=== PATIENT | female | born 1980 | race Caucasian/White ===

== ENCOUNTER 2018-09-29 04:52 | Emergency (ER) | payer OTHER ==
[2018-09-29] MEDS ORDERED: ONDANSETRON 4 MG/2 ML VIAL IVP STA ×2 (05:11→08:53)
[2018-09-29] MEDS ORDERED: SODIUM CHLORIDE 0.9% 1,000 ML IV ONE ×3 (05:11→08:23)
--- NOTE | 2018-09-29 05:28 | ED ---
Nausea/Vomiting/Diarrhea HPI - General Chief complaint: Nausea/Vomiting/Diarrhea Stated complaint: Vomiting Time Seen by Provider: 09/29/18 05:05 Source: patient, family Mode of arrival: ambulatory Limitations: no limitations - History of Present Illness Initial comments: This patient is a 38-year-old woman who presents to be evaluated for nausea and vomiting. She states that the symptoms have been going on little over 24 hours now. She has had greater than 20 episodes of vomiting. She does have some associated diffuse, crampy, abdominal pain. The patient states that her children had had similar symptoms A few days prior to her developing symptoms. Patient denies any change in bowel movements. No urinary symptoms. With the last episode of vomiting she states there may have been a trace of blood and that prompted her to be seen here. MD complaint: nausea, vomiting Onset/Timin -: hour(s) Description of Vomiting: food contents, watery Associated Abdominal Pain: Yes Location: diffuse Severity: mild Quality: cramping Consistency: constant Improves with: none Worsens with: none Context: sick contacts Associated Symptoms: denies other symptoms - Related Data Previous Rx's Medication Instructions Recorded Ondansetron Odt [Zofran ODT] 4 mg PO Q8HR PRN #10 tab 09/29/18 Allergies Allergy/AdvReac Type Severity Reaction Status Date / Time No Known Allergies Allergy Verified 09/29/18 05:00 Review of Systems ROS Statement: Those systems with pertinent positive or pertinent negative responses have been documented in the HPI. ROS Other: All systems not noted in ROS Statement are negative. Constitutional: Denies: fever, chills Respiratory: Denies: cough, dyspnea Cardiovascular: Denies: chest pain, palpitations Gastrointestinal: Reports: as per HPI, abdominal pain, nausea, vomiting, hematemesis. Denies: diarrhea, constipation, melena, hematochezia Genitourinary: Denies: dysuria, hematuria Musculoskeletal: Denies: back pain Skin: Denies: rash Neurological: Denies: headache, weakness, numbness Past Medical History Past Medical History: No Reported History Additional Past Medical History / Comment(s): sciatica, anemia History of Any Multi-Drug Resistant Organisms: None Reported Past Surgical History: No Surgical Hx Reported Past Psychological History: No Psychological Hx Reported Smoking Status: Current every day smoker Past Alcohol Use History: Occasional Past Drug Use History: None Reported General Exam Limitations: no limitations General appearance: alert, in no apparent distress Head exam: Present: atraumatic, normocephalic Eye exam: Present: normal appearance. Absent: scleral icterus, conjunctival injection ENT exam: Present: mucous membranes dry Respiratory exam: Present: normal lung sounds bilaterally. Absent: respiratory distress, wheezes, rales, rhonchi, stridor Cardiovascular Exam: Present: regular rate, normal rhythm, normal heart sounds. Absent: systolic murmur, diastolic murmur, rubs, gallop GI/Abdominal exam: Present: soft. Absent: distended, tenderness, guarding, rebound, rigid, organomegaly, mass Extremities exam: Present: normal inspection, normal capillary refill. Absent: pedal edema, calf tenderness Back exam: Present: normal inspection. Absent: CVA tenderness (R), CVA tenderness (L) Neurological exam: Present: alert Skin exam: Present: warm, dry, intact, normal color. Absent: rash Course Vital Signs 09/29/18 09/29/18 04:55 06:20 Temperature 98 F Pulse Rate 124 H 101 H Respiratory 20 18 Rate Blood Pressure 150/123 142/92 O2 Sat by Pulse 99 100 Oximetry Medical Decision Making - Lab Data Result diagrams: 09/29/18 05:15 09/29/18 05:15 Lab Results 09/29/18 09/29/18 09/29/18 Range/Units 05:15 05:15 06:20 WBC 17.8 H (3.8-10.6) k/uL RBC 4.20 (3.80-5.40) m/uL Hgb 16.4 H (11.4-16.0) gm/dL Hct 49.0 H (34.0-46.0) % MCV 116.7 H (80.0-100.0) fL MCH 39.1 H (25.0-35.0) pg MCHC 33.5 (31.0-37.0) g/dL RDW 13.2 (11.5-15.5) % Plt Count 218 (150-450) k/uL Neutrophils % (Manual) 96 % Lymphocytes % (Manual) 4 % Neutrophils # (Manual) 17.09 H (1.3-7.7) k/uL Lymphocytes # (Manual) 0.71 L (1.0-4.8) k/uL Nucleated RBCs 0 (0-0) /100 WBC Manual Slide Review Performed Macrocytosis Marked Sodium 136 L (137-145) mmol/L Potassium 4.1 (3.5-5.1) mmol/L Chloride 98 (98-107) mmol/L Carbon Dioxide 7 L* (22-30) mmol/L Anion Gap 31 mmol/L BUN 9 (7-17) mg/dL Creatinine 0.95 (0.52-1.04) mg/dL Est GFR (CKD-EPI)AfAm 89 (>60 ml/min/1.73 sqM) Est GFR (CKD-EPI)NonAf 77 (>60 ml/min/1.73 sqM) Glucose 154 H (74-99) mg/dL Calcium 9.7 (8.4-10.2) mg/dL Total Bilirubin 1.8 H (0.2-1.3) mg/dL AST 56 H (14-36) U/L ALT 77 H (9-52) U/L Alkaline Phosphatase 190 H (38-126) U/L Total Protein 9.4 H (6.3-8.2) g/dL Albumin 5.6 H (3.5-5.0) g/dL Amylase 77 (30-110) U/L Lipase 103 (23-300) U/L Urine Color Urine Appearance (Clear) Urine pH (5.0-8.0) Ur Specific [place] (1.001-1.035) Urine Protein (Negative) Urine Glucose (UA) (Negative) Urine Ketones (Negative) Urine Blood (Negative) Urine Nitrite (Negative) Urine Bilirubin (Negative) Urine Urobilinogen (<2.0) mg/dL Ur Leukocyte Esterase (Negative) Urine RBC (0-5) /hpf Urine WBC (0-5) /hpf Ur Squamous Epith Cells (0-4) /hpf Hyaline Casts (0-2) /lpf Urine Mucus (None) /hpf Urine HCG, Qual Not Detected (Not Detectd) 09/29/18 Range/Units 06:20 WBC (3.8-10.6) k/uL RBC (3.80-5.40) m/uL Hgb (11.4-16.0) gm/dL Hct (34.0-46.0) % MCV (80.0-100.0) fL MCH (25.0-35.0) pg MCHC (31.0-37.0) g/dL RDW (11.5-15.5) % Plt Count (150-450) k/uL Neutrophils % (Manual) % Lymphocytes % (Manual) % Neutrophils # (Manual) (1.3-7.7) k/uL Lymphocytes # (Manual) (1.0-4.8) k/uL Nucleated RBCs (0-0) /100 WBC Manual Slide Review Macrocytosis Sodium (137-145) mmol/L Potassium (3.5-5.1) mmol/L Chloride (98-107) mmol/L Carbon Dioxide (22-30) mmol/L Anion Gap mmol/L BUN (7-17) mg/dL Creatinine (0.52-1.04) mg/dL Est GFR (CKD-EPI)AfAm (>60 ml/min/1.73 sqM) Est GFR (CKD-EPI)NonAf (>60 ml/min/1.73 sqM) Glucose (74-99) mg/dL Calcium (8.4-10.2) mg/dL Total Bilirubin (0.2-1.3) mg/dL AST (14-36) U/L ALT (9-52) U/L Alkaline Phosphatase (38-126) U/L Total Protein (6.3-8.2) g/dL Albumin (3.5-5.0) g/dL Amylase (30-110) U/L Lipase (23-300) U/L Urine Color Yellow Urine Appearance Clear (Clear) Urine pH 6.0 (5.0-8.0) Ur Specific [place] 1.017 (1.001-1.035) Urine Protein 3+ H (Negative) Urine Glucose (UA) Negative (Negative) Urine Ketones 4+ H (Negative) Urine Blood Moderate H (Negative) Urine Nitrite Negative (Negative) Urine Bilirubin 2+ H (Negative) Urine Urobilinogen 8.0 (<2.0) mg/dL Ur Leukocyte Esterase Negative (Negative) Urine RBC 3 (0-5) /hpf Urine WBC 2 (0-5) /hpf Ur Squamous Epith Cells 4 (0-4) /hpf Hyaline Casts 39 H (0-2) /lpf Urine Mucus Rare H (None) /hpf Urine HCG, Qual (Not Detectd) - EKG Data -: EKG Interpreted by Me EKG shows normal: sinus rhythm, axis (Normal), intervals (Normal), QRS complexes (Normal), ST-T waves (Normal) Rate: tachycardia (Rate 102 BPM) Disposition Clinical Impression: Vomiting, Abdominal pain Disposition: HOME SELF-CARE Condition: Good Instructions: Abdominal Pain (ED), Acute Nausea and Vomiting (ED) Prescriptions: Ondansetron Odt [Zofran ODT] 4 mg PO Q8HR PRN #10 tab PRN Reason: Nausea Is patient prescribed a controlled substance at d/c from ED?: No Referrals: None,Stated [Primary Care Provider] - 1-2 days
[2018-09-29 05:38] LABS: HGB 16.4 gm/dL (11.4-16.0); MCH 39.1 pg (25.0-35.0); MCHC 33.5 g/dL (31.0-37.0); MCV 116.7 fL (80.0-100.0); Macrocytosis Marked; Mean Platelet Volume 8.1; Platelet Count 218 k/uL (150-450); RDW 13.2 % (11.5-15.5); WBC 17.8 k/uL (3.8-10.6)
[2018-09-29 05:44] LABS: Albumin 5.6 g/dL (3.5-5.0); Calcium 9.7 mg/dL (8.4-10.2); Potassium 4.1 mmol/L (3.5-5.1); Total Bilirubin 1.8 mg/dL (0.2-1.3); Total Protein 9.4 g/dL (6.3-8.2)
[2018-09-29 06:05] LABS: Lymphocytes # (M) 0.71 k/uL (1.0-4.8); Neutrophils # (M) 17.09 k/uL (1.3-7.7); Neutrophils % (M) 96 %; Nucleated Red Blood Cells 0 /100 WBC (0-0); Total Cells Counted 100
[2018-09-29] MEDS ORDERED: MORPHINE SULFATE 4 MG/ML SYRINGE IV STA (06:23)
[2018-09-29 06:42] LABS: Appearance,Urine Clear (Clear); Bilirubin,Urine 2+ (Negative); Blood,Urine Moderate (Negative); Color,Urine Yellow; Glucose,Urine (UA) Negative (Negative); Hyaline Casts,Urine 39 /lpf (0-2); Ketones,Urine 4+ (Negative); Leukocyte Esterase,Urine Negative (Negative); Mucus,Urine Rare /hpf; Nitrite,Urine Negative (Negative); Protein,Urine 3+ (Negative); RBC,Urine 3 /hpf (0-5); Specific Gravity,Urine 1.017 (1.001-1.035); Squamous Epithelial Cell,Urine 4 /hpf (0-4); WBC,Urine 2 /hpf (0-5)
--- NOTE | 2018-09-29 06:50 | CT ---
EXAM: CT Abdomen and Pelvis Without Intravenous Contrast CLINICAL HISTORY: ITS.REASON CT Reason: Pain TECHNIQUE: Axial computed tomography images of the abdomen and pelvis without intravenous contrast. CTDI is 7.8 mGy and DLP is 427 mGy-cm. This CT exam was performed using one or more of the following dose reduction techniques: automated exposure control, adjustment of the mA and/or kV according to patient size, and/or use of iterative reconstruction technique. Coronal and sagittal reformatted images were created and reviewed. COMPARISON: No relevant prior studies available. FINDINGS: Lung bases: Unremarkable. No mass. No consolidation. Mediastinum: Small hiatal hernia. ABDOMEN: Liver: Fatty liver. Gallbladder and bile ducts: Unremarkable. No calcified stones. No ductal dilation. Pancreas: Unremarkable. No ductal dilation. Spleen: Unremarkable. No splenomegaly. Adrenals: Unremarkable. No mass. Kidneys and ureters: Punctate left intrarenal calculus. No obstructing stones. No hydronephrosis. Stomach and bowel: Unremarkable. No obstruction. No mucosal thickening. PELVIS: Appendix: No findings to suggest acute appendicitis. Bladder: Unremarkable. No stones. Reproductive: Unremarkable as visualized. ABDOMEN and PELVIS: Intraperitoneal space: Unremarkable. No free air. No significant fluid collection. Bones/joints: Degenerative changes of the spine with a levoconvex scoliosis. No acute fracture. No dislocation. Soft tissues: Unremarkable. Vasculature: Unremarkable. No abdominal aortic aneurysm. Lymph nodes: Unremarkable. No enlarged lymph nodes. IMPRESSION: Fatty liver. Small hiatal hernia. Punctate left intrarenal calculus
[2018-09-29 09:53] LABS: ALT 58 U/L (9-52); AST 39 U/L (14-36); Albumin 3.9 g/dL (3.5-5.0); Alkaline Phosphatase 125 U/L (38-126); Anion Gap 18 mmol/L; Blood Urea Nitrogen 7 mg/dL (7-17); Calcium 7.3 mg/dL (8.4-10.2); Carbon Dioxide 10 mmol/L (22-30); Chloride 110 mmol/L (98-107); Glucose 93 mg/dL (74-99); Sodium 138 mmol/L (137-145); Total Bilirubin 1.1 mg/dL (0.2-1.3); Total Protein 6.6 g/dL (6.3-8.2)
[2018-09-29 10:08] VITALS: BP 133/82; PULSE 101; RESP 18; TEMP 98.6
== END 2018-09-29 10:08 | disposition home or self-care (01) ==
LOC: EC 04:52
DX: R11.2 Nausea with vomiting, unspecified (principal); R10.84 Generalized abdominal pain; F17.200 Nicotine dependence, unspecified, uncomplicated
CPT/HCPCS: 36415; 93005; 80053; 82150; 83690; 85025; 81001; 81025; 74176; 99284; 96374; 96375; 96376; 96361 ×4; J2270; J2405

== ENCOUNTER → 2019-02-17 | Outpatient (CLI) | payer OTHER ==
--- NOTE | 2019-02-17 13:57 | CT ---
EXAMINATION TYPE: CT abdomen pelvis w con DATE OF EXAM: 02/17/2019 HISTORY: Pelvic pain, hematuria CT DLP: 613mGycm Automated Exposure Control for Dose Reduction was Utilized. CONTRAST: CT scan of the abdomen and pelvis is performed with IV Contrast, patient injected with 100 mL of Isov ue 300. COMPARISON: 09/29/2018. FINDINGS: LUNG BASES: No significant abnormality is appreciated. LIVER/GB: Moderate degree hepatic steatosis is seen, limiting evaluation for hepatic masses. No radio paque calculi are seen within the gallbladder. PANCREAS: No significant abnormality is seen. SPLEEN: Benign splenic granuloma is noted. ADRENALS: No significant abnormality is seen. KIDNEYS: Left and scarring is seen of the left upper pole. Otherwise the kidneys enhance and excrete symmetrically. No hydronephrosis. BOWEL: There is very subtle pericolonic fat stranding surrounding the hepatic flexure. Multifocal sub mucosal fat deposition is seen within the colon that can be seen in chronic colitis. No dilated large or small bowel. UTERUS/ADNEXA: Follicular and/or cystic changes are seen of the bilateral ovaries. Probable nabothian cyst is seen within the cervix. LYMPH NODES: No greater than 1cm abdominal or pelvic lymph nodes are appreciated. OSSEOUS STRUCTURES: Minimal degenerative changes of the spine. IMPRESSION: 1. Findings suggesting mild acute uncomplicated hepatic flexure colitis. Submucosal deficits of fat w ithin the colon multifocally can also be seen in chronic colitis. 2. Moderate degree hepatic steatosis. 3. No suspicious renal lesion in this patient with hematuria. Urinary bladder does not contain contra st and is suboptimally evaluated on CT although no gross evidence of wall thickening is seen. 4. Follicular and/or cystic changes are seen of the ovaries in this patient with pelvic pain. Pelvic ultrasound could assess for hemorrhagic follicles or potential endometriomas.
== END | disposition home or self-care (01) ==
LOC: RADCTMAIN 09:12
PROVIDERS: ATTEND Family Medicine
DX: K76.0 Fatty (change of) liver, not elsewhere classified (principal); K63.89 Other specified diseases of intestine
CPT/HCPCS: 74177; Q9967

== ENCOUNTER → 2019-02-23 | Outpatient (CLI) | payer OTHER ==
--- NOTE | 2019-02-24 04:01 | NM ---
EXAMINATION TYPE: NM hepatobiliary w EF DATE OF EXAM: 02/23/2019 COMPARISON: NONE HISTORY: 39-year-old female with epigastric and abdominal pain, nausea and vomiting, decrease in appe tite, elevated LFTs. TECHNIQUE: After the intravenous administration of 4.22 mCi Tc 99m Mebrofenin hepatobiliary scintigra phy is performed. Immediate images post injection. FINDINGS: There is satisfactory initial accumulation of tracer by the liver. The gallbladder is visualized wit hin 12 minutes. The small bowel activity is noted within 30 minutes. At one hour 8 ounces of oral e nsure plus is given to mimic CCK and gallbladder ejection fraction is calculated at 81 %, slightly el evated (normal 35-80%). IMPRESSION: 1. No scintigraphic evidence for acute/chronic cholecystitis or biliary dyskinesia. 2. Slightly elevated gallbladder ejection fraction. This may be seen in the setting of gallbladder hy perkinesis.
== END | disposition home or self-care (01) ==
LOC: RADNMMAIN 15:11
PROVIDERS: ATTEND Family Medicine
DX: R94.8 Abnormal results of function studies of other organs and systems (principal); R10.84 Generalized abdominal pain; K76.0 Fatty (change of) liver, not elsewhere classified
CPT/HCPCS: 78226; A9537

== ENCOUNTER 2019-03-03 12:55 | Day surgery (SDC) | payer OTHER ==
[2019-02-26 13:36] VITALS: BMI 29.0
[~2019-03-03 12:55] MED LIST: LACTATED RINGERS 1,000 ML IV SCH; LIDOCAINE 1% 20 ML VIAL (10MG/ML) FOR IV START INTRADERMA PRN
[2019-03-03 13:15] VITALS: RESP 16; TEMP 97.5
[2019-03-03] MEDS ORDERED: fentaNYL (PF) 50 MCG/ML 2 ML AMP ONE (13:27)
[2019-03-03] MEDS ORDERED: MIDAZOLAM 2 MG/2 ML VIAL ONE (13:27)
[2019-03-03] MEDS ORDERED: PROPOFOL 10 MG/ML 20 ML VIAL IV ONE (13:27)
[2019-03-03] MEDS ORDERED: ONDANSETRON 4 MG/2 ML VIAL IVP ONE (13:30)
[2019-03-03 14:10] VITALS: BP 119/88; PULSE 85
--- NOTE | 2019-03-03 14:24 | P.PCN ---
Date of Procedure: 03/03/19 Procedure(s) Performed: Procedure: Colonoscopy and biopsy. Preoperative diagnosis: Change in bowel habits and suspected colitis. Postoperative diagnosis: 1. Normal colon and terminal ileum. 2. Biopsies obtained from the terminal ileum and right colon. Preparation: HalfLytely prep. Sedation: Was provided by anesthesia. Brief clinical history: The patient is a 39-year-old female who is scheduled for this evaluation because of change in bowel habits and suspected colitis on CT performed earlier this month. Procedure: With the patient on her left lateral decubitus position and after informed consent and adequate sedation, the perianal area was inspected and it did not show any fissures or fistulas. There were no masses felt on digital rectal examination. The Olympus CFH 190L video colonoscope was then inserted in the rectum in the usual fashion and advanced to the cecum. I intubated the il eocecal valve and examined the terminal ileum. Terminal ileum and colon appeared healthy with no evidence of edema, erythema, friability, ulceration, exudation or spontaneous bleeding. No polyps or tumors were seen. No obvious diverticular disease or other pathology. I obtained biopsies from the terminal ileum and right colon then the endoscope was withdrawn. The patient tolerated the procedure well. Plan: The patient was reassured. She will follow-up with you as planned. Further plans based on her course and biopsy results.
== END 2019-03-03 14:33 | disposition home or self-care (01) ==
LOC: ORWHC2ENDO 12:55
DX: R19.4 Change in bowel habit (principal); F17.200 Nicotine dependence, unspecified, uncomplicated; Z79.1 Long term (current) use of non-steroidal anti-inflammatories (NSAID)
CPT/HCPCS: 81025; 88305; 45380; J2250; J2405; J3010; J2704

== ENCOUNTER → 2019-03-04 | Outpatient (CLI) | payer OTHER ==
--- NOTE | 2019-03-05 09:04 | US ---
EXAMINATION TYPE: US transvaginal DATE OF EXAM: 03/04/2019 COMPARISON: NONE CLINICAL HISTORY: R10.2 Pelvic and perineal pain. Pelvic pain x few months, pt unsure of LMP TECHNIQUE: Transvaginal (TV). Transvaginal sonographic images of the pelvis were acquired. EXAM MEASUREMENTS: Uterus: 8.2 x 3.5 x 4.1 cm Endometrial Stripe: 1.0 cm Right Ovary: 3.2 x 2.6 x 1.4 cm Left Ovary: 2.7 x 2.6 x 2.4 cm 1. Uterus: Anteverted 2. Endometrium: Heterogeneous with cystic areas within. There appears to be a possible vascular stal k leading to this hypoechoic area and pelvis possible. 3. Right Ovary: wnl 4. Left Ovary: Cyst= 2.3 x 1.4 x 2.0 cm. This appears simple and is likely physiologic in this preme nopausal female. 5. Bilateral Adnexa: wnl 6. Posterior cul-de-sac: wnl IMPRESSION: Possible endometrial polyp as there is endometrial heterogeneity in the questionable vasc ular stalk leading to this possible polyp on image 22/33. Sonohysterogram could be performed for furt her evaluation or direct visualization.
== END | disposition home or self-care (01) ==
LOC: RADUSWWP 16:16
PROVIDERS: ATTEND Obstetrics & Gynecology
DX: R10.2 Pelvic and perineal pain (principal)
CPT/HCPCS: 76830

== ENCOUNTER → 2019-07-18 | Outpatient (CLI) | payer OTHER ==
--- NOTE | 2019-07-20 04:16 | CT ---
EXAMINATION TYPE: CT abdomen pelvis w con DATE OF EXAM: 07/18/2019 COMPARISON: 02/17/2019 and 09/29/2018 HISTORY: 39-year-old female Enlarged liver, abdominal pain TECHNIQUE: Contiguous axial scanning of the abdomen and pelvis following administration of 100 ml Iso sada 300 IV contrast. Delayed images through the kidneys and coronal/sagittal reconstructions perform ed. CT DLP: 1192 mGycm Automated exposure control for dose reduction was used. FINDINGS: Heart normal size without pericardial effusion. Lung bases clear without pleural effusion. Liver enlarged measuring 22.9 cm craniocaudal. Calcified granuloma anterior mid liver. Low attenuatio n of the hepatic parenchyma in comparison to the spleen on venous phase. No biliary ductal dilatation. Portal venous system is patent. Gallbladder, adrenal glands, kidneys, and pancreas appear within normal limits. Calcified granuloma anterior spleen. No dilated small bowel, free fluid, or free air. No mesenteric or retroperitoneal lymphadenopathy. Normal appendix. Prominent liquid stool seen throughout gas seen colon. Redundant sigmoid colon. No p ericolonic inflammatory change. Bladder is nondistended. Uterus is anteverted. Both ovaries are visualized. 1.5 cm dominant follicle or functional cyst in the left ovary. Pelvic phleboliths. No abnormal fluid collection in the pelvis or pelvic lymphadenopathy seen. Bones: No osseous destructive process. IMPRESSION: 1. HEPATOMEGALY (22.9 CM) WITH AT LEAST MODERATE HEPATIC STEATOSIS. CORRELATE WITH LFT's, LIPID PROFI LE, AND PATIENT RISK FACTORS. 2. PROMINENT LIQUID STOOL THROUGHOUT GASSY COLON. FINDINGS SUGGEST DIARRHEAL STATE. CLINICALLY CORREL ATE. 3. PRIOR GRANULOMATOUS DISEASE.
== END | disposition home or self-care (01) ==
LOC: RADCTMAIN 10:11
PROVIDERS: ATTEND Family Medicine
DX: D71 Functional disorders of polymorphonuclear neutrophils (principal); K76.0 Fatty (change of) liver, not elsewhere classified; R16.0 Hepatomegaly, not elsewhere classified
CPT/HCPCS: 74177; Q9967

== ENCOUNTER 2020-01-13 13:33 | Inpatient (IN) | payer BC, OTHER ==
[2020-01-13] MEDS ORDERED: MORPHINE SULFATE 4 MG/ML SYRINGE IV STA (13:41)
[2020-01-13] MEDS ORDERED: SODIUM CHLORIDE 0.9% 1,000 ML IV STA (13:41)
[2020-01-13] MEDS ORDERED: THIAMINE 100 MG/ML 2 ML VIAL IM STA (13:42)
[2020-01-13] MEDS ORDERED: LORazepam 2 MG/ML INJ IV STA (13:42)
--- NOTE | 2020-01-13 14:19 | ED ---
General Adult HPI - General Chief complaint: Nausea/Vomiting/Diarrhea Stated complaint: Cough, Vomiting Time Seen by Provider: 01/13/20 13:37 Source: patient, family, EMS, RN notes reviewed, old records reviewed Mode of arrival: EMS Limitations: physical limitation - History of Present Illness Initial comments: 39-year-old female presented for evaluation of generalized weakness, fatigue, nausea vomiting and abdominal pain. Symptoms have been present for approximately one week. Patient admits to heavy daily alcohol consumption up until one week ago where she began feeling ill. She states she has not had a drink in the last 6 or 7 days. She is reporting diffuse abdominal pain. She also complains of cough and congestion. She's had several episodes of vomiting daily for the past one week and has been unable to keep anything down. She also reports some diarrhea. - Related Data Home Medications Medication Instructions Recorded Confirmed Melatonin Unknown Dose 1 tab PO HS PRN 01/13/20 01/13/20 Allergies Allergy/AdvReac Type Severity Reaction Status Date / Time No Known Allergies Allergy Verified 01/13/20 14:14 Review of Systems ROS Statement: Those systems with pertinent positive or pertinent negative responses have been documented in the HPI. ROS Other: All systems not noted in ROS Statement are negative. Past Medical History Past Medical History: No Reported History Additional Past Medical History / Comment(s): freq nausea,elevated enzymes,bleeding with urination,sciatica, anemia,heart murmur as a child History of Any Multi-Drug Resistant Organisms: None Reported Past Surgical History: No Surgical Hx Reported Additional Past Anesthesia/Blood Transfusion Reaction / Comment(s): never has had general anesthesia,has had epidural in past with labor. Past Psychological History: No Psychological Hx Reported Smoking Status: Current every day smoker Past Alcohol Use History: Abuse, Daily Past Drug Use History: None Reported - Past Family History Mother Additional Family Medical History / Comment(s): MTHR bleeding disorder Sister(s) Additional Family Medical History / Comment(s): "sticky platelet disorder." General Exam Limitations: physical limitation General appearance: alert, in no apparent distress Head exam: Present: atraumatic, normocephalic Eye exam: Present: normal appearance, PERRL ENT exam: Present: mucous membranes dry Neck exam: Absent: normal inspection, tenderness Respiratory exam: Present: normal lung sounds bilaterally. Absent: respiratory distress, wheezes Cardiovascular Exam: Present: normal rhythm, tachycardia GI/Abdominal exam: Present: soft, tenderness (Minimal diffuse tenderness). Ab sent: distended, guarding, rebound Extremities exam: Present: normal inspection, normal capillary refill. Absent: pedal edema, calf tenderness Neurological exam: Present: alert, oriented X3, CN II-XII intact. Absent: motor sensory deficit Psychiatric exam: Present: depressed, flat affect Skin exam: Present: warm, dry, intact. Absent: cyanosis, diaphoretic Course Vital Signs 01/13/20 01/13/20 13:34 13:43 Temperature 98 F Pulse Rate 116 H 114 H Respiratory 16 18 Rate Blood Pressure 114/87 104/75 O2 Sat by Pulse 100 96 Oximetry EKG Findings - EKG Comments: EKG Findings:: EKG: Sinus tachycardia prolonged QT, rate of 103 KS interval 144, QRS duration 90, QTC prolonged at 542. Medical Decision Making - Medical Decision Making 39-year-old female with generalized weakness, vomiting. Patient's. Skin cach ectic, dehydrated on exam. She admits to heavy alcohol consumption of she states she quit drinking about one week ago. Workup in the emergency department reveals chest x-ray which is negative for acute cardiopulmonary disease. She has hyponatremia with a sodium of 127. Potassium 3.2 magnesium 1.5. These are replaced. She will be admitted for symptomatic control. She will be closely monitored on a monitored bed as she has QT prolongation which is likely secondary to try and abnormalities. Case is discussed with Dr. Marley who will admit. - Lab Data Result diagrams: 01/13/20 13:45 01/13/20 13:45 Lab Results 01/13/20 01/13/20 01/13/20 Range/Units 13:45 13:45 13:45 WBC 10.1 (3.8-10.6) k/uL RBC 3.06 L (3.80-5.40) m/uL Hgb 11.7 (11.4-16.0) gm/dL Hct 34.3 (34.0-46.0) % MCV 112.2 H (80.0-100.0) fL MCH 38.3 H (25.0-35.0) pg MCHC 34.1 (31.0-37.0) g/dL RDW 13.9 (11.5-15.5) % Plt Count 125 L (150-450) k/uL Neutrophils % 85 % Lymphocytes % 6 % Monocytes % 6 % Eosinophils % 1 % Basophils % 0 % Neutrophils # 8.6 H (1.3-7.7) k/uL Lymphocytes # 0.6 L (1.0-4.8) k/uL Monocytes # 0.7 (0-1.0) k/uL Eosinophils # 0.1 (0-0.7) k/uL Basophils # 0.0 (0-0.2) k/uL Manual Slide Review Performed Poikilocytosis (manual Present Anisocytosis (manual) Present Macrocytosis Marked A PT 9.7 (9.0-12.0) sec INR 0.9 (<1.2) APTT 22.4 (22.0-30.0) sec Sodium 127 L (137-145) mmol/L Potassium 3.2 L (3.5-5.1) mmol/L Chloride 88 L (98-107) mmol/L Carbon Dioxide 21 L (22-30) mmol/L Anion Gap 18 mmol/L BUN 19 H (7-17) mg/dL Creatinine 0.32 L (0.52-1.04) mg/dL Est GFR (CKD-EPI)AfAm >90 (>60 ml/min/1.73 sqM) Est GFR (CKD-EPI)NonAf >90 (>60 ml/min/1.73 sqM) Glucose 100 H (74-99) mg/dL Plasma Lactic Acid Luis Enrique (0.7-2.0) mmol/L Calcium 9.0 (8.4-10.2) mg/dL Magnesium 1.5 L (1.6-2.3) mg/dL Total Bilirubin 1.3 (0.2-1.3) mg/dL AST 42 H (14-36) U/L ALT 15 (4-34) U/L Alkaline Phosphatase 140 H (38-126) U/L Troponin I (0.000-0.034) ng/mL Total Protein 6.8 (6.3-8.2) g/dL Albumin 3.9 (3.5-5.0) g/dL 01/13/20 01/13/20 Range/Units 13:45 13:45 WBC (3.8-10.6) k/uL RBC (3.80-5.40) m/uL Hgb (11.4-16.0) gm/dL Hct (34.0-46.0) % MCV (80.0-100.0) fL MCH (25.0-35.0) pg MCHC (31.0-37.0) g/dL RDW (11.5-15.5) % Plt Count (150-450) k/uL Neutrophils % % Lymphocytes % % Monocytes % % Eosinophils % % Basophils % % Neutrophils # (1.3-7.7) k/uL Lymphocytes # (1.0-4.8) k/uL Monocytes # (0-1.0) k/uL Eosinophils # (0-0.7) k/uL Basophils # (0-0.2) k/uL Manual Slide Review Poikilocytosis (manual Anisocytosis (manual) Macrocytosis PT (9.0-12.0) sec INR (<1.2) APTT (22.0-30.0) sec Sodium (137-145) mmol/L Potassium (3.5-5.1) mmol/L Chloride (98-107) mmol/L Carbon Dioxide (22-30) mmol/L Anion Gap mmol/L BUN (7-17) mg/dL Creatinine (0.52-1.04) mg/dL Est GFR (CKD-EPI)AfAm (>60 ml/min/1.73 sqM) Est GFR (CKD-EPI)NonAf (>60 ml/min/1.73 sqM) Glucose (74-99) mg/dL Plasma Lactic Acid Luis Enrique 1.2 (0.7-2.0) mmol/L Calcium (8.4-10.2) mg/dL Magnesium (1.6-2.3) mg/dL Total Bilirubin (0.2-1.3) mg/dL AST (14-36) U/L ALT (4-34) U/L Alkaline Phosphatase (38-126) U/L Troponin I <0.012 (0.000-0.034) ng/mL Total Protein (6.3-8.2) g/dL Albumin (3.5-5.0) g/dL Critical Care Time Critical Care Time: Yes Total Critical Care Time: 35 Disposition Clinical Impression: Dehydration, Hypokalemia, Hypomagnesemia, Hyponatremia Disposition: ADMITTED IP TO THIS HOSP Condition: Stable Is patient prescribed a controlled substance at d/c from ED?: No Referrals: None,Stated [Primary Care Provider] - 1-2 days Decision to Admit Reason: Admit from EC Decision Date: 01/13/20 Decision Time: 15:57
[2020-01-13 14:22] LABS: ALT 15 U/L (4-34); AST 42 U/L (14-36); African American GFR (CKD) >90 (>60 ml/min/1.73 sqM); Albumin 3.9 g/dL (3.5-5.0); Alkaline Phosphatase 140 U/L (38-126); Anion Gap 18 mmol/L; Blood Urea Nitrogen 19 mg/dL (7-17); Carbon Dioxide 21 mmol/L (22-30); Chloride 88 mmol/L (98-107); Glucose 100 mg/dL (74-99); Magnesium 1.5 mg/dL (1.6-2.3); Non-African American GFR(CKD) >90 (>60 ml/min/1.73 sqM); Sodium 127 mmol/L (137-145); Total Bilirubin 1.3 mg/dL (0.2-1.3); Total Protein 6.8 g/dL (6.3-8.2)
[2020-01-13 14:28] LABS: Potassium 3.2 mmol/L (3.5-5.1)
[2020-01-13 14:36] LABS: Basophils % (A) 0 %; Eosinophils # (A) 0.1 k/uL (0-0.7); Eosinophils % (A) 1 %; HCT 34.3 % (34.0-46.0); HGB 11.7 gm/dL (11.4-16.0); Lymphocytes # (A) 0.6 k/uL (1.0-4.8); Lymphocytes % (A) 6 %; MCH 38.3 pg (25.0-35.0); MCHC 34.1 g/dL (31.0-37.0); MCV 112.2 fL (80.0-100.0); Macrocytosis Marked; Mean Platelet Volume 11.4; Monocytes # (A) 0.7 k/uL (0-1.0); Monocytes % (A) 6 %; Neutrophils # (A) 8.6 k/uL (1.3-7.7); Neutrophils % (A) 85 %; Platelet Count 125 k/uL (150-450); RBC 3.06 m/uL (3.80-5.40); RDW 13.9 % (11.5-15.5); WBC 10.1 k/uL (3.8-10.6)
[2020-01-13 14:45] LABS: INR 0.9 (<1.2); Partial Thromboplastin Time 22.4 sec (22.0-30.0); Prothrombin Time 9.7 sec (9.0-12.0)
--- NOTE | 2020-01-13 15:08 | XR ---
EXAMINATION TYPE: XR chest 2V DATE OF EXAM: 01/13/2020 COMPARISON: NONE TECHNIQUE: PA and lateral views submitted. HISTORY: Shortness of breath FINDINGS: The lungs are clear and there is no pneumothorax, pleural effusion, or focal pneumonia. Heart size normal. No overt failure. Biapical pleural thickening. IMPRESSION: 1. No acute process.
[2020-01-13 15:19] LABS: Anisocytosis (M) Present; Poikilocytosis (M) Present
[2020-01-13] MEDS ORDERED: LORazepam 2 MG/ML INJ IV PRN ×3 (15:45)
[2020-01-13] MEDS ORDERED: NALOXONE 0.4 MG/ML 1 ML VIAL IV PRN (15:54)
[2020-01-13] MEDS: SODIUM CHLORIDE 0.9% 1,000 ML IV SCH (16:06)
[2020-01-13] MEDS: MAGNESIUM SULFATE-D5W PMX 1 GM in DEXTROSE/WATER 1 100ML.BAG IVPB SCH ×2 (16:06→18:33)
[2020-01-13] MEDS ORDERED: TEMAZEPAM 15 MG CAP PO PRN (17:00)
[2020-01-13] MEDS ORDERED: ACETAMINOPHEN TAB 500 MG TAB PO PRN (17:00)
[2020-01-13] MEDS ORDERED: Magnesium Replacement Protocol 1 EACH MISC MISCELLANE PRN (17:02)
[2020-01-13] MEDS ORDERED: Potassium Replacement Protocol 1 EACH MISC MISCELLANE PRN (17:02)
--- NOTE | 2020-01-13 18:15 | CT ---
EXAMINATION TYPE: CT brain wo con DATE OF EXAM: 01/13/2020 COMPARISON: Brain MR 02/25/2012 HISTORY: Weakness CT DLP: 1091.4 mGycm. Automated Exposure Control for Dose Reduction was Utilized. TECHNIQUE: CT scan of the head is performed without contrast. FINDINGS: There is no acute intracranial hemorrhage, mass effect, or midline shift identified. The ventricles and sulci are within normal limits in size. The globes are intact and the visualized sin uses are remarkable for inflammatory change in the right maxillary sinus. IMPRESSION: No acute intracranial hemorrhage, mass effect, or midline shift is seen.
--- NOTE | 2020-01-13 18:35 | HP ---
HISTORY AND PHYSICAL DATE OF SERVICE: 01/13/2020 CHIEF COMPLAINTS: Nausea, vomiting, diarrhea and weakness. HISTORY OF PRESENT ILLNESS: This 39-year-old woman with a past medical history of multiple medical problems, including possible peripheral neuropathy, history of weakness, history of significant problems with alcohol, not being followed by a primary physician in the outpatient setting, was apparently living with her family. Apparently between her and her , the patient takes about a pint of alcohol, according to the family. The patient is complaining of increasing weakness and diminished p.o. intake. The patient had difficulty in walking and had multiple falls. The patient was taken to [facility] for further evaluation and treatment. There is no history of any fever, rigor or chills. No history of headache, loss of consciousness, seizures at this time. The patient has not had a drink in the last 6 to 7 days. The patient also is complaining of diffuse abdominal pain as well as some cough and congestion. There is no history of any fever, rigors or chills. PAST MEDICAL HISTORY: History of frequent nausea, elevated liver enzymes, history of nicotine dependence, alcohol abuse. HOME MEDICATIONS: Melatonin. ALLERGIES: NONE. FAMILY HISTORY: History of MTHFR bleeding disorder. SOCIAL HISTORY: History of smoking. History of alcohol, as mentioned earlier. REVIEW OF SYSTEMS: ENT: No diminished hearing. No diminished vision. CARDIOVASCULAR SYSTEM: No angina, palpitations. RESPIRATORY SYSTEM: As mentioned earlier. GI: As mentioned earlier. : No dysuria or retention. NERVOUS SYSTEM: No numbness, weakness. ALLERGY/IMMUNOLOGY: No asthma, hayfever. MUSCULOSKELETAL: As mentioned earlier. HEMATOLOGY/ONCOLOGY: No history of anemia. ENDOCRINE: No history of diabetes, hypothyroidism. CONSTITUTIONAL: As mentioned earlier. DERMATOLOGY: Negative. RHEUMATOLOGY: Negative. PSYCHIATRY: As mentioned earlier. PHYSICAL EXAMINATION: Patient alert and oriented x3. Pulse is 114, blood pressure 104/75, respiration 18, temperature 98 degrees, pulse ox 96% on room air. HEENT: Conjunctivae normal. Oral mucosa dry. NECK: No jugular venous distention. CARDIOVASCULAR SYSTEM: S1, S2 muffled. No S3. No S4. RESPIRATORY SYSTEM: Breath sounds diminished at the bases. A few scattered rhonchi and crackles. ABDOMEN: Soft. Mild diffuse discomfort on palpation. LEGS: Bilateral leg edema. NERVOUS SYSTEM: Higher functions as mentioned earlier. Moves all 4 limbs. Mild diffuse weakness diffusely. Otherwise, sensory impairment in both lower limbs. SKIN: Multiple bruises present and telangiectasia also present. LYMPHATICS: No lymph node palpable in neck, axillae or groin. JOINTS: No active deforming arthropathy. LABS: WBC 10.1, hemoglobin 11.7, MCV 112.2, platelets 125. Sodium 137, potassium 3.2. Creatinine 0.32, magnesium 1.5. ASSESSMENT: 1. Nausea and vomiting with possible acute gastroenteritis and gastritis. 2. Significant peripheral neuropathy with gait dysfunction. 3. History of alcoholism as well as acute delirium tremens. 4. Thrombocytopenia. 5. Increased mean corpuscular volume. 6. Hyponatremia. 7. Hypokalemia. 8. Electrolyte abnormalities. 9. Dehydration. 10.Hypomagnesemia. 11.History of anemia. 12.History of cardiac murmur as a child. 13.History of sciatica. 14.Degenerative joint disease. 15.History of nicotine dependence. RECOMMENDATIONS AND DISCUSSION: In this 39-year-old woman who presented with multiple complex medical issues, we will monitor the patient closely, continue the current medications, continue with symptomatic treatment. I recommend CIWA protocol. Otherwise, continue to monitor. I would also recommend PT/OT evaluation and supplement vitamins. Supplement electrolytes. Repeat electrolyte. Possible ECF rehab at this time. Prognosis is guarded because of multiple complex medical issues. Discussed with the patient. See orders for details. CIWA protocol also will be utilized. I recommend that the patient follow up with a primary physician also. MMBARBIL / IJN: [id number] /
[2020-01-13] MEDS: POTASSIUM CHLORIDE 10 MEQ in WATER FOR INJECTION 1 100ML.BAG IVPB SCH ×4 (18:54→22:20)
[2020-01-13] MEDS: HEPARIN SODIUM,PORCINE 5,000 UNIT/ML 1 ML VIAL SQ SCH (20:07)
[2020-01-13] MEDS: THIAMINE 100 MG TAB PO SCH (20:07)
[2020-01-14 00:32] LABS: Amorphous Sediment,Urine Rare /hpf; Appearance,Urine Cloudy (Clear); Bilirubin,Urine Negative (Negative); Blood,Urine Negative (Negative); Color,Urine Yellow; Glucose,Urine (UA) Negative (Negative); Hyaline Casts,Urine 1 /lpf (0-2); Ketones,Urine 2+ (Negative); Leukocyte Esterase,Urine Large (Negative); Mucus,Urine Rare /hpf; Nitrite,Urine Negative (Negative); PH, Urine 6.5 (5.0-8.0); Protein,Urine Trace (Negative); RBC,Urine 1 /hpf (0-5); Specific Gravity,Urine 1.011 (1.001-1.035); Squamous Epithelial Cell,Urine <1 /hpf (0-4); Urobilinogen,Urine <2.0 mg/dL (<2.0); WBC,Urine 10 /hpf (0-5)
[2020-01-14] MEDS: SODIUM CHLORIDE 0.9% 1,000 ML IV SCH ×3 (00:38→19:52)
[2020-01-14] MEDS: POTASSIUM CHLORIDE ER 20 MEQ TAB.ER PO SCH ×4 (00:38→05:53)
[2020-01-14] MEDS ORDERED: ONDANSETRON 4 MG in SODIUM CHLORIDE 0.9% 50 ML IVPB PRN (00:50)
[2020-01-14] MEDS: ONDANSETRON 4 MG/2 ML VIAL IVP PRN ×3 (01:03→22:37)
[2020-01-14 02:50] LABS: Basophils % (A) 0 %; Eosinophils # (A) 0.2 k/uL (0-0.7); Eosinophils % (A) 2 %; HCT 27.3 % (34.0-46.0); Lymphocytes # (A) 0.6 k/uL (1.0-4.8); Lymphocytes % (A) 7 %; MCV 111.2 fL (80.0-100.0); Macrocytosis Marked; Mean Platelet Volume 9.6; Monocytes # (A) 0.3 k/uL (0-1.0); Monocytes % (A) 4 %; Neutrophils # (A) 7.1 k/uL (1.3-7.7); Neutrophils % (A) 86 %; Platelet Count 101 k/uL (150-450); RBC 2.46 m/uL (3.80-5.40); RDW 13.9 % (11.5-15.5); WBC 8.3 k/uL (3.8-10.6)
[2020-01-14] MEDS: HYDROcodone/APAP 5-325MG 1 EACH TAB PO PRN ×3 (02:52→19:51)
[2020-01-14 03:04] LABS: HGB 9.6 gm/dL (11.4-16.0)
[2020-01-14 03:17] LABS: ALT 11 U/L (4-34); AST 43 U/L (14-36); African American GFR (CKD) >90 (>60 ml/min/1.73 sqM); Albumin 2.8 g/dL (3.5-5.0); Alkaline Phosphatase 127 U/L (38-126); Anion Gap 9 mmol/L; Blood Urea Nitrogen 11 mg/dL (7-17); Calcium 7.8 mg/dL (8.4-10.2); Carbon Dioxide 23 mmol/L (22-30); Chloride 95 mmol/L (98-107); Glucose 90 mg/dL (74-99); Magnesium 2.1 mg/dL (1.6-2.3); Non-African American GFR(CKD) >90 (>60 ml/min/1.73 sqM); Sodium 127 mmol/L (137-145); Total Bilirubin 0.5 mg/dL (0.2-1.3); Total Protein 5.3 g/dL (6.3-8.2)
[2020-01-14] MEDS: HEPARIN SODIUM,PORCINE 5,000 UNIT/ML 1 ML VIAL SQ SCH ×2 (08:29→19:51)
[2020-01-14] MEDS: THIAMINE 100 MG TAB PO SCH ×2 (08:30→17:20)
[2020-01-14] MEDS: MULTIVITAMINS, THERA 1 EACH TAB PO SCH (08:30)
[2020-01-14] MEDS: NICOTINE 14MG/24HR PATCH TRANSDERM SCH (08:30)
[2020-01-14] MEDS: PANTOPRAZOLE 40 MG TABLET PO SCH (08:30)
[2020-01-14] MEDS ORDERED: POTASSIUM CHLORIDE ER 20 MEQ TAB.ER PO SCH (10:00)
[2020-01-14] MEDS ORDERED: POTASSIUM CHLORIDE ER 20 MEQ TAB.ER PO STA (11:02)
[2020-01-14 15:08] VITALS: BMI 23.5
--- NOTE | 2020-01-14 23:02 | PN ---
PROGRESS NOTE DATE OF SERVICE: 01/14/2020 This 39-year-old woman who was admitted with nausea, vomiting, diarrhea, weakness is being closely monitored. The patient has significant issues with ETOH, also. The patient has possible peripheral neuropathy. CT of the brain was done which showed no acute abnormality. The peripheral neuropathy could be related to alcohol. The patient is also complaining of generalized weakness. The patient was confused yesterday, is slightly more coherent today. Past medical history reviewed. REVIEW OF SYSTEMS: CARDIOVASCULAR SYSTEM: No angina, palpitations. RESPIRATORY SYSTEM: As mentioned earlier. GI SYSTEM: No nausea, vomiting. : No dysuria, retention. NERVOUS SYSTEM: Numbness and weakness, as mentioned. CURRENT MEDICATIONS: Tylenol p.r.n., [place] 5 mg, Rocephin 1 gm daily, heparin, CIWA protocol with Ativan, multivitamins, Narcan, Zofran, Restoril, vitamin B1. Doses and route of administration are reviewed. PHYSICAL EXAMINATION: Patient is alert and oriented x2. Pulse 90, blood pressure 97/64, respiration 15, temperature was 98 degrees, pulse ox 99% on room air. HEENT: Conjunctivae normal. NECK: No jugular venous distention. CARDIOVASCULAR SYSTEM: S1, S2 muffled. RESPIRATORY SYSTEM: Breath sounds diminished at the bases. A few scattered rhonchi. ABDOMEN: Soft, non-tender. LEGS: No edema. No swelling. NERVOUS SYSTEM: Diffusely weak and tremulous. EXAMINATION OF THE SKIN: Multiple telangiectasia present. LABS: WBC 8.3, hemoglobin 9.6. Sodium 127, potassium 3 and 3.7. Magnesium was 2.1. Cortisol level was 29, random cortisol. ASSESSMENT: 1. Nausea and vomiting; possible acute gastritis and gastroenteritis. 2. 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 3. Acute urinary tract infection, present on admission. 4. History of alcoholism and withdrawal symptoms as well as acute delirium tremens. 5. Thrombocytopenia. 6. Severe gait dysfunction secondary to above. 7. Increased mean corpuscular volume. 8. Hyponatremia. 9. Hyperkalemia. 10.Electrolyte abnormalities. 11.Dehydration, present on admission. 12.Hypomagnesemia. 13.History of anemia. 14.History of cardiac murmur as a child. 15.History of sciatica. 16.History of degenerative joint disease. 17.History of nicotine dependence. 18.FULL CODE. RECOMMENDATIONS AND DISCUSSION: In this 39-year-old woman who presented with multiple complex medical issues, we will monitor the patient closely, continue the current medications, continue symptomatic treatment. I started her on CIWA protocol, Ativan p.r.n. Will also recommend ceftriaxone. Otherwise, continue the rest of the symptomatic treatment with IV fluids and multivitamin supplements. Guarded prognosis because of multiple complex medical issues. Further recommendations to follow. MMODL / IJN: [id number] /
[2020-01-15] MEDS: HYDROcodone/APAP 5-325MG 1 EACH TAB PO PRN ×3 (05:54→19:12)
[2020-01-15] MEDS: SODIUM CHLORIDE 0.9% 1,000 ML IV SCH (05:55)
[2020-01-15] MEDS: NICOTINE 14MG/24HR PATCH TRANSDERM SCH (08:15)
[2020-01-15] MEDS: PANTOPRAZOLE 40 MG TABLET PO SCH (08:15)
[2020-01-15] MEDS: HEPARIN SODIUM,PORCINE 5,000 UNIT/ML 1 ML VIAL SQ SCH ×2 (08:15→19:22)
[2020-01-15] MEDS: MULTIVITAMINS, THERA 1 EACH TAB PO SCH (08:15)
[2020-01-15] MEDS: THIAMINE 100 MG TAB PO SCH ×2 (08:15→17:15)
[2020-01-15] MEDS: ONDANSETRON 4 MG/2 ML VIAL IVP PRN ×2 (10:43→19:39)
[2020-01-15 11:36] LABS: ALT 14 U/L (4-34); AST 58 U/L (14-36); African American GFR (CKD) >90 (>60 ml/min/1.73 sqM); Albumin 2.5 g/dL (3.5-5.0); Alkaline Phosphatase 136 U/L (38-126); Anion Gap 8 mmol/L; Blood Urea Nitrogen 5 mg/dL (7-17); Calcium 8.3 mg/dL (8.4-10.2); Carbon Dioxide 19 mmol/L (22-30); Chloride 105 mmol/L (98-107); Glucose 109 mg/dL (74-99); Non-African American GFR(CKD) >90 (>60 ml/min/1.73 sqM); Potassium 3.7 mmol/L (3.5-5.1); Sodium 132 mmol/L (137-145); Total Bilirubin 0.3 mg/dL (0.2-1.3); Total Protein 4.9 g/dL (6.3-8.2)
[2020-01-15 13:34] LABS: Basophils % (A) 0 %; Eosinophils # (A) 0.1 k/uL (0-0.7); Eosinophils % (A) 2 %; HCT 26.3 % (34.0-46.0); HGB 9.1 gm/dL (11.4-16.0); Lymphocytes # (A) 1.1 k/uL (1.0-4.8); Lymphocytes % (A) 19 %; MCH 39.1 pg (25.0-35.0); MCHC 34.8 g/dL (31.0-37.0); MCV 112.4 fL (80.0-100.0); Macrocytosis Marked; Mean Platelet Volume 10.6; Monocytes # (A) 0.4 k/uL (0-1.0); Monocytes % (A) 7 %; Neutrophils % (A) 70 %; Platelet Count 135 k/uL (150-450); RBC 2.34 m/uL (3.80-5.40); RDW 13.7 % (11.5-15.5); WBC 5.8 k/uL (3.8-10.6)
--- NOTE | 2020-01-15 21:39 | P.CNNES ---
History of Present Illness Consult date: 01/15/20 Requesting physician: Arlette Marley Reason for Consult: Peripheral neuropathy History of Present Illness: Patient is a 39-year-old female came to the hospital for nausea vomiting, not able to eat, and alcoholism. Neurology consult initiated for lower extremity weakness, pain and numbness. Patient states her symptoms started 10 months ago, one day when she got out of bed, felt her right foot was broken. She continued with pain in the right foot. Slowly, the pain involves the left foot also. The pain slowly worked its way up, and extended all the way to the hips. One time it extended even to the abdominal region. Patient also noticed some numbness and pain in her hands as well. patient feels her legs are heavy, drags her leg. She still has problems with her hands and feet. It is hard to walk. She cannot feel with her hands. Sometimes she feels that her feet could not move with her body. she was planning to see a local neurologist, but she lost insurance, therefore never saw a neurologist. At present her symptoms involved from toes up to the mid thighs and hands up to the wrists. EKG showed sinus tachycardia. Computed tomography scan of the brain showed no acute intracranial hemorrhage, mass effect or midline shift. Chest x-ray showed no acute process. Her blood test shows sodium 132 potassium 3.7, renal functions are normal. AST is mildly elevated 58, ALT 14. Hemoglobin 9.1, platelets 135. INR is normal. Patient has history of smoking half pack per day since age 13. patient also drank very heavily, from 1 pint to half a fifth of Rum, almost on a daily basis for 5 years. Prior to that, she used to drink socially. Patient denies diabetes. Review of Systems numbness tingling, pain in the feet. Leg heaviness. leg weakness, frequent falls. complaints of back pain. denies neck pain. denies problems with vision. She does have dizziness sometimes. Past Medical History Past Medical History: No Reported History Additional Past Medical History / Comment(s): freq nausea, elevated enzymes, bleeding with urination, sciatica, anemia, heart murmur as a child, hard to move arms and legs (1.5 years ago) History of Any Multi-Drug Resistant Organisms: None Reported Past Surgical History: No Surgical Hx Reported Past Anesthesia/Blood Transfusion Reactions: No Reported Reaction Additional Past Anesthesia/Blood Transfusion Reaction / Comment(s): never has had general anesthesia,has had epidural in past with labor. Past Psychological History: No Psychological Hx Reported Smoking Status: Current every day smoker Past Alcohol Use History: Abuse, Daily Additional Past Alcohol Use History / Comment(s): started smoking at age 13,<1ppd Past Drug Use History: None Reported - Past Family History Mother Additional Family Medical History / Comment(s): MTHR bleeding disorder Sister(s) Additional Family Medical History / Comment(s): "sticky platelet disorder." Medications and Allergies Home Medications Medication Instructions Recorded Confirmed Type Melatonin Unknown Dose 1 tab PO HS PRN 01/13/20 01/13/20 History Allergies Allergy/AdvReac Type Severity Reaction Status Date / Time No Known Allergies Allergy Verified 01/13/20 14:14 Physical Examination - Vital Signs Vital Signs: Vital Signs Temp Pulse Resp BP BP Pulse Ox 01/15/20 07:29 98.2 F 96 16 90/60 97 01/15/20 00:40 98.6 F 97 13 89/58 98 01/14/20 19:11 98.2 F 102 H 14 91/59 99 Intake and Output 01/15/20 01/15/20 01/15/20 06:59 14:59 22:59 Intake Total 600 Balance 600 Intake: IV 600 Sodium Chloride 0.9% 1, 600 000 ml @ 75 mls/hr IV . [id number] [facility] Rx#:[id number] Other: Voiding Method Bedpan # Voids 1 # Bowel Movements 2 On examination patient is a young female, in no distress. Patient is alert and awake oriented to time place and person. Speech and language functions are normal. Attention, concentration and fund of knowledge is adequate. On cranial nerve examination, pupils are round and reacting, visual romano are full on confrontation, extraocular muscles intact with no nystagmus. Face is symmetric, tongue protrudes the midline. Palatal elevation and sensation normal. On muscle strength testing, her strength in the upper limbs appears normal. In the lower limbs, hip flexion is 4 bilaterally, knee extension 5, ankle dorsiflexion 4+/3-, inversion 5/2, peronei 4/3. Deep tendon reflexes are 1+ at the biceps, trace at the brachioradialis, 0 at the knees, 0 ankles. No ataxia for [id number] testing. Tone is decreased in the legs. Gait deferred. There is no carotid bruit or murmur, peripheral pulses present. Results - Laboratory Findings CBC and BMP: 01/15/20 13:10 01/15/20 08:53 Abnormal Lab Findings: Abnormal Labs 01/13/20 01/13/20 01/13/20 13:45 13:45 23:37 RBC 3.06 L Hgb Hct MCV 112.2 H MCH 38.3 H Plt Count 125 L Neutrophils # 8.6 H Lymphocytes # 0.6 L Macrocytosis Marked A Sodium 127 L Potassium 3.2 L 3.1 L Chloride 88 L Carbon Dioxide 21 L BUN 19 H Creatinine 0.32 L Glucose 100 H Calcium Magnesium 1.5 L AST 42 H Alkaline Phosphatase 140 H Total Protein Albumin Urine Appearance Urine Protein Urine Ketones Ur Leukocyte Esterase Urine WBC Amorphous Sediment Urine Mucus 01/13/20 01/14/20 01/14/20 23:40 02:30 02:30 RBC 2.46 L Hgb 9.6 L D Hct 27.3 L MCV 111.2 H MCH 39.0 H Plt Count 101 L Neutrophils # Lymphocytes # 0.6 L Macrocytosis Marked A Sodium 127 L Potassium 3.0 L Chloride 95 L Carbon Dioxide BUN Creatinine 0.28 L Glucose Calcium 7.8 L Magnesium AST 43 H Alkaline Phosphatase 127 H Total Protein 5.3 L Albumin 2.8 L Urine Appearance Cloudy H Urine Protein Trace H Urine Ketones 2+ H Ur Leukocyte Esterase Large H Urine WBC 10 H Amorphous Sediment Rare H Urine Mucus Rare H 01/15/20 01/15/20 08:53 13:10 RBC 2.34 L Hgb 9.1 L Hct 26.3 L MCV 112.4 H MCH 39.1 H Plt Count 135 L Neutrophils # Lymphocytes # Macrocytosis Marked A Sodium 132 L Potassium Chloride Carbon Dioxide 19 L BUN 5 L Creatinine 0.25 L Glucose 109 H Calcium 8.3 L Magnesium AST 58 H Alkaline Phosphatase 136 H Total Protein 4.9 L Albumin 2.5 L Urine Appearance Urine Protein Urine Ketones Ur Leukocyte Esterase Urine WBC Amorphous Sediment Urine Mucus Assessment and Plan Assessment: * 39-year-old female with 10 month history of progressive asymmetric distal bilateral lower extremity weakness, left worse than right. Exact cause is uncertain. Rule out alcohol or nutritional related polyneuropathies. Rule out inflammatory polyneuropathy. * Chronic alcoholism. Plan: * We will check detailed blood tests to evaluate for possible metabolic causes of polyneuropathy. * Patient will need EMG and nerve conductions of bilateral lower and bilateral upper extremities to evaluate for the type, extent and severity of polyneuropathy. * Patient may need lumbar puncture to evaluate for proteins, which may suggest inflammatory polyneuropathy. * We will check MRI of the Cervical and lumbar spine, to rule out spinal stenosis. * Patient need to follow up with neurologist locally to follow-up on this test results and for EMG testing. * Strongly recommend abstinence from alcohol, as alkaline itself could be associated with significant toxic neuropathy.
--- NOTE | 2020-01-15 22:21 | PN ---
PROGRESS NOTE DATE OF SERVICE: 01/15/2020 This 39-year-old woman who was admitted with acute nausea, vomiting, possible acute gastritis and gastroenteritis also had significant neuropathy and gait dysfunction. The possibility of alcoholic peripheral neuropathy is being considered. Patient is being closely monitored at this time. The patient has also been cleared by Neurology. Past medical history reviewed. REVIEW OF SYSTEMS: CARDIOVASCULAR SYSTEM: No angina, palpitations. RESPIRATORY SYSTEM: As mentioned earlier. GI: As mentioned earlier. : No dysuria or retention. NERVOUS SYSTEM: As mentioned earlier. MEDICATIONS: Reviewed. They include: 1. Tylenol p.r.n. 2. [place] 5 mg q.6 p.r.n. 3. Rocephin 1 gram daily. 4. Heparin 5000 units subcutaneously b.i.d. 5. Ativan 1 mg daily. 6. Multivitamins. 7. Narcan. 8. Protonix. 9. Restoril. PHYSICAL EXAMINATION: Patient is alert and oriented x3. Pulse 97, blood pressure 99/58, respirations 16, temperature 98.2, pulse ox 97% on room air. HEENT: Conjunctivae normal. NECK: No jugular venous distention. CARDIOVASCULAR SYSTEM: S1, S2 muffled. RESPIRATORY SYSTEM: Breath sounds diminished at the bases. No rhonchi. No crackles. ABDOMEN: Soft, non-tender. LEGS: No edema. No swelling. NERVOUS SYSTEM: Diffuse weakness and numbness and paresthesia in both lower limbs. LABS: WBC 5.8, hemoglobin 9.1. Sodium 132. Albumin is 2.5. UA noted. ASSESSMENT: 1. Nausea, vomiting, possible acute gastritis and gastroenteritis, present on admission. 2. 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 3. Acute urinary tract infection, present on admission. 4. History of alcoholism with withdrawal symptoms as well as acute delirium tremens. 5. Thrombocytopenia. 6. Severe gait dysfunction secondary to above. 7. Increased mean corpuscular volume. 8. Hyponatremia. 9. Hyperkalemia. 10.Electrolyte imbalance. 11.Dehydration, present on admission. 12.Hypomagnesemia. 13.History of anemia. 14.History of cardiac murmur as a child. 15.History of sciatica. 16.History of degenerative joint disease. 17.History of nicotine dependence. 18.FULL CODE. RECOMMENDATIONS AND DISCUSSION: I recommend to continue current medications, continue with the monitoring, symptomatic treatment. Continue with CIWA protocol. Otherwise, continue with the antibiotics. The cultures are negative so far. Await neurology evaluation, PT/OT evaluation and possible ECF rehab. Guarded prognosis. Further recommendations to follow. MMBARBIL / THEODOREN: [id number] /
[2020-01-16] MEDS: HYDROcodone/APAP 5-325MG 1 EACH TAB PO PRN ×4 (00:52→19:04)
[2020-01-16] MEDS: PANTOPRAZOLE 40 MG TABLET PO SCH (07:15)
[2020-01-16] MEDS: THIAMINE 100 MG TAB PO SCH ×2 (07:15→16:47)
[2020-01-16] MEDS: ONDANSETRON 4 MG/2 ML VIAL IVP PRN ×3 (07:16→19:04)
[2020-01-16 07:38] LABS: Basophils % (A) 0 %; Eosinophils # (A) 0.2 k/uL (0-0.7); Eosinophils % (A) 3 %; HCT 25.2 % (34.0-46.0); HGB 8.4 gm/dL (11.4-16.0); Lymphocytes # (A) 1.4 k/uL (1.0-4.8); Lymphocytes % (A) 25 %; MCH 38.6 pg (25.0-35.0); MCHC 33.3 g/dL (31.0-37.0); MCV 115.8 fL (80.0-100.0); Macrocytosis Marked; Mean Platelet Volume 9.9; Monocytes # (A) 0.4 k/uL (0-1.0); Monocytes % (A) 6 %; Neutrophils # (A) 3.7 k/uL (1.3-7.7); Neutrophils % (A) 64 %; Platelet Count 203 k/uL (150-450); RBC 2.18 m/uL (3.80-5.40); RDW 13.9 % (11.5-15.5); WBC 5.7 k/uL (3.8-10.6)
[2020-01-16 08:06] LABS: ALT 16 U/L (4-34); AST 62 U/L (14-36); African American GFR (CKD) >90 (>60 ml/min/1.73 sqM); Albumin 2.4 g/dL (3.5-5.0); Alkaline Phosphatase 149 U/L (38-126); Anion Gap 5 mmol/L; Blood Urea Nitrogen 3 mg/dL (7-17); Calcium 8.1 mg/dL (8.4-10.2); Carbon Dioxide 24 mmol/L (22-30); Chloride 104 mmol/L (98-107); Glucose 80 mg/dL (74-99); Non-African American GFR(CKD) >90 (>60 ml/min/1.73 sqM); Potassium 3.2 mmol/L (3.5-5.1); Sodium 133 mmol/L (137-145); Total Bilirubin 0.3 mg/dL (0.2-1.3); Total Protein 4.7 g/dL (6.3-8.2)
[2020-01-16] MEDS: MULTIVITAMINS, THERA 1 EACH TAB PO SCH (09:07)
[2020-01-16] MEDS: HEPARIN SODIUM,PORCINE 5,000 UNIT/ML 1 ML VIAL SQ SCH ×2 (09:07→20:47)
[2020-01-16] MEDS: NICOTINE 14MG/24HR PATCH TRANSDERM SCH (09:07)
[2020-01-16] MEDS: SODIUM CHLORIDE 0.9% 1,000 ML IV SCH ×2 (09:07→22:17)
[2020-01-16 10:56] LABS: Folate, Serum 2.8 ng/mL
[2020-01-16 10:58] LABS: Protein, Total 4.2 g/dL (6.2-8.2)
[2020-01-16] MEDS ORDERED: Potassium Replacement Protocol 1 EACH MISC MISCELLANE PRN ×2 (12:25→18:05)
[2020-01-16 12:42] LABS: Hepatitis C IgG Antibody Non-Reactive (Non-Reactive)
[2020-01-16] MEDS: POTASSIUM CHLORIDE ER 20 MEQ TAB.ER PO SCH ×4 (12:42→20:47)
[2020-01-16 15:13] LABS: Hemoglobin A1C 4.2 % (4.0-6.0)
--- NOTE | 2020-01-16 15:54 | MR ---
EXAMINATION TYPE: MR cspine/lspine wo con DATE OF EXAM: 01/16/2020 COMPARISON: None HISTORY: low back pain, leg weakness TECHNIQUE: Multiplanar, multisequence imaging of the cervical and lumbar spine is performed without I V contrast. FINDINGS: CERVICAL SPINE: Cervical spine vertebral body heights are maintained. Bone marrow signal is overall within normal mancera its. Multilevel disc desiccation is seen. Straightening of usual cervical lordosis. Cervical spinal c ord signal is unremarkable. C2-C3: There is a left eccentric broad-based disc bulge without spinal canal stenosis or neural joey inal narrowing. C3-C4: There is a small broad-based disc bulge and mild facet arthropathy without spinal canal stenos is or neural foraminal narrowing. C4-C5: There is a broad-based disc bulge minimally narrowing the ventral subarachnoid space without s nic canal stenosis. Facet arthropathy is seen on the left mildly narrowing the left neural foramen. Right neural foramen is patent. C5-C6: There is a small central disc herniation without spinal canal stenosis or neural foraminal coy rowing. C6-C7: There is a broad-based disc bulge mildly narrowing the ventral subarachnoid space. Uncovertebr al hypertrophy is minimal minimally narrowing the bilateral neural foramen. Spinal canal is patent. C7-T1: Disc desiccation without spinal canal stenosis or foraminal narrowing. No focal disc herniatio n. LUMBAR SPINE: The conus medullaris is unremarkable terminating at L1-L2. Bone marrow signal is lower limits of norm al. The lumbar spine vertebral bodies maintain normal vertebral body heights and alignment. L1-L2: Disc desiccation without focal disc herniation. No spinal canal stenosis or neural foraminal n arrowing. L2-L3: Broad-based disc bulge without spinal canal stenosis or neural foraminal narrowing. L3-L4: There is a small left foraminal disc herniation seen on axial T2 nonfat sat image 13 and sagit reg image 4. This minimally narrows the left neural foramen. No right neural foraminal narrowing or s nic canal stenosis. L4-L5: There is a left foraminal disc herniation minimally narrowing the left neural foramen. Minimal facet arthropathy is also seen. No spinal canal stenosis or right neural foraminal narrowing. L5-S1: Mild disc desiccation without spinal canal stenosis or neural foraminal narrowing. No focal di sc herniation. IMPRESSION: 1. Small central disc herniation at C5-C6 without spinal canal stenosis or neural foraminal narrowing . 2. Small left foraminal disc herniations at L3-L4 and L4-L5 minimally narrowing the left neural joey en at these levels. No spinal canal stenosis. 3. Mild multilevel degenerative disc disease of the lumbar and cervical spine detail at each level ab ove. 4. Straightening of usual cervical lordosis that may be on the basis of muscular strain/spasm patient positioning.
[2020-01-16] MEDS ORDERED: SODIUM CHLORIDE 0.9% 500 ML 500 ML IV ONE ×2 (17:03)
[2020-01-16 17:59] LABS: African American GFR (CKD) >90 (>60 ml/min/1.73 sqM); Anion Gap 3 mmol/L; Blood Urea Nitrogen 3 mg/dL (7-17); Calcium 7.9 mg/dL (8.4-10.2); Carbon Dioxide 25 mmol/L (22-30); Chloride 104 mmol/L (98-107); Glucose 94 mg/dL (74-99); Non-African American GFR(CKD) >90 (>60 ml/min/1.73 sqM); Potassium 3.4 mmol/L (3.5-5.1); Sodium 132 mmol/L (137-145)
--- NOTE | 2020-01-16 19:48 | PN ---
PROGRESS NOTE DATE OF SERVICE: 01/16/2020 This 39-year-old woman who was admitted with nausea, vomiting, and acute gastritis and gastroenteritis also had history of significant alcohol also. The patient also had significant weakness. Neurology recommended cervical lumbar spine MRI which showed a small central herniation C5-8 and other foraminal disk herniations and multiple findings were noted. No chest pain. No palpitations. No fever. PHYSICAL EXAMINATION: Alert and oriented x3. The pulse is 92, blood pressure 82/40, respiration 16, temperature 98.8, pulse ox 98% on room air. HEENT: Conjunctivae normal. Oral mucosa moist. NECK: No jugular venous distention. No lymph node enlargement. CARDIOVASCULAR: S1, S2. RESPIRATORY: Diminished breath sounds at the bases. A few scattered rhonchi. ABDOMEN: Soft, nontender. LEGS: No edema, no swelling. NERVOUS SYSTEM: Diffusely weak. LABS: Hemoglobin 8.4, marked macrocytosis, platelets 202. Sodium 133, potassium 3.2, AST 62, total protein is 4.7, albumin is 2.4, and vitamin B12 is negative. Hepatitis C is nonreactive. ASSESSMENT: 1. Nausea, vomiting, possible acute gastritis, gastroenteritis, present on admission. 2. 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 3. Acute urinary tract infection present on admission. 4. History of alcohol withdrawal with symptoms of acute delirium tremens. 5. Change in mental status, metabolic encephalopathy, multifactorial. 6. Thrombocytopenia. 7. Severe gait dysfunction secondary to above. 8. Increased MCV. 9. Hyponatremia. 10.Hypokalemia. 11.Electrolyte imbalance. 12.Dehydration, present on admission. 13.Hypomagnesemia. 14.History of anemia. 15.History of cardiac murmur as a child. 16.History of sciatica. 17.History of degenerative joint disease. 18.History of nicotine dependence. 19.Hyponatremia. 20.Hypokalemia. 21.FULL CODE. RECOMMENDATIONS AND DISCUSSION: In this 39-year-old woman who presented with multiple complex medical issues, we will monitor the patient closely, continue the current management and symptomatic treatment. Otherwise, at this time I recommend supplement potassium, continue to monitor. Otherwise, PT/OT evaluation, possible ECF rehab, continue to follow with Neurology. MRI showed some DJD. We will continue to monitor. Further recommendations to follow. MMODL / IJN: [id number] /
[2020-01-17] MEDS: HYDROcodone/APAP 5-325MG 1 EACH TAB PO PRN ×4 (01:09→20:17)
[2020-01-17] MEDS: ONDANSETRON 4 MG/2 ML VIAL IVP PRN ×5 (01:17→21:53)
[2020-01-17] MEDS ORDERED: SODIUM CHLORIDE 0.9% 500 ML 500 ML IV ONE (01:51)
[2020-01-17] MEDS: SODIUM CHLORIDE 0.9% 1,000 ML IV SCH ×3 (02:00→23:04)
[2020-01-17] MEDS: THIAMINE 100 MG TAB PO SCH ×2 (07:01→17:02)
[2020-01-17] MEDS: PANTOPRAZOLE 40 MG TABLET PO SCH (07:01)
[2020-01-17 07:31] LABS: HCT 22.2 % (34.0-46.0); HGB 7.4 gm/dL (11.4-16.0); MCH 39.1 pg (25.0-35.0); MCHC 33.5 g/dL (31.0-37.0); MCV 116.9 fL (80.0-100.0); Macrocytosis Marked; Mean Platelet Volume 9.3; Platelet Count 307 k/uL (150-450); WBC 6.9 k/uL (3.8-10.6)
[2020-01-17 08:14] LABS: ALT 28 U/L (4-34); AST 121 U/L (14-36); African American GFR (CKD) >90 (>60 ml/min/1.73 sqM); Alkaline Phosphatase 192 U/L (38-126); Anion Gap 3 mmol/L; Blood Urea Nitrogen 4 mg/dL (7-17); Calcium 7.5 mg/dL (8.4-10.2); Carbon Dioxide 24 mmol/L (22-30); Chloride 107 mmol/L (98-107); Glucose 98 mg/dL (74-99); Magnesium 1.2 mg/dL (1.6-2.3); Non-African American GFR(CKD) >90 (>60 ml/min/1.73 sqM); Potassium 3.9 mmol/L (3.5-5.1); Sodium 134 mmol/L (137-145); Total Bilirubin 0.1 mg/dL (0.2-1.3)
[2020-01-17] MEDS: NICOTINE 14MG/24HR PATCH TRANSDERM SCH (08:14)
[2020-01-17] MEDS: MULTIVITAMINS, THERA 1 EACH TAB PO SCH (08:14)
[2020-01-17] MEDS: HEPARIN SODIUM,PORCINE 5,000 UNIT/ML 1 ML VIAL SQ SCH ×2 (08:14→20:18)
[2020-01-17 10:42] LABS: Band Neutrophils % 1 %; Basophils # (M) 0.07 k/uL (0-0.2); Eosinophils # (M) 0.14 k/uL (0-0.7); Lymphocytes # (M) 2.07 k/uL (1.0-4.8); Metamyelocytes # (M) 0.07 k/uL (0); Metamyelocytes % 1 %; Monocytes # (M) 0.35 k/uL (0-1.0); Myelocytes # (M) 0.14 k/uL (0); Myelocytes % 2 %; Neutrophils % (M) 61 %; Nucleated Red Blood Cells 0 /100 WBC (0-0); Total Cells Counted 200
[2020-01-17] MEDS ORDERED: COSYNTROPIN 0.25 MG VIAL IVP ONE (13:00)
[2020-01-17] MEDS ORDERED: Potassium Replacement Protocol 1 EACH MISC MISCELLANE PRN (16:36)
[2020-01-17] MEDS ORDERED: Magnesium Replacement Protocol 1 EACH MISC MISCELLANE PRN (16:36)
[2020-01-17] MEDS ORDERED: POTASSIUM CHLORIDE ER 20 MEQ TAB.ER PO ONE (17:00)
[2020-01-17] MEDS: MAGNESIUM SULFATE-D5W PMX 1 GM in DEXTROSE/WATER 1 100ML.BAG IVPB SCH ×3 (17:03→20:17)
--- NOTE | 2020-01-17 17:48 | PN ---
PROGRESS NOTE DATE OF SERVICE: 01/17/2020 This 39-year-old woman was admitted with nausea, vomiting, possible acute gastritis also had multiple other medical problems including gait dysfunction, peripheral neuropathy, also. The patient had a cervical lumbar spine MRI. Neurology is following the patient closely. PT/OT evaluating the patient closely with possible ECF rehab plans. PAST MEDICAL HISTORY: Past medical history reviewed. PHYSICAL EXAM: Patient is alert, oriented x3. Pulse is at 93, blood pressure 90/57, respiratory rate 14, temperature 99.8, pulse ox 98% on room air. HEENT: Conjunctivae normal. NECK: No JVD. CARDIOVASCULAR: S1, S2 normal. RESPIRATIONS: Breath sounds diminished in the bases, a few scattered rhonchi. No crackles. ABDOMEN: Soft, nontender. LEGS are no edema. No swelling. CENTRAL NERVOUS SYSTEM: Diffusely weak. LABS: WBC 6.9, hemoglobin 7.4, otherwise sodium 137, potassium 3.9 and calcium is 7.5 and magnesium is 1.2. AST is 121, alkaline phosphatase is 192, total protein is 4. Cortisol is 5. ASSESSMENT: 1. Nausea and vomiting, possible acute gastritis and gastroenteritis present on admission. 2. 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 3. Acute urinary tract infection present on admission. 4. Low cortisol level, rule out adrenocortical insufficiency. 5. Hypomagnesemia. 6. History of alcohol withdrawal and acute delirium tremens. 7. Change in mental status, acute metabolic encephalopathy, multifactorial. 8. Thrombocytopenia. 9. Severe gait dysfunction secondary to above. 10.Increased MCV. 11.Hyponatremia. 12.Hypokalemia. 13.Electrolytes imbalance. 14.Dehydration present on admission. 15.History of anemia. 16.History of cardiac murmur as a child, history of sciatica, history of degenerative joint disease, history of nicotine dependence. 17.Hyponatremia. 18.Hypokalemia. 19.FULL CODE. RECOMMENDATIONS AND DISCUSSION: Recommend to continue current medications, monitoring, symptomatic treatment. Supplement magnesium. Otherwise, I would also recommend an ACTH stimulation test to rule out the possibility of adrenocortical insufficiency. PT/OT evaluation. ECF rehab. This patient has multiple complex medical issues which are life-threatening as detailed above. The patient needs more than 2 nights hospital stay for diagnosis and management and evaluation of the multiple complex medical issues as listed above. I would also strongly recommend the patient for rehab because the patient is high risk of falls and multiple other complications as well. Please call with any questions. MMODL / IJN: [id number] /
[2020-01-17 19:04] VITALS: RESP 16
[2020-01-18] MEDS: HYDROcodone/APAP 5-325MG 1 EACH TAB PO PRN ×3 (02:00→13:57)
[2020-01-18] MEDS: ONDANSETRON 4 MG/2 ML VIAL IVP PRN ×3 (02:00→13:57)
[2020-01-18] MEDS: SODIUM CHLORIDE 0.9% 1,000 ML IV SCH ×2 (03:35→11:45)
[2020-01-18] MEDS: HEPARIN SODIUM,PORCINE 5,000 UNIT/ML 1 ML VIAL SQ SCH (07:09)
[2020-01-18] MEDS: PANTOPRAZOLE 40 MG TABLET PO SCH (07:09)
[2020-01-18] MEDS: THIAMINE 100 MG TAB PO SCH (07:09)
[2020-01-18] MEDS: NICOTINE 14MG/24HR PATCH TRANSDERM SCH (07:10)
[2020-01-18 08:18] LABS: HCT 24.4 % (34.0-46.0); HGB 7.9 gm/dL (11.4-16.0); MCH 38.7 pg (25.0-35.0); MCHC 32.6 g/dL (31.0-37.0); MCV 118.8 fL (80.0-100.0); Macrocytosis Marked; Mean Platelet Volume 9.4; Platelet Count 408 k/uL (150-450); RBC 2.05 m/uL (3.80-5.40); RDW 14.7 % (11.5-15.5)
[2020-01-18 10:11] VITALS: BP 101/69; PULSE 92; TEMP 99
[2020-01-18 10:32] LABS: Band Neutrophils % 2 %; Eosinophils # (M) 0.16 k/uL (0-0.7); Lymphocytes # (M) 2.05 k/uL (1.0-4.8); Metamyelocytes # (M) 0.25 k/uL (0); Metamyelocytes % 3 %; Monocytes # (M) 1.31 k/uL (0-1.0); Myelocytes # (M) 0.16 k/uL (0); Myelocytes % 2 %; Neutrophils % (M) 52 %; Nucleated Red Blood Cells 1 /100 WBC (0-0); Total Cells Counted 200; WBC 8.2 k/uL (3.8-10.6)
[2020-01-18 10:35] LABS: Polychromasia Present
[2020-01-18 10:36] LABS: Poikilocytosis (M) Present
[2020-01-18 10:41] LABS: African American GFR (CKD) >90 (>60 ml/min/1.73 sqM); Anion Gap 5 mmol/L; Blood Urea Nitrogen 5 mg/dL (7-17); Calcium 7.6 mg/dL (8.4-10.2); Carbon Dioxide 21 mmol/L (22-30); Chloride 109 mmol/L (98-107); Glucose 104 mg/dL (74-99); Magnesium 1.8 mg/dL (1.6-2.3); Non-African American GFR(CKD) >90 (>60 ml/min/1.73 sqM); Sodium 135 mmol/L (137-145)
[2020-01-18 10:55] LABS: Potassium 3.9 mmol/L (3.5-5.1)
[2020-01-18] MEDS: MULTIVITAMINS, THERA 1 EACH TAB PO SCH (11:44)
[2020-01-18 14:04] LABS: Albumin 2.29 g/dL (3.80-4.90)
--- NOTE | 2020-01-18 23:35 | DS ---
DISCHARGE SUMMARY DATE OF SERVICE: 01/18/2020 FINAL DIAGNOSES: 1. Nausea, vomiting, possible acute gastritis and gastroenteritis, present on admission. 2. 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 3. Acute urinary tract infection present on admission. 4. Low cortisol levels, rule out adrenocortical insufficiency. 5. Hypomagnesemia. 6. History of ETOH withdrawal and acute delirium tremens. 7. Change in mental status acute metabolic encephalopathy, multifactorial. 8. Thrombocytopenia. 9. Severe gait dysfunction secondary to above. 10.Increased MCV. 11.Hyponatremia. 12.Hypokalemia. 13.Elevated imbalance. 14.Dehydration present on admission. 15.History of anemia. 16.History of cardiac murmurs as a child. 17.History of sciatica. 18.History of degenerative joint disease. 19.History of nicotine dependence. 20.Hyponatremia. 21.Hypokalemia. 22.FULL CODE. DISCHARGE DISPOSITION: The patient will be discharged in stable condition with guarded prognosis. Total time taken 35 minutes. 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 Treating initially with neurology. Patient had cervical MRI did not show acute abnormality. Otherwise, patient improved significantly. The Possibility of PT/OT was further suggested but at this time the patient would like to go home because of the insurance reasons. On exam, vitals signs stable. Cardiovascular: S1, S2. Abdomen soft. Nervous system: No focal deficits. Otherwise the cortisol level was stimulated appropriately to ACTH. I would recommend to continue the current medication and follow up in the outpatient setting. On exam vital signs stable. Cardiovascular: S1, S2. Abdomen soft. Central nervous system: No focal deficits. DISCHARGE ADVICE AND MEDICATIONS: 1. Diet is cardiac diet. 2. Followup with Dr. Aldridge. 3. Follow up with Dr. Molina in two weeks. 4. Follow up with Neurology as recommended. MEDICATIONS: 1. Melatonin 1 p.o. q.h.s. 2. Multivitamins 1. 3. Folic acid 1 mg. 4. Thiamine 100 mg p.o. 5. No ETOH. MMODL / IJN: [id number] /
== END 2020-01-18 15:18 | disposition home health service (06) | DRG 391 ==
LOC: EC 13:33 → 4SSUR 15:54
PROVIDERS: ADMIT Hospitalist; ATTEND Hospitalist
DX: K29.00 Acute gastritis without bleeding (principal); G93.41 Metabolic encephalopathy; E87.1 Hypo-osmolality and hyponatremia; N39.0 Urinary tract infection, site not specified; R64 Cachexia; E27.40 Unspecified adrenocortical insufficiency; K52.9 Noninfective gastroenteritis and colitis, unspecified; G62.1 Alcoholic polyneuropathy; D69.6 Thrombocytopenia, unspecified; E83.42 Hypomagnesemia; E86.0 Dehydration; E87.6 Hypokalemia; F10.20 Alcohol dependence, uncomplicated; F17.200 Nicotine dependence, unspecified, uncomplicated; M19.90 Unspecified osteoarthritis, unspecified site; Z83.2 Family history of diseases of the blood and blood-forming organs and certain disorders involving the immune mechanism
CPT/HCPCS: 36415; 70450; 71046; 72141; 72148; 80048; 80053; 81001; 82024; 82533; 82607; 82746; 83036; 83605; 83735; 83921; 84132; 84165; 84207; 84484; 85025; 85610; 85730; 86038; 86334; 86618; 86803; 93005; 96361; 96365; 96366; 96368; 96375; 99291

== ENCOUNTER 2020-02-02 15:26 | Inpatient (IN) | payer BC, OTHER ==
[2020-02-02] MEDS ORDERED: SODIUM CHLORIDE 0.9% 1,000 ML IV STA (15:50)
[2020-02-02] MEDS ORDERED: ACETAMINOPHEN TAB 500 MG TAB PO STA (15:51)
--- NOTE | 2020-02-02 15:58 | ED ---
General Adult HPI - General Chief complaint: Upper Respiratory Infection Stated complaint: SOB, Cough Time Seen by Provider: 02/02/20 15:33 Source: patient Mode of arrival: ambulatory Limitations: no limitations - History of Present Illness Initial comments: Patient is 39-year-old female with history of alcohol abuse presenting to emergency Department with a chief complaint of fever cough or shortness of breath. Patient states symptoms began about one week ago with a fever. States fevers is refractory to Tylenol. States most recent dose of Tylenol was at 0500 today. She reports a productive cough with yellow/green sputum production. Patient does report shortness of breath with occasional wheezing. She also reports an intermittent sore throat especially after coughing fits. Patient also reports nausea with multiple episodes of nonbilious, nonbloody vomiting. She reports nonbloody diarrhea as well. States she has not been able to keep any solids down for the last few days. Although, she is able to tolerate most liquids. She reports generalized weakness and fatigue over the last few days after the onset of nausea vomiting diarrhea. Patient is a lifelong daily smoker. Denies history of asthma or COPD. denies known Covid exposure. Denies recent alcohol intake or tremors. - Related Data Previous Rx's Medication Instructions Recorded Folic Acid 1 mg PO DAILY #30 tablet 01/18/20 Multivitamins, Thera [Multivitamin] 1 tab PO DAILY #30 tablet 01/18/20 Thiamine [Vitamin B-1] 100 mg PO DAILY #30 tablet 01/18/20 Allergies Allergy/AdvReac Type Severity Reaction Status Date / Time No Known Allergies Allergy Verified 02/02/20 16:54 Review of Systems ROS Statement: Those systems with pertinent positive or pertinent negative responses have been documented in the HPI. ROS Other: All systems not noted in ROS Statement are negative. Past Medical History Past Medical History: No Reported History Additional Past Medical History / Comment(s): freq nausea, elevated enzymes, bleeding with urination, sciatica, anemia, heart murmur as a child, hard to move arms and legs (1.5 years ago) History of Any Multi-Drug Resistant Organisms: None Reported Past Surgical History: No Surgical Hx Reported Past Anesthesia/Blood Transfusion Reactions: No Reported Reaction Additional Past Anesthesia/Blood Transfusion Reaction / Comment(s): never has had general anesthesia,has had epidural in past with labor. Past Psychological History: No Psychological Hx Reported Smoking Status: Current every day smoker Past Alcohol Use History: Abuse, Daily Past Drug Use History: None Reported - Past Family History Mother Additional Family Medical History / Comment(s): MTHR bleeding disorder Sister(s) Additional Family Medical History / Comment(s): "sticky platelet disorder." General Exam Limitations: no limitations General appearance: alert, in no apparent distress Head exam: Present: atraumatic, normocephalic, normal inspection Eye exam: Present: normal appearance, PERRL, EOMI Pupils: Present: normal accommodation ENT exam: Present: normal exam, normal oropharynx, mucous membranes moist, TM's normal bilaterally, normal external ear exam Neck exam: Present: normal inspection, full ROM. Absent: lymphadenopathy Respiratory exam: Present: decreased breath sounds. Absent: wheezes, rales, rhonchi, stridor Cardiovascular Exam: Present: normal rhythm, tachycardia, normal heart sounds GI/Abdominal exam: Present: soft. Absent: distended, guarding Extremities exam: Present: normal inspection, full ROM Back exam: Present: normal inspection, full ROM Neurological exam: Present: alert, oriented X3 Psychiatric exam: Present: normal affect, normal mood Skin exam: Present: warm, dry, intact, normal color Course Vital Signs 02/02/20 02/02/20 02/02/20 15:29 16:33 17:00 Temperature 100.9 F H Pulse Rate 128 H 108 H 112 H Respiratory 18 18 18 Rate Blood Pressure 106/76 115/74 O2 Sat by Pulse 97 98 96 Oximetry EKG Findings - EKG Comments: EKG Findings:: . Sinus tachycardia. Ventricular rate 110, NM and 26, QRS 82, QTC 473. Medical Decision Making - Medical Decision Making Patient is a 39-year-old female with history of alcohol abuse presenting to emergency Department with a chief complaint of fever cough and shortness of breath. On physical examination no wheezing rhonchi or stridor noted. Chest x- ray reveals a stable, unchanged right hemidiaphragm. Right infrahilar atelectasis also appreciated. CBC reveals hemoconcentration with leukocytosis. Lactic acid of 2.3. I suspect is secondary to fluid loss from nausea vomiting and diarrhea. CMP reveals hypokalemia, hypomagnesemia and hyponatremia. Patient was admitted in the ED last time with similar electrolyte imbalances secondary to alcohol abuse. EKG shows sinus tachycardia. Patient was given fluids, electrolyte replacement, antipyretics and Protonix. Blood culture pending. UA and hCG pending. Influenza pending. Patient will be admitted for further medical management. case discussed with Dr. Andrew. Admitting physician is . - Lab Data Result diagrams: 02/02/20 16:00 02/02/20 16:00 Lab Results 02/02/20 02/02/20 02/02/20 Range/Units 16:00 16:00 16:00 WBC 13.0 H (3.8-10.6) k/uL RBC 2.96 L (3.80-5.40) m/uL Hgb 10.3 L (11.4-16.0) gm/dL Hct 31.7 L (34.0-46.0) % MCV 106.8 H D (80.0-100.0) fL MCH 34.9 (25.0-35.0) pg MCHC 32.6 (31.0-37.0) g/dL RDW 15.3 (11.5-15.5) % Plt Count 209 (150-450) k/uL Neutrophils % 85 % Lymphocytes % 9 % Monocytes % 4 % Eosinophils % 1 % Basophils % 0 % Neutrophils # 11.0 H (1.3-7.7) k/uL Lymphocytes # 1.1 (1.0-4.8) k/uL Monocytes # 0.5 (0-1.0) k/uL Eosinophils # 0.2 (0-0.7) k/uL Basophils # 0.0 (0-0.2) k/uL Macrocytosis Moderate PT 11.0 (9.0-12.0) sec INR 1.1 (<1.2) APTT 26.4 (22.0-30.0) sec Sodium 133 L (137-145) mmol/L Potassium 2.7 L* (3.5-5.1) mmol/L Chloride 96 L (98-107) mmol/L Carbon Dioxide 31 H (22-30) mmol/L Anion Gap 6 mmol/L BUN 4 L (7-17) mg/dL Creatinine 0.27 L (0.52-1.04) mg/dL Est GFR (CKD-EPI)AfAm >90 (>60 ml/min/1.73 sqM) Est GFR (CKD-EPI)NonAf >90 (>60 ml/min/1.73 sqM) Glucose 107 H (74-99) mg/dL Plasma Lactic Acid Luis Enrique (0.7-2.0) mmol/L Calcium 7.4 L (8.4-10.2) mg/dL Magnesium (1.6-2.3) mg/dL Total Bilirubin 1.9 H (0.2-1.3) mg/dL AST 43 H (14-36) U/L ALT 14 (4-34) U/L Alkaline Phosphatase 216 H (38-126) U/L Troponin I (0.000-0.034) ng/mL Total Protein 5.3 L (6.3-8.2) g/dL Albumin 2.6 L (3.5-5.0) g/dL 02/02/20 02/02/20 02/02/20 Range/Units 16:00 16:00 16:00 WBC (3.8-10.6) k/uL RBC (3.80-5.40) m/uL Hgb (11.4-16.0) gm/dL Hct (34.0-46.0) % MCV (80.0-100.0) fL MCH (25.0-35.0) pg MCHC (31.0-37.0) g/dL RDW (11.5-15.5) % Plt Count (150-450) k/uL Neutrophils % % Lymphocytes % % Monocytes % % Eosinophils % % Basophils % % Neutrophils # (1.3-7.7) k/uL Lymphocytes # (1.0-4.8) k/uL Monocytes # (0-1.0) k/uL Eosinophils # (0-0.7) k/uL Basophils # (0-0.2) k/uL Macrocytosis PT (9.0-12.0) sec INR (<1.2) APTT (22.0-30.0) sec Sodium (137-145) mmol/L Potassium (3.5-5.1) mmol/L Chloride (98-107) mmol/L Carbon Dioxide (22-30) mmol/L Anion Gap mmol/L BUN (7-17) mg/dL Creatinine (0.52-1.04) mg/dL Est GFR (CKD-EPI)AfAm (>60 ml/min/1.73 sqM) Est GFR (CKD-EPI)NonAf (>60 ml/min/1.73 sqM) Glucose (74-99) mg/dL Plasma Lactic Acid Luis Enrique 2.3 H* (0.7-2.0) mmol/L Calcium (8.4-10.2) mg/dL Magnesium 1.2 L (1.6-2.3) mg/dL Total Bilirubin (0.2-1.3) mg/dL AST (14-36) U/L ALT (4-34) U/L Alkaline Phosphatase (38-126) U/L Troponin I <0.012 (0.000-0.034) ng/mL Total Protein (6.3-8.2) g/dL Albumin (3.5-5.0) g/dL Disposition Clinical Impression: Hypokalemia, Hypomagnesemia, Hyponatremia, Dehydration Disposition: ADMITTED IP TO THIS HOSP Condition: Fair Additional Instructions: Patient will be admitted Is patient prescribed a controlled substance at d/c from ED?: No Referrals: None,Stated [Primary Care Provider] - 1-2 days Time of Disposition: 17:47
[2020-02-02 16:20] LABS: Basophils % (A) 0 %; Eosinophils # (A) 0.2 k/uL (0-0.7); Eosinophils % (A) 1 %; HCT 31.7 % (34.0-46.0); HGB 10.3 gm/dL (11.4-16.0); Lymphocytes # (A) 1.1 k/uL (1.0-4.8); Lymphocytes % (A) 9 %; MCH 34.9 pg (25.0-35.0); MCHC 32.6 g/dL (31.0-37.0); Macrocytosis Moderate; Mean Platelet Volume 8.8; Monocytes # (A) 0.5 k/uL (0-1.0); Monocytes % (A) 4 %; Neutrophils % (A) 85 %; Platelet Count 209 k/uL (150-450); RBC 2.96 m/uL (3.80-5.40); RDW 15.3 % (11.5-15.5)
[2020-02-02 16:26] LABS: MCV 106.8 fL (80.0-100.0)
[2020-02-02 16:27] LABS: ALT 14 U/L (4-34); AST 43 U/L (14-36); African American GFR (CKD) >90 (>60 ml/min/1.73 sqM); Albumin 2.6 g/dL (3.5-5.0); Alkaline Phosphatase 216 U/L (38-126); Anion Gap 6 mmol/L; Blood Urea Nitrogen 4 mg/dL (7-17); Calcium 7.4 mg/dL (8.4-10.2); Carbon Dioxide 31 mmol/L (22-30); Chloride 96 mmol/L (98-107); Glucose 107 mg/dL (74-99); Non-African American GFR(CKD) >90 (>60 ml/min/1.73 sqM); Sodium 133 mmol/L (137-145); Total Bilirubin 1.9 mg/dL (0.2-1.3); Total Protein 5.3 g/dL (6.3-8.2)
[2020-02-02] MEDS ORDERED: ONDANSETRON 4 MG/2 ML VIAL IVP STA (16:28)
[2020-02-02 16:32] LABS: INR 1.1 (<1.2); Partial Thromboplastin Time 26.4 sec (22.0-30.0)
--- NOTE | 2020-02-02 16:42 | XR ---
EXAMINATION TYPE: XR chest 1V portable DATE OF EXAM: 02/02/2020 COMPARISON: 01/13/2020 HISTORY: Difficulty breathing TECHNIQUE: Single frontal view of the chest is obtained. FINDINGS: Minimal linear right infrahilar atelectasis is seen. There is no focal air space opacity, pleural effusion, or pneumothorax seen. Similar right hemidiaphragm elevation to the prior of 01/13/20 20 The cardiac silhouette size is within normal limits. The osseous structures are intact. IMPRESSION: Minimal linear right infrahilar atelectasis. Stable right hemidiaphragm elevation.
[2020-02-02 17:00] LABS: Potassium 2.7 mmol/L (3.5-5.1)
[2020-02-02] MEDS ORDERED: POTASSIUM CHLORIDE 20 MEQ in WATER FOR INJECTION 1 100ML.BAG IVPB STA (17:10)
[2020-02-02] MEDS ORDERED: POTASSIUM CHLORIDE ER 20 MEQ TAB.ER PO STA (17:10)
[2020-02-02] MEDS ORDERED: MORPHINE SULFATE 4 MG/ML SYRINGE IV PRN (17:36)
[2020-02-02] MEDS ORDERED: ACETAMINOPHEN TAB 325 MG TAB PO PRN (17:36)
[2020-02-02] MEDS ORDERED: NALOXONE 0.4 MG/ML 1 ML VIAL IV PRN (17:36)
[2020-02-02] MEDS ORDERED: PANTOPRAZOLE 40 MG/10 ML VIAL IVP STA (17:43)
[2020-02-02] MEDS ORDERED: cefTRIAXone IN SWFI 1,000 MG/10 ML SYRINGE IVP STA (17:57)
[2020-02-02] MEDS: MAGNESIUM SULFATE-D5W PMX 1 GM in DEXTROSE/WATER 1 100ML.BAG IVPB SCH ×2 (18:02→20:32)
[2020-02-02 19:06] LABS: Amorphous Sediment,Urine Rare /hpf; Appearance,Urine Cloudy (Clear); Bacteria,Urine Rare /hpf; Bilirubin,Urine Negative (Negative); Blood,Urine Negative (Negative); Color,Urine Yellow; Glucose,Urine (UA) Negative (Negative); Ketones,Urine Negative (Negative); Leukocyte Esterase,Urine Negative (Negative); Mucus,Urine Rare /hpf; Nitrite,Urine Negative (Negative); Protein,Urine Negative (Negative); Specific Gravity,Urine 1.004 (1.001-1.035); Squamous Epithelial Cell,Urine 8 /hpf (0-4); WBC,Urine 1 /hpf (0-5)
[2020-02-02] MEDS ORDERED: Potassium Replacement Protocol 1 EACH MISC MISCELLANE PRN (20:22)
[2020-02-02] MEDS: SODIUM CHLORIDE 0.9% 1,000 ML IV SCH (20:33)
[2020-02-02] MEDS ORDERED: Magnesium Replacement Protocol 1 EACH MISC MISCELLANE PRN (21:36)
[2020-02-02] MEDS: ONDANSETRON 4 MG/2 ML VIAL IVP PRN (23:12)
[2020-02-02] MEDS: HYDROcodone/APAP 5-325MG 1 EACH TAB PO PRN (23:12)
[2020-02-02] MEDS: ALPRAZolam 0.25 MG TAB PO PRN (23:12)
[2020-02-03] MEDS: HYDROcodone/APAP 5-325MG 1 EACH TAB PO PRN ×3 (05:24→16:23)
[2020-02-03] MEDS: ALPRAZolam 0.25 MG TAB PO PRN ×2 (05:29→11:53)
[2020-02-03 06:59] LABS: Basophils % (A) 0 %; Eosinophils # (A) 0.4 k/uL (0-0.7); Eosinophils % (A) 4 %; HCT 27.7 % (34.0-46.0); Hypochromasia Slight; Lymphocytes # (A) 1.3 k/uL (1.0-4.8); Lymphocytes % (A) 14 %; MCH 33.9 pg (25.0-35.0); Macrocytosis Marked; Mean Platelet Volume 9.3; Monocytes # (A) 0.4 k/uL (0-1.0); Monocytes % (A) 4 %; Neutrophils # (A) 7.2 k/uL (1.3-7.7); Neutrophils % (A) 76 %; Platelet Count 178 k/uL (150-450); RBC 2.54 m/uL (3.80-5.40); RDW 15.2 % (11.5-15.5); WBC 9.4 k/uL (3.8-10.6)
[2020-02-03 07:22] LABS: ALT 15 U/L (4-34); AST 70 U/L (14-36); African American GFR (CKD) >90 (>60 ml/min/1.73 sqM); Albumin 1.9 g/dL (3.5-5.0); Alkaline Phosphatase 172 U/L (38-126); Anion Gap 2 mmol/L; Blood Urea Nitrogen <2 mg/dL (7-17); Carbon Dioxide 27 mmol/L (22-30); Chloride 106 mmol/L (98-107); Glucose 83 mg/dL (74-99); Magnesium 1.9 mg/dL (1.6-2.3); Non-African American GFR(CKD) >90 (>60 ml/min/1.73 sqM); Potassium 2.9 mmol/L (3.5-5.1); Sodium 135 mmol/L (137-145); Total Bilirubin 0.8 mg/dL (0.2-1.3); Total Protein 4.2 g/dL (6.3-8.2)
[2020-02-03 07:32] LABS: MCV 109.3 fL (80.0-100.0)
[2020-02-03 07:46] LABS: Calcium 6.4 mg/dL (8.4-10.2)
[2020-02-03] MEDS: POTASSIUM CHLORIDE ER 20 MEQ TAB.ER PO SCH ×3 (08:10→11:53)
[2020-02-03] MEDS: SODIUM CHLORIDE 0.9% 1,000 ML IV SCH (08:10)
[2020-02-03] MEDS: ONDANSETRON 4 MG/2 ML VIAL IVP PRN (08:10)
[2020-02-03 08:59] LABS: Toxic Granulation Present
[2020-02-03] MEDS ORDERED: POTASSIUM CHLORIDE ER 20 MEQ TAB.ER PO STA (11:34)
[2020-02-03] MEDS ORDERED: PANTOPRAZOLE 40 MG/10 ML VIAL IVP SCH (11:45)
[2020-02-03 12:57] LABS: C Reactive Protein 202.1 mg/L (<10.0)
--- NOTE | 2020-02-03 14:25 | P.HPIM ---
History of Present Illness 81-year-old the female came in with complaints of fever chills short of breath patient was also having nausea vomiting epigastric abdominal discomfort and pain. Patient was having some shortness of breath chest x-ray did not show any significant infiltrate or groundglass opacities or any findings of atypical pneumonia patient is being ruled out for a with 19. Patient was having generalized weakness patient has chronic weakness in both legs which was extensively evaluated in the past with an MRIN the neurologist at that time r ecommended B12 and forward supplementation along with follow-up with neurology as an outpatientA she will require an outpatient EMG.set up at home care for her as an outpatient patient had a I department this including hyponatremia hypokalemia and hypomagnesemia these were replaced and the patient is hemodialysis is stable and will be discharged today. Review of Systems REVIEW OF SYSTEMS: CONSTITUTIONAL: as mentioned in HPI HEENT: No recent visual problems or hearing problems. Denied any sore throat. CARDIOVASCULAR: No chest pain, orthopnea, PND, no palpitations, no syncope. PULMONARY: as mentioned in HPI. GASTROINTESTINAL: mentioned in HPI NEUROLOGICAL: No headaches, no weakness, no numbness. HEMATOLOGICAL: Denies any bleeding or petechiae. GENITOURINARY: Denies any burning micturition, frequency, or urgency. MUSCULOSKELETAL/RHEUMATOLOGICAL: Denies any joint pain, swelling, or any muscle pain. ENDOCRINE: Denies any polyuria or polydipsia. The rest of the 14-point review of systems is negative. Past Medical History Past Medical History: No Reported History Additional Past Medical History / Comment(s): freq nausea, elevated enzymes, bleeding with urination, sciatica, anemia, heart murmur as a child, hard to move arms and legs (1.5 years ago) History of Any Multi-Drug Resistant Organisms: None Reported Past Surgical History: No Surgical Hx Reported Past Anesthesia/Blood Transfusion Reactions: No Reported Reaction Additional Past Anesthesia/Blood Transfusion Reaction / Comment(s): never has had general anesthesia,has had epidural in past with labor. Past Psychological History: Anxiety Smoking Status: Current every day smoker Past Alcohol Use History: Abuse, Daily Additional Past Alcohol Use History / Comment(s): started smoking at age 13, smokes a hakf a pack a day; states drinks daily but had reduced since last hospital visit. Past Drug Use History: None Reported - Past Family History Mother Additional Family Medical History / Comment(s): MTHR bleeding disorder, fibromyalgia, athritis Sister(s) Additional Family Medical History / Comment(s): "sticky platelet disorder" Medications and Allergies Home Medications Medication Instructions Recorded Confirmed Type Folic Acid 1 mg PO DAILY #30 tablet 01/18/20 02/02/20 Rx Multivitamins, Thera [Multivitamin 1 tab PO DAILY #30 tablet 01/18/20 02/02/20 Rx (formulary)] Thiamine [Vitamin B-1] 100 mg PO DAILY #30 tablet 01/18/20 02/02/20 Rx HYDROcodone/APAP 5-325MG [[place] 1 each PO Q4HR PRN #18 tab 02/03/20 Rx 5-325] Omeprazole [PriLOSEC] 40 mg PO AC-BRKFST #30 capsule. 02/03/20 Rx Ondansetron Odt [Zofran Odt] 4 mg PO Q8HR PRN #30 tab 02/03/20 Rx Allergies Allergy/AdvReac Type Severity Reaction Status Date / Time No Known Allergies Allergy Verified 02/02/20 16:54 Physical Exam Vitals: Vital Signs Temp Pulse Pulse Resp BP BP Pulse Ox 02/03/20 08:00 16 02/03/20 07:59 98.5 F 102 H 16 111/79 96 02/03/20 03:11 98.7 F 100 14 107/72 95 02/03/20 00:00 97 14 02/02/20 23:27 98.2 F 97 14 102/74 96 02/02/20 19:00 98.9 F 100 14 103/66 96 02/02/20 18:20 99.4 F 101 H 18 116/73 96 02/02/20 17:00 112 H 18 115/74 96 02/02/20 16:33 108 H 18 98 02/02/20 15:29 100.9 F H 128 H 18 106/76 97 Intake and Output 02/02/20 02/03/20 02/03/20 22:59 06:59 14:59 Other: Voiding Method Bedside Commode Bedside Commode Bedpan Bedpan Diaper Diaper # Voids 1 1 # Bowel Movements 1 Weight 65.317 kg PHYSICAL EXAMINATION: GENERAL: The patient is alert and oriented x3, not in any acute distress. Well developed, well nourished. HEENT: Pupils are round and equally reacting to light. EOMI. No scleral icterus. No conjunctival pallor. Normocephalic, atraumatic. No pharyngeal erythema. No thyromegaly. CARDIOVASCULAR: S1 and S2 present. No murmurs, rubs, or gallops. PULMONARY: Chest is clear to auscultation, no wheezing or crackles. ABDOMEN: Soft, nontender, nondistended, normoactive bowel sounds. No palpable organomegaly. MUSCULOSKELETAL: No joint swelling or deformity. EXTREMITIES: No cyanosis, clubbing, or pedal edema. NEUROLOGICAL: Gross neurological examination did not reveal any focal deficits. does have Some Chronic Weakness in Both Legsdoes have muscle atrophy in both legs. SKIN: No rashes. Results CBC & Chem 7: 02/03/20 06:18 02/03/20 06:18 Labs: Abnormal Lab Results - Last 24 Hours (Table) 02/02/20 02/02/20 02/02/20 Range/Units 16:00 16:00 16:00 WBC 13.0 H (3.8-10.6) k/uL RBC 2.96 L (3.80-5.40) m/uL Hgb 10.3 L (11.4-16.0) gm/dL Hct 31.7 L (34.0-46.0) % MCV 106.8 H D (80.0-100.0) fL Neutrophils # 11.0 H (1.3-7.7) k/uL Macrocytosis Sodium 133 L (137-145) mmol/L Potassium 2.7 L* (3.5-5.1) mmol/L Chloride 96 L (98-107) mmol/L Carbon Dioxide 31 H (22-30) mmol/L BUN 4 L (7-17) mg/dL Creatinine 0.27 L (0.52-1.04) mg/dL Glucose 107 H (74-99) mg/dL Plasma Lactic Acid Luis Enrique 2.3 H* (0.7-2.0) mmol/L Calcium 7.4 L (8.4-10.2) mg/dL Magnesium (1.6-2.3) mg/dL Total Bilirubin 1.9 H (0.2-1.3) mg/dL AST 43 H (14-36) U/L Alkaline Phosphatase 216 H (38-126) U/L C-Reactive Protein (<10.0) mg/L Total Protein 5.3 L (6.3-8.2) g/dL Albumin 2.6 L (3.5-5.0) g/dL Urine Appearance (Clear) Ur Squamous Epith Cells (0-4) /hpf Amorphous Sediment (None) /hpf Urine Bacteria (None) /hpf Urine Mucus (None) /hpf 02/02/20 02/02/20 02/03/20 Range/Units 16:00 18:20 06:18 WBC (3.8-10.6) k/uL RBC (3.80-5.40) m/uL Hgb (11.4-16.0) gm/dL Hct (34.0-46.0) % MCV (80.0-100.0) fL Neutrophils # (1.3-7.7) k/uL Macrocytosis Sodium 135 L (137-145) mmol/L Potassium 2.9 L (3.5-5.1) mmol/L Chloride (98-107) mmol/L Carbon Dioxide (22-30) mmol/L BUN <2 L (7-17) mg/dL Creatinine 0.26 L (0.52-1.04) mg/dL Glucose (74-99) mg/dL Plasma Lactic Acid Luis Enrique (0.7-2.0) mmol/L Calcium 6.4 L* (8.4-10.2) mg/dL Magnesium 1.2 L (1.6-2.3) mg/dL Total Bilirubin (0.2-1.3) mg/dL AST 70 H (14-36) U/L Alkaline Phosphatase 172 H (38-126) U/L C-Reactive Protein (<10.0) mg/L Total Protein 4.2 L (6.3-8.2) g/dL Albumin 1.9 L (3.5-5.0) g/dL Urine Appearance Cloudy H (Clear) Ur Squamous Epith Cells 8 H (0-4) /hpf Amorphous Sediment Rare H (None) /hpf Urine Bacteria Rare H (None) /hpf Urine Mucus Rare H (None) /hpf 02/03/20 02/03/20 Range/Units 06:18 06:18 WBC (3.8-10.6) k/uL RBC 2.54 L (3.80-5.40) m/uL Hgb 8.6 L D (11.4-16.0) gm/dL Hct 27.7 L (34.0-46.0) % MCV 109.3 H (80.0-100.0) fL Neutrophils # (1.3-7.7) k/uL Macrocytosis Marked A Sodium (137-145) mmol/L Potassium (3.5-5.1) mmol/L Chloride (98-107) mmol/L Carbon Dioxide (22-30) mmol/L BUN (7-17) mg/dL Creatinine (0.52-1.04) mg/dL Glucose (74-99) mg/dL Plasma Lactic Acid Luis Enrique (0.7-2.0) mmol/L Calcium (8.4-10.2) mg/dL Magnesium (1.6-2.3) mg/dL Total Bilirubin (0.2-1.3) mg/dL AST (14-36) U/L Alkaline Phosphatase (38-126) U/L C-Reactive Protein 202.1 H (<10.0) mg/L Total Protein (6.3-8.2) g/dL Albumin (3.5-5.0) g/dL Urine Appearance (Clear) Ur Squamous Epith Cells (0-4) /hpf Amorphous Sediment (None) /hpf Urine Bacteria (None) /hpf Urine Mucus (None) /hpf Assessment and Plan Plan: -possible gastritis or gastroenteritis: Patient will be discharged on Prilosec -rule ou COVID19 -bilateral lower limb weakness, chronic. Etiology is not clear patient will need EMG as an outpatient patient will be referred to neurologist as an outpatient patient was extensively evaluated in the past and the neurologist at that time recommended outpatient follow-up for an EMG and a folate and B12 supplementation patient is already receiving folate and B12 supplementation -nicotine abuse: Counseling was provided.
--- NOTE | 2020-02-03 14:25 | P.DS ---
Providers Date of admission: 02/02/20 17:27 Attending physician: Arlette Marley Consults: 02/02/20 17:36 Consult Physician Stat Consulting Provider: Gavino Carlin Consult Reason/Comments: Shortness of breath, cough, electrolyte imbalance Do you want consulting provider notified?: Yes Primary care physician: Stated None Hospital Course: refer to my history of present illness for further details Patient Condition at Discharge: Fair Plan - Discharge Summary Discharge Rx Participant: No New Discharge Prescriptions: New HYDROcodone/APAP 5-325MG [[place] 5-325] 1 each PO Q4HR PRN #18 tab PRN Reason: Moderate Pain Omeprazole [PriLOSEC] 40 mg PO AC-BRKFST #30 capsule. Ondansetron Odt [Zofran Odt] 4 mg PO Q8HR PRN #30 tab PRN Reason: Nausea And Vomiting Continue Folic Acid 1 mg PO DAILY #30 tablet Multivitamins, Thera [Multivitamin (formulary)] 1 tab PO DAILY #30 tablet Thiamine [Vitamin B-1] 100 mg PO DAILY #30 tablet Discharge Medication List Folic Acid 1 mg PO DAILY #30 tablet 01/18/20 [Rx] Multivitamins, Thera [Multivitamin (formulary)] 1 tab PO DAILY #30 tablet 01/18/20 [Rx] Thiamine [Vitamin B-1] 100 mg PO DAILY #30 tablet 01/18/20 [Rx] HYDROcodone/APAP 5-325MG [[place] 5-325] 1 each PO Q4HR PRN #18 tab 02/03/20 [Rx] Omeprazole [PriLOSEC] 40 mg PO AC-BRKFST #30 capsule. 02/03/20 [Rx] Ondansetron Odt [Zofran Odt] 4 mg PO Q8HR PRN #30 tab 02/03/20 [Rx] Follow up Appointment(s)/Referral(s): Ishmael Molina MD [REFERRING] - 3 Days (patient needs to call office to establish new patient status) Gama Bass MD [STAFF PHYSICIAN] - 1 Week [facility], [NON-STAFF] - Activity/Diet/Wound Care/Special Instructions: Patient will be admitted Discharge Disposition: HOME WITH HOME HEALTH SERVICES
[2020-02-03 15:02] LABS: HGB 8.6 gm/dL (11.4-16.0)
[2020-02-03 15:57] VITALS: BP 108/74; PULSE 99; RESP 17; TEMP 98.9
--- NOTE | 2020-02-03 16:22 | CDI ---
Documentation Clarification Form Date: 02/03/2020 04:15:58 PM From: Katelyn Ryan RN, CCDS Admit Date: 02/02/2020 05:27:00 PM Patient Name: Alistair Jung Visit Number: [id number] ATTENTION: The Clinical Documentation Specialists (CDI) and [facility] Coding Staff appreciate your assistance in clarifying documentation. Please respond to the clarification below the line at the bottom and electronically sign. The CDI & [facility] Coding staff will review the response and follow-up if needed. Please note: Queries are made part of the Legal Health Record. If you have any questions, please contact the author of this message via ITS. Dr. Amy Villegas Please render your opinion on the clinical significance of the patients low hemoglobin/hematocrit levels. History/Risk Factors: Chronic weakness, hyponatremia, hypokalemia, and hypomagnesemia Clinical indicators: 02/01-02/02 Hgb: 10.3/8.6 02/01-02/02 Hct: 31.7/27.7 Treatment: 02/01 1 L 0.9% NS IVF Bolus followed by 100 cc/hr In order to capture the severity of condition, please clarify if the labs/clinical indicators signify: Acute on chronic blood loss anemia Chronic blood loss anemia Iron deficiency anemia Nutritional anemia Anemia of chronic disease Unable to determine Other, please specify (Last Form Revision: January 2020) Unable to determine MTDD
== END 2020-02-03 16:48 | disposition home or self-care (01) | DRG 641 ==
LOC: EC 15:26 → 4SSUR 17:27
PROVIDERS: ADMIT Hospitalist; ATTEND Hospitalist
DX: E87.6 Hypokalemia (principal); J98.11 Atelectasis; E83.42 Hypomagnesemia; E86.0 Dehydration; E87.1 Hypo-osmolality and hyponatremia; F10.10 Alcohol abuse, uncomplicated; F17.200 Nicotine dependence, unspecified, uncomplicated; F41.9 Anxiety disorder, unspecified; J06.9 Acute upper respiratory infection, unspecified; M54.30 Sciatica, unspecified side; K29.70 Gastritis, unspecified, without bleeding; K52.9 Noninfective gastroenteritis and colitis, unspecified; R53.1 Weakness; Z79.899 Other long term (current) drug therapy; Z83.2 Family history of diseases of the blood and blood-forming organs and certain disorders involving the immune mechanism
CPT/HCPCS: 36415; 71045; 80053; 81001; 81025; 83605; 83615; 83690; 83735; 84145; 84484; 85025; 85610; 85730; 86140; 87502; 93005; 96361; 96365; 96368; 96375; 99285

== ENCOUNTER 2020-02-09 17:33 | Inpatient (IN) | payer BC, OTHER ==
[2020-02-09] MEDS ORDERED: SODIUM CHLORIDE 0.9% 1,000 ML with MVI, ADULT NO.4 WITH VIT K 10 ML, THIAMINE 100 MG, F... IV ONE ×4 (17:49)
[2020-02-09 18:09] LABS: Anisocytosis Slight; Basophils % (A) 0 %; Eosinophils # (A) 0.3 k/uL (0-0.7); Eosinophils % (A) 2 %; HCT 33.2 % (34.0-46.0); HGB 10.7 gm/dL (11.4-16.0); Lymphocytes # (A) 1.1 k/uL (1.0-4.8); Lymphocytes % (A) 10 %; MCH 33.5 pg (25.0-35.0); MCHC 32.3 g/dL (31.0-37.0); Macrocytosis Moderate; Monocytes # (A) 0.6 k/uL (0-1.0); Monocytes % (A) 6 %; Neutrophils # (A) 9.4 k/uL (1.3-7.7); Neutrophils % (A) 81 %; RBC 3.21 m/uL (3.80-5.40); RDW 16.7 % (11.5-15.5); WBC 11.7 k/uL (3.8-10.6)
[2020-02-09 18:12] LABS: MCV 103.6 fL (80.0-100.0); Platelet Count 581 k/uL (150-450)
[2020-02-09] MEDS ORDERED: SODIUM CHLORIDE 0.9% 500 ML 500 ML IV STA (18:14)
--- NOTE | 2020-02-09 18:14 | ED ---
Alcohol HPI - General Chief Complaint: Alcohol Stated Complaint: Poss Stroke Time Seen by Provider: 02/09/20 17:47 Source: patient, family, RN notes reviewed, old records reviewed Mode of arrival: wheelchair Limitations: no limitations - History of Present Illness Initial Comments: This is a 39-year-old female history of alcoholism history of recent admission for hypo-ketonemia and hyponatremia. Was brought in today by her daughter who states that the patient normally drinks a liter and a pint every day but has been drinking as much is a half a gallon of alcohol per day. She states that for last week or so she's been not acting her usual self less responsive is had nausea no vomiting she's been taking increased opioid she's been actually taking a 1 month supply in the past week. Just been demonstrating confusion. No idea and crying a lot. Patient herself is a poor historian also complains of edema to lower extremities. MD Complaint: alcohol withdrawal, alcohol dependence - Related Data Home Medications Medication Instructions Recorded Confirmed HYDROcodone/APAP 5-325MG [[place] 1 each PO Q4H PRN 02/09/20 02/09/20 5-325] Ondansetron Odt [Zofran Odt] 4 mg SL Q8H PRN 02/09/20 02/09/20 Previous Rx's Medication Instructions Recorded Folic Acid 1 mg PO DAILY #30 tablet 01/18/20 Multivitamins, Thera [Multivitamin 1 tab PO DAILY #30 tablet 01/18/20 (formulary)] Thiamine [Vitamin B-1] 100 mg PO DAILY #30 tablet 01/18/20 Omeprazole [PriLOSEC] 40 mg PO AC-BRKFST #30 capsule. 02/03/20 Allergies Allergy/AdvReac Type Severity Reaction Status Date / Time No Known Allergies Allergy Verified 02/09/20 18:15 Review of Systems ROS Statement: Those systems with pertinent positive or pertinent negative responses have been documented in the HPI. ROS Other: All systems not noted in ROS Statement are negative. Past Medical History Past Medical History: No Reported History Additional Past Medical History / Comment(s): freq nausea, elevated enzymes, bleeding with urination, sciatica, anemia, heart murmur as a child, hard to move arms and legs (1.5 years ago) History of Any Multi-Drug Resistant Organisms: None Reported Past Surgical History: No Surgical Hx Reported Past Anesthesia/Blood Transfusion Reactions: No Reported Reaction Additional Past Anesthesia/Blood Transfusion Reaction / Comment(s): never has had general anesthesia,has had epidural in past with labor. Past Psychological History: Anxiety Smoking Status: Current every day smoker Past Alcohol Use History: Abuse, Daily Past Drug Use History: None Reported - Past Family History Mother Additional Family Medical History / Comment(s): MTHR bleeding disorder, fibromyalgia, athritis Sister(s) Additional Family Medical History / Comment(s): "sticky platelet disorder" General Exam - General Exam Comments Initial Comments: This is a well-developed female who is awake alert but slow lethargic. Limitations: no limitations General appearance: alert, lethargic Head exam: Present: atraumatic, normocephalic, normal inspection Eye exam: Present: normal appearance, PERRL, EOMI. Absent: scleral icterus, conjunctival injection, periorbital swelling ENT exam: Present: mucous membranes dry Neck exam: Present: normal inspection. Absent: tenderness, meningismus, lymphadenopathy Respiratory exam: Present: normal lung sounds bilaterally. Absent: respiratory distress, wheezes, rales, rhonchi, stridor Cardiovascular Exam: Present: normal rhythm, tachycardia, normal heart sounds. Absent: systolic murmur, diastolic murmur, rubs, gallop, clicks GI/Abdominal exam: Present: soft, normal bowel sounds, other (Hepatomegaly). Absent: distended, tenderness, guarding, rebound, rigid Extremities exam: Present: full ROM, normal capillary refill, pedal edema. Absent: tenderness, joint swelling, calf tenderness Back exam: Present: normal inspection Neurological exam: Present: alert, oriented X3, CN II-XII intact Psychiatric exam: Present: normal mood, flat affect Skin exam: Present: warm, dry, intact, normal color. Absent: rash Course Vital Signs 02/09/20 02/09/20 02/09/20 17:34 17:51 18:00 Temperature 98.7 F Pulse Rate 131 H 129 H 124 H Respiratory 18 20 Rate Blood Pressure 116/84 134/86 O2 Sat by Pulse 96 Oximetry 02/09/20 18:30 Temperature Pulse Rate 122 H Respiratory 20 Rate Blood Pressure 133/98 O2 Sat by Pulse Oximetry Medical Decision Making - Medical Decision Making I did discuss findings with patient she will be admitted I did discuss case with Freda leone for Dr. Marley. The presentation consistent with alcohol withdrawal hallucinosis. Dehydration, hypomagnesemia - Lab Data Result diagrams: 02/09/20 18:00 02/09/20 18:00 Lab Results 02/09/20 02/09/20 02/09/20 Range/Units 18:00 18:00 18:00 WBC 11.7 H (3.8-10.6) k/uL RBC 3.21 L (3.80-5.40) m/uL Hgb 10.7 L (11.4-16.0) gm/dL Hct 33.2 L (34.0-46.0) % MCV 103.6 H D (80.0-100.0) fL MCH 33.5 (25.0-35.0) pg MCHC 32.3 (31.0-37.0) g/dL RDW 16.7 H (11.5-15.5) % Plt Count 581 H D (150-450) k/uL Neutrophils % 81 % Lymphocytes % 10 % Monocytes % 6 % Eosinophils % 2 % Basophils % 0 % Neutrophils # 9.4 H (1.3-7.7) k/uL Lymphocytes # 1.1 (1.0-4.8) k/uL Monocytes # 0.6 (0-1.0) k/uL Eosinophils # 0.3 (0-0.7) k/uL Basophils # 0.0 (0-0.2) k/uL Anisocytosis Slight Macrocytosis Moderate Sodium 131 L (137-145) mmol/L Potassium 4.3 (3.5-5.1) mmol/L Chloride 94 L (98-107) mmol/L Carbon Dioxide 25 (22-30) mmol/L Anion Gap 12 mmol/L BUN 5 L (7-17) mg/dL Creatinine 0.36 L (0.52-1.04) mg/dL Est GFR (CKD-EPI)AfAm >90 (>60 ml/min/1.73 sqM) Est GFR (CKD-EPI)NonAf >90 (>60 ml/min/1.73 sqM) Glucose 109 H (74-99) mg/dL Calcium 7.9 L (8.4-10.2) mg/dL Magnesium 1.3 L (1.6-2.3) mg/dL Total Bilirubin 1.6 H (0.2-1.3) mg/dL AST 75 H (14-36) U/L ALT 36 H (4-34) U/L Alkaline Phosphatase 387 H (38-126) U/L Ammonia 17 (<30) umol/L Creatine Kinase <20 L (30-135) U/L Total Protein 6.1 L (6.3-8.2) g/dL Albumin 2.8 L (3.5-5.0) g/dL Lipase 48 (23-300) U/L Serum Alcohol <10 mg/dL - EKG Data -: EKG Interpreted by Me EKG shows normal: sinus rhythm EKG Comments: Sinus tachycardia rate 126. Interval 122 QRS duration 66 QT since QTC 344/498 low-voltage QRS no acute ST-T wave changes - Radiology Data Radiology results: report reviewed (I did review the imaging and report no acute findings.), image reviewed Disposition Clinical Impression: Alcohol withdrawal delirium, Alcohol withdrawal syndrome, Hypomagnesemia, Dehydration, Tachycardia, Alcoholic hepatitis Disposition: ADMITTED IP TO THIS HOSP Condition: Fair Referrals: None,Stated [Primary Care Provider] - 1-2 days
[2020-02-09 18:22] LABS: AST 75 U/L (14-36); African American GFR (CKD) >90 (>60 ml/min/1.73 sqM); Albumin 2.8 g/dL (3.5-5.0); Alcohol <10 mg/dL; Alkaline Phosphatase 387 U/L (38-126); Anion Gap 12 mmol/L; Blood Urea Nitrogen 5 mg/dL (7-17); Calcium 7.9 mg/dL (8.4-10.2); Carbon Dioxide 25 mmol/L (22-30); Chloride 94 mmol/L (98-107); Creatine Kinase <20 U/L (30-135); Glucose 109 mg/dL (74-99); Magnesium 1.3 mg/dL (1.6-2.3); Non-African American GFR(CKD) >90 (>60 ml/min/1.73 sqM); Potassium 4.3 mmol/L (3.5-5.1); Sodium 131 mmol/L (137-145); Total Bilirubin 1.6 mg/dL (0.2-1.3); Total Protein 6.1 g/dL (6.3-8.2)
[2020-02-09 18:28] LABS: ALT 36 U/L (4-34)
--- NOTE | 2020-02-09 18:48 | CT ---
EXAMINATION TYPE: CT brain wo con DATE OF EXAM: 02/09/2020 COMPARISON: CT brain January 13, 2020 HISTORY: Patient poor historian and has difficulty following instructions. Altered mental status. CT DLP: 2572.1 mGycm. Automated Exposure Control for Dose Reduction was Utilized. TECHNIQUE: CT scan of the head is performed without contrast. FINDINGS: Suboptimal as is degraded by patient motion requiring multiple attempts at imaging There is no acute intracranial hemorrhage or, or midline shift identified mild ventricular and sulcal promine nce redemonstrated greatest over bilateral higher frontal and parietal lobes. The globes are intact a nd the visualized sinuses are clear. IMPRESSION: No acute intracranial hemorrhage or midline shift is seen. No significant change from pr ior.
--- NOTE | 2020-02-09 18:49 | XR ---
EXAMINATION TYPE: XR chest 1V portable DATE OF EXAM: 02/09/2020 COMPARISON: Chest x-ray February 02, 2020 HISTORY: Altered mental status and weakness. TECHNIQUE: Single AP portable frontal upright view of the chest is obtained. FINDINGS: Elevated right hemidiaphragm redemonstrated. There is no new suspicious focal air space op acity, pleural effusion, or pneumothorax seen. Overlying EKG leads redemonstrated. The cardiac silhou ette size remains within normal limits. The osseous structures are intact. IMPRESSION: No new acute pulmonary process.
[2020-02-09] MEDS ORDERED: MAGNESIUM SULFATE-D5W PMX 1 GM in DEXTROSE/WATER 1 100ML.BAG IVPB ONE (18:54)
[2020-02-09] MEDS ORDERED: ONDANSETRON 4 MG/2 ML VIAL IVP PRN (19:27)
[2020-02-09] MEDS ORDERED: NALOXONE 0.4 MG/ML 1 ML VIAL IV PRN (19:27)
[2020-02-09] MEDS ORDERED: LORazepam 2 MG/ML INJ IV PRN ×2 (19:29)
[2020-02-09] MEDS ORDERED: THIAMINE 100 MG/ML 2 ML VIAL IM STA (19:29)
[2020-02-09] MEDS: LORazepam 2 MG/ML INJ IV PRN (19:42)
[2020-02-09] MEDS: SODIUM CHLORIDE 0.9% 1,000 ML IV SCH (20:21)
[2020-02-10] MEDS: LORazepam 2 MG/ML INJ IV PRN (00:54)
[2020-02-10] MEDS: MULTIVITAMINS, THERA 1 EACH TAB PO SCH (06:58)
[2020-02-10] MEDS: THIAMINE 100 MG TAB PO SCH ×2 (06:58→17:40)
[2020-02-10] MEDS: FOLIC ACID 1 MG TAB PO SCH (06:58)
[2020-02-10] MEDS: PANTOPRAZOLE 40 MG TABLET PO SCH (06:58)
[2020-02-10 08:30] LABS: Anisocytosis Slight; Basophils % (A) 0 %; Eosinophils # (A) 0.4 k/uL (0-0.7); Eosinophils % (A) 5 %; HCT 28.8 % (34.0-46.0); Lymphocytes % (A) 15 %; MCH 33.7 pg (25.0-35.0); MCHC 32.1 g/dL (31.0-37.0); MCV 105.1 fL (80.0-100.0); Macrocytosis Marked; Mean Platelet Volume 8.3; Monocytes # (A) 0.5 k/uL (0-1.0); Monocytes % (A) 6 %; Neutrophils # (A) 5.2 k/uL (1.3-7.7); Neutrophils % (A) 73 %; Platelet Count 399 k/uL (150-450); RBC 2.74 m/uL (3.80-5.40); RDW 17.2 % (11.5-15.5); WBC 7.2 k/uL (3.8-10.6)
[2020-02-10 08:31] LABS: HGB 9.2 gm/dL (11.4-16.0)
[2020-02-10] MEDS: SODIUM CHLORIDE 0.9% 1,000 ML IV SCH ×2 (10:48→17:39)
[2020-02-10] MEDS: NICOTINE 21MG/24HR PATCH TRANSDERM SCH (10:58)
[2020-02-10] MEDS: KETOROLAC 30 MG/ML 1 ML VIAL IVP SCH ×2 (10:58→17:40)
[2020-02-10 11:15] LABS: Poikilocytosis (M) Present; Stomatocytes Present
--- NOTE | 2020-02-10 12:17 | P.HPIM ---
History of Present Illness 39-year-old female was admitted secondary to unresponsiveness and altered mental status patient is presently alert oriented 3 and able to get history from the patient patient was apparently brought in by the daughter and patient has been drinking about the a liter of alcohol to half a gallon of alcohol every single day. Patient was recently treated for alcohol abuse was subsequently discharged home patient has been heavily using her [place] too which led to her unresponsiveness when I evaluated the patient patient admits to using [place] but denies use using any alcohol patient blood alcohol levels are less than 10 when she came in. Patient denies suicidal ideation but appears to be bit depressed. Patient doesn't have symptoms of overuse of opiate or withdrawals of opiate at this time. Patient is complaining of bilateral lower extremity pain. Denied any significant back pain patient's liver enzymes are bit elevated because of [place] most probably patient was tachycardic on admission which is sinus tachycardia which improved at this time patient doesn't have any fever denied any cough denied any dysuria no evidence of any infection patient did have leukocytosis patient is bit hyponatremic on admission Review of Systems REVIEW OF SYSTEMS: CONSTITUTIONAL: No fever, no malaise, no fatigue. HEENT: No recent visual problems or hearing problems. Denied any sore throat. CARDIOVASCULAR: No chest pain, orthopnea, PND, no palpitations, no syncope. PULMONARY: No shortness of breath, no cough, no hemoptysis. GASTROINTESTINAL: No diarrhea, no nausea, no vomiting, no abdominal pain. NEUROLOGICAL: No headaches, no weakness, no numbness. HEMATOLOGICAL: Denies any bleeding or petechiae. GENITOURINARY: Denies any burning micturition, frequency, or urgency. MUSCULOSKELETAL/RHEUMATOLOGICAL: Denies any joint pain, swelling, or any muscle pain. ENDOCRINE: Denies any polyuria or polydipsia. The rest of the 14-point review of systems is negative. Past Medical History Past Medical History: No Reported History Additional Past Medical History / Comment(s): freq nausea, elevated enzymes, bleeding with urination, sciatica, anemia, heart murmur as a child, hard to move arms and legs (1.5 years ago) History of Any Multi-Drug Resistant Organisms: None Reported Past Surgical History: No Surgical Hx Reported Past Anesthesia/Blood Transfusion Reactions: No Reported Reaction Additional Past Anesthesia/Blood Transfusion Reaction / Comment(s): never has had general anesthesia,has had epidural in past with labor. Past Psychological History: Anxiety Smoking Status: Current every day smoker Past Alcohol Use History: Abuse, Daily Additional Past Alcohol Use History / Comment(s): started smoking at age 13, smokes a hakf a pack a day; states drinks daily but had reduced since last hospital visit. Past Drug Use History: None Reported - Past Family History Mother Additional Family Medical History / Comment(s): MTHR bleeding disorder, f ibromyalgia, athritis Sister(s) Additional Family Medical History / Comment(s): "sticky platelet disorder" Medications and Allergies Home Medications Medication Instructions Recorded Confirmed Type Folic Acid 1 mg PO DAILY #30 tablet 01/18/20 02/09/20 Rx Multivitamins, Thera [Multivitamin 1 tab PO DAILY #30 tablet 01/18/20 02/09/20 Rx (formulary)] Thiamine [Vitamin B-1] 100 mg PO DAILY #30 tablet 01/18/20 02/09/20 Rx Omeprazole [PriLOSEC] 40 mg PO AC-BRKFST #30 capsule. 02/03/20 02/09/20 Rx HYDROcodone/APAP 5-325MG [[place] 1 each PO Q4H PRN 02/09/20 02/09/20 History 5-325] Ondansetron Odt [Zofran Odt] 4 mg SL Q8H PRN 02/09/20 02/09/20 History Allergies Allergy/AdvReac Type Severity Reaction Status Date / Time No Known Allergies Allergy Verified 02/09/20 18:15 Physical Exam Vitals: Vital Signs Temp Pulse Pulse Resp BP BP Pulse Ox 02/10/20 07:00 99.0 F 92 17 109/63 93 L 02/10/20 03:13 97.8 F 97 18 106/70 96 02/09/20 20:16 99.2 F 119 H 19 117/73 92 L 02/09/20 19:30 98.2 F 115 H 16 139/87 98 02/09/20 19:00 114 H 114/85 98 02/09/20 18:30 122 H 20 133/98 02/09/20 18:00 124 H 20 134/86 02/09/20 17:51 129 H 02/09/20 17:45 130 H 02/09/20 17:34 98.7 F 131 H 18 116/84 96 Intake and Output 02/09/20 02/10/20 02/10/20 22:59 06:59 14:59 Other: Voiding Method Diaper # Voids 2 Weight 65.317 kg PHYSICAL EXAMINATION: GENERAL: The patient is alert and oriented x3, not in any acute distress. Well developed, well nourished. HEENT: Pupils are round and equally reacting to light. EOMI. No scleral icterus. No conjunctival pallor. Normocephalic, atraumatic. No pharyngeal erythema. No thyromegaly. CARDIOVASCULAR: S1 and S2 present. No murmurs, rubs, or gallops. PULMONARY: Chest is clear to auscultation, no wheezing or crackles. ABDOMEN: Soft, nontender, nondistended, normoactive bowel sounds. No palpable organomegaly. MUSCULOSKELETAL: No joint swelling or deformity. EXTREMITIES: No cyanosis, clubbing, or pedal edema. NEUROLOGICAL: Gross neurological examination did not reveal any focal deficits. SKIN: No rashes. Results CBC & Chem 7: 02/10/20 07:32 02/09/20 18:00 Labs: Abnormal Lab Results - Last 24 Hours (Table) 02/09/20 02/09/20 02/10/20 Range/Units 18:00 18:00 07:32 WBC 11.7 H (3.8-10.6) k/uL RBC 3.21 L 2.74 L (3.80-5.40) m/uL Hgb 10.7 L 9.2 L D (11.4-16.0) gm/dL Hct 33.2 L 28.8 L (34.0-46.0) % MCV 103.6 H D 105.1 H (80.0-100.0) fL RDW 16.7 H 17.2 H (11.5-15.5) % Plt Count 581 H D (150-450) k/uL Neutrophils # 9.4 H (1.3-7.7) k/uL Macrocytosis Marked A Sodium 131 L (137-145) mmol/L Chloride 94 L (98-107) mmol/L BUN 5 L (7-17) mg/dL Creatinine 0.36 L (0.52-1.04) mg/dL Glucose 109 H (74-99) mg/dL Calcium 7.9 L (8.4-10.2) mg/dL Magnesium 1.3 L (1.6-2.3) mg/dL Total Bilirubin 1.6 H (0.2-1.3) mg/dL AST 75 H (14-36) U/L ALT 36 H (4-34) U/L Alkaline Phosphatase 387 H (38-126) U/L Creatine Kinase <20 L (30-135) U/L Total Protein 6.1 L (6.3-8.2) g/dL Albumin 2.8 L (3.5-5.0) g/dL Thrombosis Risk Factor Assmnt - Choose All That Apply Each Factor Represents 1 point: Swollen legs (current), Varicose veins Thrombosis Risk Factor Assessment Total Risk Factor Score: 2 Thrombosis Risk Factor Assessment Level: Low Risk Assessment and Plan Plan: -Altered mental status and unresponsiveness acute toxic encephalopathy from excess opiate use. All the opiates were discontinued patient will be monitored overnight. -Hepatitis can be related to alcoholic hepatitis or hepatitis from acetaminophen although possibility of toxicity of his stamina for his low patient liver enzymes will be monitored. -Sinus tachycardia secondary to intravascular depletion from all call abuse -Hypovolemic hyponatremia from excess alcohol use patient will be can you done IV fluids -Elevated MCV, macrocytic anemia secondary to alcoholism patient will be continued on thiamine multivitamin supplementation upon discharge -Opiate abuse: Counseling was provided -Leukocytosis reactive without any evidence of infection -hypomagnesemia: Seconded alcoholism we'll repeat magnesium and replace magnesium -Possible alcohol abuse: Patient will be monitored for any withdrawals patient will be on withdrawal precautions at this time although patient declined using any alcohol -Possible depression management as an outpatient patient is not suicidal at this time antidepressants will not be helpful until she quits alcohol extensive counseling regarding this was provided -Bilateral leg weakness which is chronic and patient the will need an EMG as an outpatient patient was referred to neurologist during her last hospitalization patient was ruled out Coreg 19 at the time. -Nicotine abuse: Counseling was provided -DVT prophylaxis was a cutaneous heparin
[2020-02-11] MEDS: KETOROLAC 30 MG/ML 1 ML VIAL IVP SCH ×3 (00:08→12:15)
[2020-02-11 04:03] VITALS: RESP 18
[2020-02-11 08:13] VITALS: BP 126/86; PULSE 92; TEMP 99.2
[2020-02-11] MEDS: NICOTINE 21MG/24HR PATCH TRANSDERM SCH (08:34)
[2020-02-11] MEDS: PANTOPRAZOLE 40 MG TABLET PO SCH (08:34)
[2020-02-11] MEDS: THIAMINE 100 MG TAB PO SCH (08:34)
[2020-02-11] MEDS: FOLIC ACID 1 MG TAB PO SCH (08:34)
[2020-02-11] MEDS: MULTIVITAMINS, THERA 1 EACH TAB PO SCH (08:34)
[2020-02-11] MEDS: SODIUM CHLORIDE 0.9% 1,000 ML IV SCH (08:37)
[2020-02-11] MEDS ORDERED: ALPRAZolam 0.25 MG TAB PO STA (09:02)
[2020-02-11 09:38] LABS: ALT 26 U/L (4-34); AST 87 U/L (14-36); African American GFR (CKD) >90 (>60 ml/min/1.73 sqM); Albumin 2.3 g/dL (3.5-5.0); Alkaline Phosphatase 311 U/L (38-126); Anion Gap 9 mmol/L; Blood Urea Nitrogen 2 mg/dL (7-17); Calcium 7.5 mg/dL (8.4-10.2); Carbon Dioxide 23 mmol/L (22-30); Chloride 101 mmol/L (98-107); Glucose 70 mg/dL (74-99); Magnesium 1.6 mg/dL (1.6-2.3); Non-African American GFR(CKD) >90 (>60 ml/min/1.73 sqM); Potassium 3.5 mmol/L (3.5-5.1); Sodium 133 mmol/L (137-145); Total Bilirubin 1.1 mg/dL (0.2-1.3); Total Protein 5.4 g/dL (6.3-8.2)
--- NOTE | 2020-02-11 14:32 | P.DS ---
Providers Date of admission: 02/09/20 19:27 Expected date of discharge: 02/11/20 Attending physician: Arlette Marley Primary care physician: Stated None Hospital Course: Final diagnosis -Altered mental status and unresponsiveness acute toxic encephalopathy from excess opiate use -Hepatitis can be related to alcoholic hepatitis or hepatitis from acetaminophen -Sinus tachycardia secondary to intravascular depletion from alcohol abuse -Hypovolemic hyponatremia from excess alcohol -Elevated MCV, macrocytic anemia secondary to alcoholism -Opiate abuse -Leukocytosis reactive without any evidence of infection -hypomagnesemia: Secondary to alcoholism -Possible alcohol abuse: Patient will be monitored for any withdrawals -Possible depression -Bilateral leg weakness which is chronic -Nicotine abuse: Counseling was provided -DVT prophylaxis Discharge disposition Patient is being discharged in a stable condition with guarded prognosis to home. Patient will continue with home care in the outpatient setting. Patient will follow-up with Dr. Molina upon discharge. Total time taken is 35 minutes. History of present illness This is a 39-year-old female who was recently admitted with altered mental status and unresponsiveness and was being closely monitored. Per family patient has been drinking large amounts of alcohol every day and patient states she has not been drinking. Alcohol blood levels on admission came back as less than 10. Patient denies any suicidal ideations or thoughts of wanting to harm herself or others. Patient would benefit from outpatient counseling and continued physical therapy from home care as she continues to be weak in the lower extremities. Patient will also need outpatient follow-up with neurology for further studies. Instructed patient to refrain from alcohol and opiates. Currently no reports of chest pain, shortness of breath, or palpitations. Patient is afebrile. No reports of nausea or vomiting and patient is tolerating diet. On exam vital signs are stable. Temp is 99.2 F, pulse is 92, respirations are 18, blood pressure is 126/86, oxygen saturation is 97% on room air. Cardio S1, S2 are present. Respiratory system shows her to auscultation. Abdomen is soft and nontender. Nervous system shows no focal deficits. Please refer to medication reconciliation sheet for a list of medications. Patient Condition at Discharge: Fair Plan - Discharge Summary New Discharge Prescriptions: Continue Folic Acid 1 mg PO DAILY #30 tablet Multivitamins, Thera [Multivitamin (formulary)] 1 tab PO DAILY #30 tablet Thiamine [Vitamin B-1] 100 mg PO DAILY #30 tablet Omeprazole [PriLOSEC] 40 mg PO AC-BRKFST #30 capsule. Ondansetron Odt [Zofran ODT] 4 mg SL Q8H PRN PRN Reason: Nausea And Vomiting Discontinued HYDROcodone/APAP 5-325MG [[place] 5-325] 1 each PO Q4H PRN PRN Reason: Moderate Pain Discharge Medication List Folic Acid 1 mg PO DAILY #30 tablet 01/18/20 [Rx] Multivitamins, Thera [Multivitamin (formulary)] 1 tab PO DAILY #30 tablet 01/18/20 [Rx] Thiamine [Vitamin B-1] 100 mg PO DAILY #30 tablet 01/18/20 [Rx] Omeprazole [PriLOSEC] 40 mg PO AC-BRKFST #30 capsule. 02/03/20 [Rx] Ondansetron Odt [Zofran ODT] 4 mg SL Q8H PRN 02/09/20 [History] Follow up Appointment(s)/Referral(s): Ishmael Molina MD [REFERRING] - 1-2 Days (Please call office to make appointment) [facility], [NON-STAFF] - Patient Instructions/Handouts: Abuse of Alcohol (DC), Alcohol Dependence (DC) Activity/Diet/Wound Care/Special Instructions: Patient MUST follow up with Dr. Molina before home care will come to the home. Please arrange appointment before discharge TINA Discharge Disposition: HOME WITH HOME HEALTH SERVICES
== END 2020-02-11 12:35 | disposition home health service (06) | DRG 92 ==
LOC: EC 17:33 → 4SSUR 19:27
PROVIDERS: ADMIT Hospitalist; ATTEND Hospitalist
DX: G92 Toxic encephalopathy (principal); E87.1 Hypo-osmolality and hyponatremia; F10.231 Alcohol dependence with withdrawal delirium; T40.2X5A Adverse effect of other opioids, initial encounter; D53.9 Nutritional anemia, unspecified; D63.8 Anemia in other chronic diseases classified elsewhere; D72.829 Elevated white blood cell count, unspecified; E83.42 Hypomagnesemia; E86.0 Dehydration; E86.1 Hypovolemia; F11.10 Opioid abuse, uncomplicated; F17.200 Nicotine dependence, unspecified, uncomplicated; F41.9 Anxiety disorder, unspecified; K70.10 Alcoholic hepatitis without ascites; Z83.2 Family history of diseases of the blood and blood-forming organs and certain disorders involving the immune mechanism; Z79.899 Other long term (current) drug therapy; Z71.6 Tobacco abuse counseling; F32.9 Major depressive disorder, single episode, unspecified; K71.6 Toxic liver disease with hepatitis, not elsewhere classified; T39.1X5A Adverse effect of 4-Aminophenol derivatives, initial encounter
CPT/HCPCS: 36415; 70450; 71045; 80053; 80320; 82140; 82272; 82550; 83690; 83735; 85025; 93005; 96365; 96372; 96375; 99285

== ENCOUNTER 2020-10-05 16:03 | Emergency (ER) | payer BC, OTHER ==
[2020-10-05 16:07] VITALS: BP 126/89; PULSE 98; RESP 18; TEMP 98.3
--- NOTE | 2020-10-05 17:35 | XR ---
EXAMINATION TYPE: XR ankle complete LT DATE OF EXAM: 10/05/2020 COMPARISON: NONE HISTORY: Foot pain TECHNIQUE: 3 views FINDINGS: The ankle mortise is anatomic. I see no fracture. Joint spaces are normal. IMPRESSION: No acute abnormality of the left ankle.
--- NOTE | 2020-10-05 17:36 | XR ---
EXAMINATION TYPE: XR foot complete LT DATE OF EXAM: 10/05/2020 COMPARISON: NONE HISTORY: Foot pain TECHNIQUE: 3 views FINDINGS: There is some soft tissue swelling of the forefoot. There is flexion deformity of the secon d and third toes. The metatarsals are intact. I see no focal bone destruction. IMPRESSION: Flexion deformities. Soft tissue swelling. No fracture seen.
--- NOTE | 2020-10-05 17:42 | ED ---
Lower Extremity Injury HPI - General Chief Complaint: Extremity Injury, Lower Stated Complaint: Fall/ankle injury Source: patient Mode of arrival: wheelchair Limitations: no limitations - History of Present Illness Initial Comments: 40-year-old female presenting for left ankle foot injury. 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 Patient states that sometimes it causes her to trip. Patient states she tripped today inverting her left ankle. Patient states that she wanted to be sure she could weight-bear and it was not injured. Patient states she is evaluating the contractures with neurology currently. She denies additional complaints denies injury to the head and neck abdomen chest or upper extremities. Patient denies pain in the knees or hips. Remaining review of systems negative. - Related Data Home Medications Medication Instructions Recorded Confirmed Ondansetron Odt [Zofran ODT] 4 mg SL Q8H PRN 02/09/20 02/09/20 Previous Rx's Medication Instructions Recorded Folic Acid 1 mg PO DAILY #30 tablet 01/18/20 Multivitamins, Thera [Multivitamin 1 tab PO DAILY #30 tablet 01/18/20 (formulary)] Thiamine [Vitamin B-1] 100 mg PO DAILY #30 tablet 01/18/20 Omeprazole [PriLOSEC] 40 mg PO AC-BRKFST #30 capsule. 02/03/20 Ibuprofen 600 mg PO Q8H PRN 7 Days #21 tab 10/05/20 Allergies Allergy/AdvReac Type Severity Reaction Status Date / Time No Known Allergies Allergy Verified 10/05/20 16:07 Review of Systems ROS Statement: Those systems with pertinent positive or pertinent negative responses have been documented in the HPI. ROS Other: All systems not noted in ROS Statement are negative. Past Medical History Past Medical History: No Reported History Additional Past Medical History / Comment(s): freq nausea, elevated enzymes, bleeding with urination, sciatica, anemia, heart murmur as a child, hard to move arms and legs (1.5 years ago) History of Any Multi-Drug Resistant Organisms: None Reported Past Surgical History: No Surgical Hx Reported Past Anesthesia/Blood Transfusion Reactions: No Reported Reaction Additional Past Anesthesia/Blood Transfusion Reaction / Comment(s): never has had general anesthesia,has had epidural in past with labor. Past Psychological History: Anxiety Smoking Status: Current every day smoker Past Alcohol Use History: Abuse, Daily Past Drug Use History: None Reported - Past Family History Mother Additional Family Medical History / Comment(s): MTHR bleeding disorder, fibromyalgia, athritis Sister(s) Additional Family Medical History / Comment(s): "sticky platelet disorder" General Exam - General Exam Comments Initial Comments: General: The patient is awake and alert, in no distress Eye: +3 mm pupils are equal, round and reactive to light, extra-ocular movements are intact. No nystagmus. There is normal conjunctiva bilaterally. No signs of icterus. Cardiovascular: There is a regular rate and rhythm. No murmur, rub or gallop is appreciated. Respiratory: Lungs are clear to auscultation, respirations are non-labored, breath sounds are equal. No wheezes, stridor, rales, or rhonchi. Musculoskeletal: forced flexion of foot, decreased muscle tone. brusiing over lateral aspect, faint. no forefoot bruising or plantar aspect brusiing. pain over lateral malleolus. Sensation intact. Radial and DP pulses equal bilaterally 2+. Neurological: A&O x 3. CN II-XII intact grossly, There are no obvious motor or sensory deficits. Coordination appears grossly intact. Speech is normal. Skin: Skin is warm and dry and no rashes or lesions are noted. Psychiatric: Cooperative, appropriate mood & affect, normal judgment. Limitations: no limitations Course Vital Signs 10/05/20 16:04 Temperature 98.3 F Pulse Rate 98 Respiratory 18 Rate Blood Pressure 126/89 O2 Sat by Pulse 97 Oximetry Medical Decision Making - Medical Decision Making XR (-) for fracture. sensation intact, strong pulses. hx of contracture with muscle tone loss x 1.5 year. recommended nonweight bearing until orthopedic eval uation. jose bandage applied pt discharged appearing well. Disposition Clinical Impression: Fall, Foot pain, Ankle pain Disposition: HOME SELF-CARE Condition: Good Additional Instructions: Please use medication as discussed. Please follow-up with orthopedic surgery in the next 1-2 days.. Please return to emergency room if the symptoms increase or worsen or for any other concerns. Prescriptions: Ibuprofen 600 mg PO Q8H PRN 7 Days #21 tab PRN Reason: Pain Is patient prescribed a controlled substance at d/c from ED?: No Referrals: Henok More MD [Primary Care Provider] - 1-2 days Jacoby Dugan PAC [PHYSICIAN [employer]IP MILL OPERATOR] - 1-2 days Time of Disposition: 17:41
[2020-10-05] MEDS ORDERED: ACET/COD 300 MG/30 MG STARTER PACK 6 TAB BTL PO STA (17:48)
== END 2020-10-05 19:29 | disposition home or self-care (01) ==
LOC: EC 16:03
DX: M79.672 Pain in left foot (principal); M25.572 Pain in left ankle and joints of left foot; F17.200 Nicotine dependence, unspecified, uncomplicated
CPT/HCPCS: 99283

== ENCOUNTER → 2020-10-10 | Outpatient (CLI) | payer BC, OTHER ==
--- NOTE | 2020-10-11 10:50 | US ---
EXAMINATION TYPE: US transvaginal DATE OF EXAM: 10/10/2020 COMPARISON: CT & US 2018 CLINICAL HISTORY: R10.2 Pelvic Pain, N92.1 excessive menstruation. On/off pelvic pain x 1 year, irreg ular cycles, 5, para 5 TECHNIQUE: Transvaginal exam only per ordering physician. Date of LMP: 3 months ago EXAM MEASUREMENTS: Uterus: 7.7 x 4.1 x 5.0 cm Endometrial Stripe: 0.9 cm Right Ovary: not seen Left Ovary: 2.9 x 1.5 x 2.3 cm 1. Uterus: anteverted, heterogeneous 2. Endometrium: appears wnl 3. Right Ovary: not seen due to overlying bowel gas 4. Left Ovary: multiple follicles, 2.0cm cystic area 5. Bilateral Adnexa: wnl 6. Posterior cul-de-sac: wnl IMPRESSION: 1. 2 cm left ovarian cyst.
== END | disposition home or self-care (01) ==
LOC: RADUSWWP 16:23
PROVIDERS: ATTEND Obstetrics & Gynecology
DX: N83.202 Unspecified ovarian cyst, left side (principal)
CPT/HCPCS: 76830

== ENCOUNTER 2021-01-25 15:06 | Inpatient (IN) | payer BC, OTHER ==
[2021-01-25] MEDS ORDERED: SODIUM CHLORIDE 0.9% 1,000 ML IV STA (16:47)
[2021-01-25] MEDS ORDERED: LORazepam 2 MG/ML INJ IV STA (17:36)
--- NOTE | 2021-01-25 17:37 | ED ---
General Adult HPI - General Chief complaint: Alcohol Stated complaint: alcohol withdrawal Time Seen by Provider: 01/25/21 16:47 Source: patient Mode of arrival: wheelchair Limitations: no limitations - History of Present Illness Initial comments: Dictation was produced using fintonic dictation software. please excuse any grammatical, word or spelling errors. This patient was cared for during a federal and state declared state of emergency secondary to Covid 19 Chief Complaint: 40-year-old chronic alcoholic presents with alcohol withdrawal History of Present Illness: 40-year-old female she states that for several years she drinks approximately a pint of liquor daily. Patient reports last alcohol intake was yesterday. Patient reports that she's been admitted on multiple occasions for alcohol withdrawal. Patient weighs of some mild nausea and vomiting. She has mild abdominal pain. Patient states that takes approximately 1 day for her to develop severe withdrawals. The ROS documented in this emergency department record has been reviewed and confirmed by me. Those systems with pertinent positive or negative responses have been documented in the HPI. All other systems are other negative and/or noncontributory. PHYSICAL EXAM: General Impression: Alert and oriented x3, tremulous, tearful HEENT: Normocephalic atraumatic, extra-ocular movements intact, pupils equal and reactive to light bilaterally, mucous membranes moist. Cardiovascular: Heart regular rate and rhythm Chest: Able to complete full sentences, no retractions, no tachypnea Abdomen: abdomen soft, non-tender, non-distended, no organomegaly Musculoskeletal: Pulses present and equal in all extremities, no peripheral edema Motor: no focal deficits noted Neurological: CN II-XII grossly intact, no focal motor or sensory deficits noted Skin: Intact with no visualized rashes Psych: Normal affect and mood ED course: 40-year-old female presents with alcohol withdrawal. Vital signs upon arrival shows tachycardia 103, rest of vital signs within acceptable limits. Patient appears to be very tremulous at bedside. Laboratory evaluation obtained. Mild leukocytosis of 11.9 with secondary stress. There is positive macrocytosis. Metabolic panel is unremarkable. She does have magnesium of 1.4. Serum alcohol is negative. Patient given Ativan. Given patient's degree of alcoholism patient will be admitted for alcohol withdrawal. Case discussed with Dr. More who is willing to accept patients care. Patient will be started on Ativan protocol and every 2 hours CIWA. EKG interpretation: Ventricular rate 96, normal sinus rhythm,. Interval 142, QRS 84, QTC 477. No NC prolongation, no QTC prolongation, no ST or T-wave changes noted. Overall, this EKG is unremarkable - Related Data Home Medications Medication Instructions Recorded Confirmed No Known Home Medications 01/25/21 01/25/21 Allergies Allergy/AdvReac Type Severity Reaction Status Date / Time No Known Allergies Allergy Verified 01/25/21 18:40 Review of Systems ROS Statement: Those systems with pertinent positive or pertinent negative responses have been documented in the HPI. ROS Other: All systems not noted in ROS Statement are negative. Past Medical History Past Medical History: No Reported History Additional Past Medical History / Comment(s): freq nausea, elevated enzymes, bleeding with urination, sciatica, anemia, heart murmur as a child, hard to move arms and legs (1.5 years ago) History of Any Multi-Drug Resistant Organisms: None Reported Past Surgical History: No Surgical Hx Reported Past Anesthesia/Blood Transfusion Reactions: No Reported Reaction Additional Past Anesthesia/Blood Transfusion Reaction / Comment(s): never has had general anesthesia,has had epidural in past with labor. Past Psychological History: Anxiety, Depression Smoking Status: Current every day smoker Past Alcohol Use History: Abuse, Daily, Heavy Past Drug Use History: None Reported - Past Family History Mother Additional Family Medical History / Comment(s): MTHR bleeding disorder, fibromyalgia, athritis Sister(s) Additional Family Medical History / Comment(s): "sticky platelet disorder" General Exam Limitations: no limitations Course Vital Signs 01/25/21 16:34 Temperature 99.0 F Pulse Rate 103 H Respiratory 22 Rate Blood Pressure 134/89 O2 Sat by Pulse 97 Oximetry Medical Decision Making - Lab Data Result diagrams: 01/25/21 17:05 01/25/21 17:50 Lab Results 01/25/21 01/25/21 01/25/21 Range/Units 17:05 17:05 17:50 WBC 11.9 H (3.8-10.6) k/uL RBC 3.69 L (3.80-5.40) m/uL Hgb 14.9 (11.4-16.0) gm/dL Hct 45.7 (34.0-46.0) % MCV 123.8 H (80.0-100.0) fL MCH 40.3 H (25.0-35.0) pg MCHC 32.6 (31.0-37.0) g/dL RDW 14.8 (11.5-15.5) % Plt Count 148 L (150-450) k/uL MPV 11.2 Neutrophils % 82 % Lymphocytes % 9 % Monocytes % 5 % Eosinophils % 2 % Basophils % 1 % Neutrophils # 9.8 H (1.3-7.7) k/uL Lymphocytes # 1.1 (1.0-4.8) k/uL Monocytes # 0.6 (0-1.0) k/uL Eosinophils # 0.3 (0-0.7) k/uL Basophils # 0.1 (0-0.2) k/uL Manual Slide Review Performed Macrocytosis Marked A Stomatocytes Present Sodium 135 L (137-145) mmol/L Potassium 3.6 (3.5-5.1) mmol/L Chloride 97 L (98-107) mmol/L Carbon Dioxide 26 (22-30) mmol/L Anion Gap 12 mmol/L BUN 8 (7-17) mg/dL Creatinine 0.41 L (0.52-1.04) mg/dL Est GFR (CKD-EPI)AfAm >90 (>60 ml/min/1.73 sqM) Est GFR (CKD-EPI)NonAf >90 (>60 ml/min/1.73 sqM) Glucose 81 (74-99) mg/dL Plasma Lactic Acid Luis Enrique 1.4 (0.7-2.0) mmol/L Calcium 8.8 (8.4-10.2) mg/dL Magnesium 1.4 L (1.6-2.3) mg/dL Total Bilirubin 1.0 (0.2-1.3) mg/dL AST 51 H (14-36) U/L ALT 24 (4-34) U/L Alkaline Phosphatase 150 H (38-126) U/L Total Protein 6.7 (6.3-8.2) g/dL Albumin 4.2 (3.5-5.0) g/dL Serum Alcohol <10 mg/dL Disposition Clinical Impression: Alcohol withdrawal Disposition: ADMITTED IP TO THIS [facility] Condition: Fair Referrals: Henok More MD [Primary Care Provider] - 1-2 days Decision Time: 19:54
[2021-01-25 17:38] LABS: Basophils # (A) 0.1 k/uL (0-0.2); Basophils % (A) 1 %; Eosinophils # (A) 0.3 k/uL (0-0.7); Eosinophils % (A) 2 %; HCT 45.7 % (34.0-46.0); HGB 14.9 gm/dL (11.4-16.0); Lymphocytes # (A) 1.1 k/uL (1.0-4.8); Lymphocytes % (A) 9 %; MCH 40.3 pg (25.0-35.0); MCHC 32.6 g/dL (31.0-37.0); Macrocytosis Marked; Mean Platelet Volume 11.2; Monocytes # (A) 0.6 k/uL (0-1.0); Monocytes % (A) 5 %; Neutrophils # (A) 9.8 k/uL (1.3-7.7); Neutrophils % (A) 82 %; Platelet Count 148 k/uL (150-450); RBC 3.69 m/uL (3.80-5.40); RDW 14.8 % (11.5-15.5); WBC 11.9 k/uL (3.8-10.6)
[2021-01-25 17:40] LABS: MCV 123.8 fL (80.0-100.0)
[2021-01-25 17:49] LABS: Stomatocytes Present
[2021-01-25 18:19] LABS: ALT 24 U/L (4-34); AST 51 U/L (14-36); African American GFR (CKD) >90 (>60 ml/min/1.73 sqM); Albumin 4.2 g/dL (3.5-5.0); Alcohol <10 mg/dL; Alkaline Phosphatase 150 U/L (38-126); Anion Gap 12 mmol/L; Blood Urea Nitrogen 8 mg/dL (7-17); Calcium 8.8 mg/dL (8.4-10.2); Carbon Dioxide 26 mmol/L (22-30); Chloride 97 mmol/L (98-107); Glucose 81 mg/dL (74-99); Magnesium 1.4 mg/dL (1.6-2.3); Non-African American GFR(CKD) >90 (>60 ml/min/1.73 sqM); Potassium 3.6 mmol/L (3.5-5.1); Sodium 135 mmol/L (137-145); Total Protein 6.7 g/dL (6.3-8.2)
[2021-01-25] MEDS ORDERED: NALOXONE 0.4 MG/ML 1 ML VIAL IV PRN (19:55)
[2021-01-25] MEDS ORDERED: THIAMINE 100 MG/ML 2 ML VIAL IM STA (19:55)
[2021-01-25] MEDS ORDERED: LORazepam 2 MG/ML INJ IV PRN (19:55)
[2021-01-25] MEDS: THIAMINE 100 MG TAB PO SCH (19:56)
[2021-01-25] MEDS: LORazepam 2 MG/ML INJ IV PRN (20:05)
[2021-01-26] MEDS: LORazepam 2 MG/ML INJ IV PRN ×5 (00:16→20:09)
[2021-01-26] MEDS ORDERED: Magnesium Replacement Protocol 1 EACH MISC MISCELLANE PRN (07:29)
[2021-01-26] MEDS: THIAMINE 100 MG TAB PO SCH ×2 (07:37→18:17)
[2021-01-26] MEDS: NICOTINE 21MG/24HR PATCH TRANSDERM SCH (10:08)
[2021-01-26] MEDS: MAGNESIUM SULFATE-D5W PMX 1 GM in DEXTROSE/WATER 1 100ML.BAG IVPB SCH ×3 (10:16→12:45)
--- NOTE | 2021-01-26 22:12 | PN ---
PROGRESS NOTE CHIEF COMPLAINT: DTs. HISTORY OF PRESENT ILLNESS: This lady is fairly well sedated at the present time. She is not having any difficulty with tremors or diplopia. PHYSICAL EXAMINATION: Her chest is clear. Cardiac exam demonstrates normal sinus rhythm. The abdomen is soft and slightly protuberant. IMPRESSION: 1. Delirium tremens. 2. Alcoholism. 3. Cirrhosis. 4. Ascites. PLAN: Continue with the detox program. MMODL / IJN: [id number] /
--- NOTE | 2021-01-26 22:12 | HP ---
HISTORY AND PHYSICAL CHIEF COMPLAINT: Chronic alcoholism, impending DTs and cirrhosis with ascites. HISTORY OF PRESENT ILLNESS: This is the first known admission for this 40-year-old white female alcoholic. She was brought to the office by her family a day or two ago with various complaints. It was obvious at that time that she had chronic alcohol damage with ascites, hepatomegaly and multiple skin changes. She was encouraged to enter treatment and agreed to come to the hospital if she decided to be detoxed. REVIEW OF SYSTEMS: She has had no seizures, diplopia, headaches, chest pain, shortness of breath, heart disease, hypertension, palpitations, syncope, abdominal pain, nausea, vomiting, hematemesis, melena, renal failure, hematuria, dysuria, vaginal bleeding, etc. Past medical history, family history, and personal and social histories are otherwise unremarkable or noncontributory. She does not take any medication. PHYSICAL EXAMINATION: Blood pressure is 132/90 with a pulse of 86 and respirations of 33, and she is afebrile. In general she appeared to be pale and chronically ill. She had hyperemia of the cheeks and some petechiae on the face from vomiting. Pupils were equal, round and reactive and there was no nystagmus or diplopia. Neck was supple. The neck veins were not distended. The chest was clear to auscultation and percussion. Cardiac exam demonstrated sinus tachycardia with no murmurs or extra sounds. The abdomen was slightly distended with ascites and liver was down about 4 inches from the costal margin. Extremities were normal. Neurologically she seemed to be intact at this time. IMPRESSION: 1. Acute alcohol intoxication. 2. Impending delirium tremens. 3. Chronic alcoholism. 4. Cirrhosis and ascites. PLAN: 1. Bedrest. 2. IV fluids. 3. CIWA protocol. 4. Detox and then start in an outpatient program. MMODL / IJN: [id number] /
[2021-01-27] MEDS: NICOTINE 21MG/24HR PATCH TRANSDERM SCH (08:27)
[2021-01-27] MEDS: THIAMINE 100 MG TAB PO SCH ×2 (08:27→16:49)
[2021-01-27 10:45] LABS: ALT 20 U/L (4-34); AST 44 U/L (14-36); African American GFR (CKD) >90 (>60 ml/min/1.73 sqM); Albumin 3.1 g/dL (3.5-5.0); Albumin/Globulin Ratio 1.3; Alkaline Phosphatase 109 U/L (38-126); Anion Gap 4 mmol/L; Blood Urea Nitrogen 9 mg/dL (7-17); Calcium 8.4 mg/dL (8.4-10.2); Carbon Dioxide 28 mmol/L (22-30); Chloride 104 mmol/L (98-107); Globulin 2.4 g/dL; Glucose 91 mg/dL (74-99); Lipase 67 U/L (23-300); Non-African American GFR(CKD) >90 (>60 ml/min/1.73 sqM); Sodium 136 mmol/L (137-145); Total Bilirubin 0.5 mg/dL (0.2-1.3); Total Protein 5.5 g/dL (6.3-8.2)
[2021-01-27 10:46] LABS: Basophils % (A) 1 %; Eosinophils # (A) 0.2 k/uL (0-0.7); Eosinophils % (A) 3 %; HGB 12.8 gm/dL (11.4-16.0); Lymphocytes # (A) 1.6 k/uL (1.0-4.8); Lymphocytes % (A) 24 %; MCH 41.6 pg (25.0-35.0); MCHC 32.8 g/dL (31.0-37.0); MCV 126.9 fL (80.0-100.0); Macrocytosis Marked; Mean Platelet Volume 8.9; Monocytes # (A) 0.4 k/uL (0-1.0); Monocytes % (A) 6 %; Neutrophils # (A) 4.2 k/uL (1.3-7.7); Neutrophils % (A) 66 %; Platelet Count 175 k/uL (150-450); RBC 3.07 m/uL (3.80-5.40); RDW 14.5 % (11.5-15.5); WBC 6.4 k/uL (3.8-10.6)
[2021-01-27 10:55] LABS: INR 0.9 (<1.2); Prothrombin Time 9.8 sec (9.0-12.0)
[2021-01-27 11:13] LABS: Poikilocytosis (M) Present
[2021-01-27] MEDS: LORazepam 2 MG/ML INJ IV PRN ×2 (16:49→22:08)
[2021-01-28] MEDS: THIAMINE 100 MG TAB PO SCH ×2 (07:55→16:21)
[2021-01-28] MEDS: LORazepam 2 MG/ML INJ IV PRN ×2 (07:55→15:17)
[2021-01-28] MEDS: NICOTINE 21MG/24HR PATCH TRANSDERM SCH (07:55)
[2021-01-28 08:09] VITALS: RESP 16
[2021-01-28 16:58] VITALS: BP 122/87; PULSE 112; TEMP 98.3
--- NOTE | 2021-01-28 17:15 | PN ---
PROGRESS NOTE DATE OF SERVICE: 01/27/2021. CHIEF COMPLAINT: DTs. HISTORY OF PRESENT ILLNESS: This lady is somewhat tremulous. She is not nauseated. She is not confused. She denies diplopia. PHYSICAL EXAMINATION: She is lethargic and slightly tremulous. She remains pale. Chest is clear. Cardiac exam demonstrates sinus tachycardia. Abdomen is soft. The liver is enlarged. IMPRESSION: 1. Delirium tremens. 2. Acute alcohol intoxication. 3. Chronic alcoholism. 4. Cirrhosis with ascites. PLAN: Continue with detox and reassess tomorrow. MMODL / IJN: [id number] /
--- NOTE | 2021-01-28 17:18 | PN ---
PROGRESS NOTE DATE OF SERVICE: 01/28/2021. CHIEF COMPLAINT: Acute on chronic alcoholism with DTs. HISTORY OF PRESENT ILLNESS: This lady is still is unsteady. She has not been up and about. She remains slightly tremulous. PHYSICAL EXAMINATION: Chest is clear. Cardiac exam is normal sinus rhythm. Abdomen is soft, nontender. IMPRESSION: Acute alcohol intoxication with chronic alcoholism and delirium tremens. PLAN: Continue with protocol gradually increase activity. She is anxious to be discharged. She may sign out AMA. MMODL / IJN: [id number] /
== END 2021-01-28 18:14 | disposition left against medical advice (07) | DRG 894 ==
LOC: EC 15:06 → 5NMEDONC 19:55 → 4SSUR 22:11
PROVIDERS: ADMIT Family Medicine; ATTEND Family Medicine
DX: F10.231 Alcohol dependence with withdrawal delirium (principal); R18.8 Other ascites; D72.829 Elevated white blood cell count, unspecified; F17.200 Nicotine dependence, unspecified, uncomplicated; F10.229 Alcohol dependence with intoxication, unspecified; D75.89 Other specified diseases of blood and blood-forming organs; Z83.2 Family history of diseases of the blood and blood-forming organs and certain disorders involving the immune mechanism; Z20.822 Contact with and (suspected) exposure to COVID-19; K74.60 Unspecified cirrhosis of liver
CPT/HCPCS: 36415; 80053; 80320; 83605; 83690; 83735; 85025; 85610; 87635; 93005; 96361; 96374; 99285

== ENCOUNTER 2021-01-30 16:54 | Observation (INO) | payer BC, OTHER ==
--- NOTE | 2021-01-30 17:34 | ED ---
Medical Decision Making - Medical Decision Making Medical screening exam: 40-year-old female with past medical history of daily alcohol abuse. She presents to the emergency department for EtOH withdrawal symptoms. Patient is familiar to me she was recently admitted to the hospital. She reports that she left AGAINST MEDICAL ADVICE. When asked why she left AGAINST MEDICAL ADVICE states that her was having psychiatric issues. She is back in emergency department feeling as though she needs to be admitted. This appears slightly shaky at bedside. Vital signs are normal. Patient on physical exam has mildly elevated Ciwa score. Patient also complains of mild chest pain. She denies any cardiac history. - Lab Data Result diagrams: 02/01/21 15:08 02/01/21 15:08 Disposition Clinical Impression: Alcohol withdrawal syndrome, Chest pain Disposition: ADMITTED IP TO THIS HOSP
[2021-01-30] MEDS ORDERED: ASPIRIN 81 MG PO STA (18:09)
[2021-01-30] MEDS ORDERED: NITROGLYCERIN OINT 1 INCH/GM PACKET TOPICAL STA (18:09)
[2021-01-30] MEDS ORDERED: LORazepam 2 MG/ML INJ IV STA (18:10)
--- NOTE | 2021-01-30 18:16 | ED ---
General Adult HPI - General Chief complaint: Alcohol Stated complaint: Wants help to quit drinking, chest Pain Time Seen by Provider: 01/30/21 17:25 Source: patient, RN notes reviewed Mode of arrival: ambulatory Limitations: no limitations - History of Present Illness Initial comments: Patient is a pleasant 40-year-old female presenting to the emergency Department with complaints of palms with alcohol. Patient was trying to get off alcohol. Patient states she normally drinks at least a pint and a half daily or more. Patient has also been having some chest discomfort over the past couple of days. Discomfort is difficult to describe. Patient does have associated dyspnea, nausea, diaphoresis. Patient feels shaky, last drink was last night. - Related Data Home Medications Medication Instructions Recorded Confirmed Acetaminophen [Tylenol] 1,000 mg PO Q6H PRN 01/30/21 01/30/21 Ibuprofen [Motrin Ib] 600 mg PO Q8H PRN 01/30/21 01/30/21 Multivitamins, Thera [Multivitamin 1 tab PO DAILY 01/30/21 01/30/21 (formulary)] Allergies Allergy/AdvReac Type Severity Reaction Status Date / Time No Known Allergies Allergy Verified 01/30/21 18:38 Review of Systems ROS Statement: Those systems with pertinent positive or pertinent negative responses have been documented in the HPI. ROS Other: All systems not noted in ROS Statement are negative. Constitutional: Denies: fever Eyes: Denies: eye pain ENT: Denies: ear pain Respiratory: Reports: as per HPI. Denies: cough Cardiovascular: Reports: as per HPI, chest pain Endocrine: Denies: fatigue Gastrointestinal: Denies: abdominal pain Genitourinary: Denies: dysuria Musculoskeletal: Denies: back pain Skin: Denies: rash Neurological: Denies: weakness Psychiatric: Reports: as per HPI, anxiety Past Medical History Past Medical History: Asthma, COPD, Fibromyalgia, Memory Impairment Additional Past Medical History / Comment(s): freq nausea, elevated enzymes, bleeding with urination, sciatica, anemia, heart murmur as a child, hard to move arms and legs (1.5 years ago) History of Any Multi-Drug Resistant Organisms: None Reported Past Surgical History: No Surgical Hx Reported Past Anesthesia/Blood Transfusion Reactions: No Reported Reaction Additional Past Anesthesia/Blood Transfusion Reaction / Comment(s): never has had general anesthesia,has had epidural in past with labor. Past Psychological History: Anxiety, Depression Smoking Status: Current every day smoker Past Alcohol Use History: Abuse, Daily, Heavy Past Drug Use History: None Reported, Marijuana - Past Family History Mother Family Medical History: CVA/TIA, Fibromyalgia Additional Family Medical History / Comment(s): MTHR bleeding disorder, fibromyalgia, athritis; sents in brain Sister(s) Additional Family Medical History / Comment(s): "sticky platelet disorder" General Exam Limitations: no limitations General appearance: alert, in no apparent distress, other (Mild resting tremor) Eye exam: Present: normal appearance Neck exam: Present: normal inspection Respiratory exam: Present: normal lung sounds bilaterally Cardiovascular Exam: Present: regular rate, normal rhythm, normal heart sounds Expanded Peripheral pulses: 2+: Radial (R), Radial (L), Posterior Tibialis (R), Posterior Tibialis (L) GI/Abdominal exam: Present: soft. Absent: tenderness Extremities exam: Present: normal inspection, other (Postop shoe left foot. Patient states she did have a foot fracture several months ago.). Absent: pedal edema, calf tenderness Neurological exam: Present: alert Psychiatric exam: Present: anxious Skin exam: Present: normal color Course Vital Signs 01/30/21 17:28 Temperature 99.0 F Pulse Rate 96 Respiratory 18 Rate Blood Pressure 126/93 O2 Sat by Pulse 97 Oximetry EKG Findings - EKG Comments: EKG Findings:: Sinus tachycardia 102. DC 124. QRS 76. QT 324. QTC 422. Normal axis. Normal QRS. No acute ST change. Medical Decision Making - Medical Decision Making Patient reevaluated and resting comfortably in bed. Patient and family updated on results and plan. Case was discussed with Dr. More who is familiar with this patient and will admit. - Lab Data Result diagrams: 01/30/21 18:12 01/30/21 18:12 Lab Results 01/30/21 01/30/21 01/30/21 Range/Units 18:09 18:09 18:12 WBC (3.8-10.6) k/uL RBC (3.80-5.40) m/uL Hgb (11.4-16.0) gm/dL Hct (34.0-46.0) % MCV (80.0-100.0) fL MCH (25.0-35.0) pg MCHC (31.0-37.0) g/dL RDW (11.5-15.5) % Plt Count (150-450) k/uL MPV Neutrophils % % Lymphocytes % % Monocytes % % Eosinophils % % Basophils % % Neutrophils # (1.3-7.7) k/uL Lymphocytes # (1.0-4.8) k/uL Monocytes # (0-1.0) k/uL Eosinophils # (0-0.7) k/uL Basophils # (0-0.2) k/uL Manual Slide Review Toxic Granulation Poikilocytosis (manual Macrocytosis PT 9.9 (9.0-12.0) sec INR 0.9 (<1.2) APTT 19.5 L (22.0-30.0) sec D-Dimer 0.39 (<0.60) mg/L FEU Sodium 133 L (137-145) mmol/L Potassium 4.3 (3.5-5.1) mmol/L Chloride 99 (98-107) mmol/L Carbon Dioxide 27 (22-30) mmol/L Anion Gap 7 mmol/L BUN 9 (7-17) mg/dL Creatinine 0.37 L (0.52-1.04) mg/dL Est GFR (CKD-EPI)AfAm >90 (>60 ml/min/1.73 sqM) Est GFR (CKD-EPI)NonAf >90 (>60 ml/min/1.73 sqM) Glucose 105 H (74-99) mg/dL Calcium 10.0 (8.4-10.2) mg/dL Magnesium 1.6 (1.6-2.3) mg/dL Troponin I <0.012 (0.000-0.034) ng/mL Serum Alcohol <10 mg/dL 01/30/21 Range/Units 18:12 WBC 12.6 H (3.8-10.6) k/uL RBC 3.62 L (3.80-5.40) m/uL Hgb 15.4 (11.4-16.0) gm/dL Hct 43.7 (34.0-46.0) % MCV 120.7 H D (80.0-100.0) fL MCH 42.6 H (25.0-35.0) pg MCHC 35.3 (31.0-37.0) g/dL RDW 13.7 (11.5-15.5) % Plt Count 294 (150-450) k/uL MPV 7.9 Neutrophils % 78 % Lymphocytes % 12 % Monocytes % 7 % Eosinophils % 2 % Basophils % 0 % Neutrophils # 9.8 H (1.3-7.7) k/uL Lymphocytes # 1.5 (1.0-4.8) k/uL Monocytes # 0.8 (0-1.0) k/uL Eosinophils # 0.3 (0-0.7) k/uL Basophils # 0.1 (0-0.2) k/uL Manual Slide Review Performed Toxic Granulation Present Poikilocytosis (manual Present Macrocytosis Marked A PT (9.0-12.0) sec INR (<1.2) APTT (22.0-30.0) sec D-Dimer (<0.60) mg/L FEU Sodium (137-145) mmol/L Potassium (3.5-5.1) mmol/L Chloride (98-107) mmol/L Carbon Dioxide (22-30) mmol/L Anion Gap mmol/L BUN (7-17) mg/dL Creatinine (0.52-1.04) mg/dL Est GFR (CKD-EPI)AfAm (>60 ml/min/1.73 sqM) Est GFR (CKD-EPI)NonAf (>60 ml/min/1.73 sqM) Glucose (74-99) mg/dL Calcium (8.4-10.2) mg/dL Magnesium (1.6-2.3) mg/dL Troponin I (0.000-0.034) ng/mL Serum Alcohol mg/dL - Radiology Data Radiology results: image reviewed (Chest x-ray shows diaphragmatic scarring and fluid without change.) Disposition Clinical Impression: Alcohol withdrawal syndrome, Chest pain Disposition: ADMITTED IP TO THIS HOSP Is patient prescribed a controlled substance at d/c from ED?: No Referrals: Henok More MD [Primary Care Provider] - 1-2 days Decision Time: 20:13
[2021-01-30 18:26] LABS: Basophils # (A) 0.1 k/uL (0-0.2); Basophils % (A) 0 %; Eosinophils # (A) 0.3 k/uL (0-0.7); Eosinophils % (A) 2 %; HCT 43.7 % (34.0-46.0); HGB 15.4 gm/dL (11.4-16.0); Lymphocytes # (A) 1.5 k/uL (1.0-4.8); Lymphocytes % (A) 12 %; MCH 42.6 pg (25.0-35.0); MCHC 35.3 g/dL (31.0-37.0); MCV 120.7 fL (80.0-100.0); Macrocytosis Marked; Mean Platelet Volume 7.9; Monocytes # (A) 0.8 k/uL (0-1.0); Monocytes % (A) 7 %; Neutrophils # (A) 9.8 k/uL (1.3-7.7); Neutrophils % (A) 78 %; Platelet Count 294 k/uL (150-450); RBC 3.62 m/uL (3.80-5.40); RDW 13.7 % (11.5-15.5); WBC 12.6 k/uL (3.8-10.6)
[2021-01-30 18:37] LABS: African American GFR (CKD) >90 (>60 ml/min/1.73 sqM); Alcohol <10 mg/dL; Anion Gap 7 mmol/L; Blood Urea Nitrogen 9 mg/dL (7-17); Carbon Dioxide 27 mmol/L (22-30); Chloride 99 mmol/L (98-107); Glucose 105 mg/dL (74-99); Magnesium 1.6 mg/dL (1.6-2.3); Non-African American GFR(CKD) >90 (>60 ml/min/1.73 sqM); Potassium 4.3 mmol/L (3.5-5.1); Sodium 133 mmol/L (137-145)
--- NOTE | 2021-01-30 18:37 | XR ---
EXAMINATION TYPE: XR chest 2V DATE OF EXAM: 01/30/2021 COMPARISON: 02/09/2020 HISTORY: Chest pain TECHNIQUE: FINDINGS: Heart and mediastinum are normal. There is some blunting of right costophrenic angle. Lungs are clear of infiltrate. Bony thorax is intact. IMPRESSION: There is pleural diaphragmatic scarring and fluid at the right lung base without change. Normal heart.
[2021-01-30 18:41] LABS: Poikilocytosis (M) Present; Toxic Granulation Present
[2021-01-30 18:51] LABS: D-Dimer 0.39 mg/L FEU (<0.60); INR 0.9 (<1.2); Prothrombin Time 9.9 sec (9.0-12.0)
[2021-01-30 18:56] LABS: Partial Thromboplastin Time 19.5 sec (22.0-30.0)
[2021-01-30] MEDS ORDERED: NITROGLYCERIN SL TABS 0.4 MG TAB SUBLINGUAL PRN (20:15)
[2021-01-30] MEDS ORDERED: LORazepam 2 MG/ML INJ IV PRN (20:15)
[2021-01-30] MEDS: THIAMINE 100 MG TAB PO SCH (22:54)
[2021-01-30] MEDS: LORazepam 2 MG/ML INJ IV PRN (23:00)
[2021-01-31] MEDS: NITROGLYCERIN OINT 1 INCH/GM PACKET TOPICAL SCH ×4 (00:23→18:04)
[2021-01-31] MEDS: LORazepam 2 MG/ML INJ IV PRN ×7 (05:14→22:58)
[2021-01-31] MEDS: ASPIRIN 325 MG TAB PO SCH (08:15)
[2021-01-31] MEDS: THIAMINE 100 MG TAB PO SCH ×2 (08:15→18:04)
[2021-01-31] MEDS: MULTIVITAMINS, THERA 1 EACH TAB PO SCH (08:15)
[2021-01-31 11:33] LABS: Chol/HDL Ratio 3.7; LDL Cholesterol,Calculated 136.2 mg/dL (0.0-131.0); VLDL Calculation 28.8 mg/dL (5.00-40.00)
--- NOTE | 2021-01-31 19:03 | HP ---
HISTORY AND PHYSICAL CHIEF COMPLAINT: Chronic alcoholism and DTs. HISTORY OF PRESENT ILLNESS: This lady was just in the hospital last week and then signed herself out AGAINST MEDICAL ADVICE on Saturday. Now she is back. She is stating that she will stay for treatment now. REVIEW OF SYSTEMS: She denies diplopia, chest pain, palpitations, abdominal pain, nausea, vomiting, hematemesis, incontinence, seizures, etc. Past medical history, family history, and and personal and social histories are all otherwise unremarkable or unchanged from her recent admitting and discharge summaries. PHYSICAL EXAMINATION: Blood pressure is 130/90 with a pulse of 86, respirations 29. She is afebrile. In general she appears to be in no acute distress. Skin is normal. There is a hint of jaundice. There is hyperemia of the face. Sclerae are normal. Pupils are equal and round and gaze seems to be conjugate. The chest is clear. Cardiac exam demonstrates sinus tachycardia and the abdomen is slightly distended with ascites. The liver is down about 3 inches from the right costal margin. Extremities are normal. Neurologically she is intact. She is admitted to the hospital with the diagnoses: 1. Delirium tremens. 2. Chronic alcoholism. PLAN: 1. Bedrest. 2. IV fluids. 3. CIWA protocol. MMODL / IJN: [id number] /
[2021-01-31 20:17] LABS: Appearance,Urine Cloudy (Clear); Bacteria,Urine Rare /hpf; Bilirubin,Urine Negative (Negative); Blood,Urine Large (Negative); Color,Urine Yellow; Glucose,Urine (UA) Negative (Negative); Hyaline Casts,Urine 1 /lpf (0-2); Ketones,Urine Negative (Negative); Leukocyte Esterase,Urine Large (Negative); Mucus,Urine Moderate /hpf; Nitrite,Urine Negative (Negative); Protein,Urine 1+ (Negative); RBC,Urine 6 /hpf (0-5); Specific Gravity,Urine 1.032 (1.001-1.035); Squamous Epithelial Cell,Urine 11 /hpf (0-4); WBC,Urine 36 /hpf (0-5)
[2021-01-31 20:22] LABS: Cocaine Screen,Urine Not Detected (NotDetected); Opiate Screen,Urine Not Detected (NotDetected); Phencyclidine Screen,Urine Not Detected (NotDetected); Urn Cannabinoid Scrn Detected (NotDetected)
[2021-01-31 20:23] LABS: Amphetamine Screen,Urine Not Detected (NotDetected); Barbiturate Screen,Urine Not Detected (NotDetected); Benzodiazepines Screen,Urine Detected (NotDetected); Methadone Screen, Urine Not Detected (NotDetected); Oxycodone Screen, Urine Not Detected (NotDetected); Tricyclic Antidepressant,Urine Not Detected (NotDetected)
[2021-02-01] MEDS: NITROGLYCERIN OINT 1 INCH/GM PACKET TOPICAL SCH ×5 (01:16→23:43)
[2021-02-01] MEDS: LORazepam 2 MG/ML INJ IV PRN ×5 (02:45→22:08)
[2021-02-01] MEDS: ASPIRIN 325 MG TAB PO SCH (08:00)
[2021-02-01] MEDS: MULTIVITAMINS, THERA 1 EACH TAB PO SCH (08:00)
[2021-02-01] MEDS: THIAMINE 100 MG TAB PO SCH ×2 (08:00→17:27)
--- NOTE | 2021-02-01 18:42 | PN ---
PROGRESS NOTE CHIEF COMPLAINT: DTs. HISTORY OF PRESENT ILLNESS: This lady is doing fairly well and presently is not particular tremulous. She states that she is planning on staying in the hospital this time. PHYSICAL EXAMINATION: Chest is clear. Cardiac exam is normal except for tachycardia. Abdomen is soft and nontender. Extremities are normal. Neurologically, she is intact. IMPRESSION: She is admitted to the hospital with diagnoses: 1. DTs. 2. Chronic alcoholism. PLAN: Continue with [facility] protocol. ELOY / THEODOREN: [id number] /
[2021-02-01 22:56] LABS: HCT 36.9 % (37.2-46.3); HGB 12.8 g/dL (12.0-15.0); MCH 42.1 pg (27.0-32.0); MCHC 34.7 g/dL (32.0-37.0); MCV 121.4 fL (80.0-97.0); Mean Platelet Volume 10.6 fL (9.5-12.2); Platelet Count 241 X 10*3/uL (140-440); RBC 3.04 X 10*6/uL (4.10-5.20); RDW 12.8 % (11.5-14.5); WBC 8.28 X 10*3/uL (4.50-10.00)
[2021-02-01 23:23] LABS: INR 0.87 (0.90-1.11); Prothrombin Time 9.6 sec (9.9-11.9)
[2021-02-02 00:35] LABS: Basophils # (A) 0.05 X 10*3/uL (0.00-0.10); Basophils % (A) 0.6 %; Eosinophils # (A) 0.18 X 10*3/uL (0.04-0.35); Eosinophils % (A) 2.2 %; Lymphocytes # (A) 1.34 X 10*3/uL (0.90-5.00); Lymphocytes % (A) 16.2 %; Macrocytosis (M) 3+; Monocytes # (A) 0.89 X 10*3/uL (0.20-1.00); Monocytes % (A) 10.7 %; Neutrophils # (A) 5.77 X 10*3/uL (1.80-7.70); Neutrophils % (A) 69.7 %
[2021-02-02 02:43] LABS: African American GFR (CKD) 133.1 (60.0-200.0); Albumin 4.1 g/dL (3.80-4.90); Albumin/Globulin Ratio 2.28 (1.60-3.17); Anion Gap 10.2 mmol/L (4.00-12.00); BUN/Creat Ratio 21.67 Ratio (12.00-20.00); Calcium 9.3 mg/dL (8.7-10.3); Carbon Dioxide 23.8 mmol/L (21.6-31.8); Globulin 1.8 g/dL (1.6-3.3); Non-African American GFR(CKD) 114.8 (60.0-200.0); Potassium 4.3 mmol/L (3.5-5.5); Total Bilirubin 0.3 mg/dL (0.2-1.2); Total Protein 5.9 g/dL (6.2-8.2)
[2021-02-02] MEDS: NITROGLYCERIN OINT 1 INCH/GM PACKET TOPICAL SCH ×4 (05:32→23:30)
[2021-02-02] MEDS: ASPIRIN 325 MG TAB PO SCH (08:31)
[2021-02-02] MEDS: MULTIVITAMINS, THERA 1 EACH TAB PO SCH (08:31)
[2021-02-02] MEDS: THIAMINE 100 MG TAB PO SCH ×2 (08:31→16:39)
[2021-02-02] MEDS ORDERED: MULTIVITAMINS, THERA 1 EACH TAB PO SCH (09:00)
--- NOTE | 2021-02-02 22:18 | PN ---
PROGRESS NOTE CHIEF COMPLAINT: Acute alcohol intoxication, chronic alcoholism and DTs. HISTORY OF PRESENT ILLNESS: This lady seems very stable and is not having DTs. She is extremely depressed and crying and when ask if she would like to see Psychiatry, she agreed. PHYSICAL EXAM: Normal with normal cardiac sounds and no tremors, diplopia. Chest is clear. IMPRESSION: 1. Acute alcohol intoxication. 2. Chronic alcoholism. 3. Major depression. PLAN: 1. Continue with [facility] protocol. 2. Psych consult. MMHUSSAIN / THEODOREN: [id number] /
[2021-02-03] MEDS: LORazepam 2 MG/ML INJ IV PRN ×2 (00:08→08:01)
[2021-02-03] MEDS: NITROGLYCERIN OINT 1 INCH/GM PACKET TOPICAL SCH ×2 (06:13→13:20)
[2021-02-03] MEDS: ASPIRIN 325 MG TAB PO SCH (07:51)
[2021-02-03] MEDS: THIAMINE 100 MG TAB PO SCH (07:51)
[2021-02-03] MEDS: MULTIVITAMINS, THERA 1 EACH TAB PO SCH (07:51)
[2021-02-03] MEDS ORDERED: DULoxetine HCL 30 MG CAPSULE.DR PO SCH (13:45)
--- NOTE | 2021-02-03 13:54 | P.CN ---
Psychiatric Consult - . Consult date: 02/03/21 Consult:: 02/03/21 13:45 IDENTIFYING DATA: This patient is a 40-year-old female who currently lives with her and 3 kids and is unemployed. REASON FOR REFERRAL: Psychiatry was consulted for depression HISTORY OF PRESENT ILLNESS: The patient presented to the hospital on 01/30 after leaving AMA the previous time she was in the hospital. Patient presented back in the ER claiming that she had been using alcohol frequently and wanting to quit. She had claimed that she been using 1-1/2 pints of liquor daily. Her UDS is positive for benzodiazepines and marijuana. She was also admitting to having chest pain. She claims that she did have a history of withdrawals or complicated in the past and was noted to be depressed and crying and a psychiatric consult was placed. Patient's nurse states that patient has been mainly quiet and crying a lot. Patient was seen at the bedside today and appeared to be disheveled in appearance and crying during the conversation. She was fairly constricted in her affect. She claims that she is been "drinking too much" since 2011. She mentioned has been getting worse. She had a soft tone of voice. She spoke about feeling sick and not being able to leave the house and mainly isolating herself. She states that she has poor mobility and uses a walker. She claims that the alcohol has caused her to lose her job friendships and decline in health. She states she also has poor memory. She claims that she has been feeling fairly depressed and anxious. She is admitting to withdrawal symptoms at this time including anxiety and tremors. She claims that she does have suicidal thoughts at times however no intent or plan currently. At this time patient denies any homical ideations, intent or plan. Patient denies any auditory, visual hallucinations and denies any paranoia or delusions. Patients admits to using alcohol as described above. She has never gone to rehab before. She claims that she also smokes cigarettes daily and uses marijuana about 2 times a week. PAST PSYCHIATRIC HISTORY: Patient has a a history of depression and anxiety and also alcohol use. She states that she has been on antidepressants in the past and also Xanax. Patient denies any previous psychiatric hospitalizations. Patient denies any psychiatric outpatient follow-up. Patient denies any history of suicide attempts in the past. PAST MEDICAL HISTORY: Asthma, fibromyalgia, memory impairment. ALLERGIES: as per EMR. CHEMICAL DEPENDENCY HISTORY: as per HPI. FAMILY PSYCHIATRIC/SUBSTANCE USE HISTORY: She states that her father's sister and brother all have overdosed in the past SOCIAL HISTORY: Patient was born and raised in [place]. She states that she completed high school and did some college. 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 She claims that this was about 4 years ago since she stopped working. She claims that she has been to custodial once in the past. "Receiving stolen property". She currently has 3 kids and is unemployed and lives with her and family in a house.. MENTAL STATUS EXAM: General Appearance: Patient appears to be constricted, disheveled in appearance and older than stated age is alert, vague and guarded. Patient appears to have poor hygiene and grooming wearing hospital gown with poor eye contact. Behavior: Patient is calmly lying in bed without any agitated behavior. Crying. Speech: Patient's speech is fluent and nonpressured. Soft tone of voice Mood/Affect: Patient reports their mood is "depressed", affect is congruent and crying Suicidality/Homicidality: Patient denies having any suicidal or homicidal ideation intent or plan. She did mention having suicidal thoughts at times in the past. Perceptions: Patient denies any visual hallucinations and denies any auditory hallucinations Though content/process: There is no evidence of any delusional thought content and thought process is linear and goal-directed. Focused on her stressors and minimizing her drinking. Memory and concentration: AOX3, grossly intact for the purposes of this session. Can spell "WORLD" backwards Judgment and insight: poor IMPRESSIONS: Major depressive disorder, severe without psychotic features Alcohol use disorder severe, currently in withdrawal Cannabis use disorder mild Nicotine dependence PLAN: -At this time patient DOES meet criteria for inpatient psychiatric admission. -Would recommend the following medication changes/additions: Started patient on Cymbalta 30 mg daily for mood/anxiety/pain, trazodone 50 mg daily at bedtime for mood/insomnia. Also started patient on Librium 20 mg 3 times a day for alcohol withdrawal with a plan to taper down. -CIWA protocol with PRN Ativan for alcohol withdrawal. Continue to monitor vital signs. -Continue 1:1 sitter for safety -Cannot leave AMA at this time. Patient will need a petition and certification if attempting to leave AMA. -When medically stable, patient is eligible for transfer to a psych bed when available. -Communicated plan to patient's nurse -Psychiatry will sign off at this time -Please contact with any questions. 02/03/21 13:47
[2021-02-03] MEDS ORDERED: FOLIC ACID 1 MG TAB PO SCH (14:00)
[2021-02-03 15:51] VITALS: BP 107/75; PULSE 94; RESP 18; TEMP 98.4
[2021-02-03] MEDS ORDERED: traZODone HCL 50 MG TAB PO SCH (21:00)
--- NOTE | 2021-02-04 22:57 | DS ---
DISCHARGE SUMMARY DATE OF SERVICE: 02/03/2021 CHIEF COMPLAINT: Chronic alcoholism and DTs. HISTORY OF PRESENT ILLNESS AND PHYSICAL EXAMINATION: Details of this lady's history and physical can be found in the initial workup. LABORATORY STUDIES: While she was in the hospital, she had laboratory studies, details of which can be found in the laboratory section of her chart. COURSE IN THE HOSPITAL: After admission, she was placed on bedrest, started intravenous fluids and CIWA protocol. It was noted that she seemed to be extremely depressed and she agreed to see Psychiatry. They performed an evaluation and felt safest for her to move to the psych unit and this was arranged. FINAL DIAGNOSES: 1. Acute alcohol intoxication. 2. Delirium tremens. 3. Chronic alcoholism. 4. Major depression. OPERATIONS: None. CONSULTATION: Psychiatry. She is improved. ELOY / SHEYLA: [id number] /
== END 2021-02-03 16:30 | disposition home or self-care (01) ==
LOC: EC 16:54 → 6NMEDSUR 20:15
PROVIDERS: ADMIT Family Medicine; ATTEND Family Medicine
DX: F10.231 Alcohol dependence with withdrawal delirium (principal); F10.229 Alcohol dependence with intoxication, unspecified; F32.9 Major depressive disorder, single episode, unspecified; R00.0 Tachycardia, unspecified; R07.89 Other chest pain; F41.9 Anxiety disorder, unspecified; G47.00 Insomnia, unspecified; Z56.0 Unemployment, unspecified; F17.210 Nicotine dependence, cigarettes, uncomplicated; J44.9 Chronic obstructive pulmonary disease, unspecified; M79.7 Fibromyalgia; R41.3 Other amnesia; D64.9 Anemia, unspecified; M54.30 Sciatica, unspecified side; Z79.1 Long term (current) use of non-steroidal anti-inflammatories (NSAID); Z82.3 Family history of stroke; Z83.2 Family history of diseases of the blood and blood-forming organs and certain disorders involving the immune mechanism; Z82.61 Family history of arthritis; Z84.89 Family history of other specified conditions; Z20.822 Contact with and (suspected) exposure to COVID-19
CPT/HCPCS: 96376 ×5; 93005 ×2; 96374; 99285; 36415; 94760; 85379; 80061; 80053; 80048; 82140; 83690; 83735; 84484 ×2; 85025 ×2; 85610 ×2; 85730; 81001; 80306; 80320; 87635; 71046; G0378 ×5; J2060 ×4

== ENCOUNTER 2021-02-03 16:05 | Inpatient (IN) | payer BC, OTHER ==
[2021-02-03] MEDS ORDERED: MAGNESIUM HYDROXIDE 2,400 MG/10 ML CUP PO PRN (16:30)
[2021-02-03] MEDS ORDERED: MAG HYDROX/AL HYDROX/SIMETH 30 ML CUP PO PRN (16:30)
[2021-02-03] MEDS ORDERED: ACETAMINOPHEN TAB 325 MG TAB PO PRN (16:30)
[2021-02-03] MEDS ORDERED: IBUPROFEN 200 MG TAB PO PRN (16:35)
[2021-02-03] MEDS ORDERED: LORazepam 2 MG/ML INJ IM PRN (16:40)
[2021-02-03] MEDS: traZODone HCL 50 MG TAB PO SCH (19:55)
[2021-02-03] MEDS: ACETAMINOPHEN TAB 500 MG TAB PO PRN (19:57)
[2021-02-03] MEDS ORDERED: INFLUENZA VACCINE (6 MOS+) 60 MCG/0.5 ML SYRINGE IM ONE (20:00)
[2021-02-03] MEDS ORDERED: PNEUMOCOCCAL VACC-PNEUMOVAX 23 25 MCG/0.5 ML VIAL IM ONE (20:00)
[2021-02-03] MEDS ORDERED: HALOPERIDOL LACTATE 5 MG/ML 1 ML VIAL IM SCH (22:00)
[2021-02-04] MEDS ORDERED: HALOPERIDOL LACTATE 5 MG/ML 1 ML VIAL IM PRN (08:24)
[2021-02-04] MEDS: MULTIVITAMINS, THERA 1 EACH TAB PO SCH (09:21)
[2021-02-04] MEDS: DULoxetine HCL 30 MG CAPSULE.DR PO SCH (09:21)
[2021-02-04] MEDS: NICOTINE 14MG/24HR PATCH TRANSDERM SCH (09:22)
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
[2021-02-04 12:06] LABS: Cholesterol 218 mg/dL (<200); HDL Cholesterol 50 mg/dL (40-60); LDL Cholesterol,Calculated 143 mg/dL (0-99); Triglycerides 127 mg/dL (<150)
[2021-02-04 19:21] LABS: Hemoglobin A1C 4.6 % (4.0-6.0)
--- NOTE | 2021-02-04 19:45 | CONS ---
CONSULTATION CHIEF COMPLAINT: Major depression. HISTORY OF PRESENT ILLNESS: This lady was transferred from the medical floor with a diagnosis of major depression, alcoholism and DTs. She is very depressed. She is not at risk for DTs at this time. REVIEW OF SYSTEMS: Otherwise unremarkable and unchanged. Past medical history, family history and personal and social histories are unchanged. PHYSICAL EXAMINATION: Blood pressure is 111/64 with a pulse of 79, respirations of 15 and she is afebrile. In general she appeared to be slightly pale. Head, ears, eyes, nose, mouth were normal and unchanged. Chest was clear. Cardiac exam demonstrated sinus rhythm. Abdomen is soft and there is a small amount of ascites and liver was enlarged being about 2 inches below the costal margin. Extremities normal. Neurologically is intact. She has been admitted to the unit with diagnoses of: 1. Major depression. 2. Chronic alcoholism. RECOMMENDATIONS: None. MMODL / IJN: [id number] /
[2021-02-04] MEDS: traZODone HCL 50 MG TAB PO SCH (21:30)
[2021-02-05] MEDS: NICOTINE 14MG/24HR PATCH TRANSDERM SCH (09:00)
[2021-02-05] MEDS: DULoxetine HCL 30 MG CAPSULE.DR PO SCH (09:01)
[2021-02-05] MEDS: MULTIVITAMINS, THERA 1 EACH TAB PO SCH (09:01)
--- NOTE | 2021-02-05 12:16 | P.PN ---
Progress Note - Text Progress Note Date: 02/05/21 This patient told me that she came to Hospital on Saturday because of drinking alcohol heavily. She was admitted to medical floor. She was transferred to psychiatric floor because of her depression and repetitively falling down for which no medical cause was ascertained.She stated she feels anxious, nervous, feels dizzy, feels lightheaded, feels like she is going to fall down, starts having palpitations, becomes short of breath, starts shaking and sweating. She stated that she feels depressed and upset. She was seen in her room and was laying in the bed. She speaks in a very low monotonous voice. Her mood is depressed and affect is constricted. She is taking her medication as prescribed and does not appear to show any side effects of it. She will be encouraged to participate in unit activities.
[2021-02-05] MEDS: traZODone HCL 50 MG TAB PO SCH (20:54)
[2021-02-06] MEDS: LORazepam 1 MG TAB PO PRN ×2 (01:01→22:00)
[2021-02-06] MEDS: NICOTINE 14MG/24HR PATCH TRANSDERM SCH (08:39)
[2021-02-06] MEDS: DULoxetine HCL 30 MG CAPSULE.DR PO SCH (08:40)
[2021-02-06] MEDS: MULTIVITAMINS, THERA 1 EACH TAB PO SCH (08:40)
[2021-02-06] MEDS ORDERED: NICOTINE POLACRILEX 2 MG GUM BUCCAL PRN (11:45)
[2021-02-06] MEDS ORDERED: DULoxetine HCL 30 MG CAPSULE.DR PO ONE (12:00)
--- NOTE | 2021-02-06 12:24 | P.PN ---
Progress Note - Text Progress Note Date: 02/06/21 Interval History: Patient was seen in her wheelchair today as she was attending activities group and was directable and agreeable to speak with display card writer in the office. Patient appears to still have a constricted affect however states that her mood as been gradually improving. She claims that she still feeling mildly depressed and anxious. She was fairly preoccupied with discharge. She claims that her withdrawal symptoms and then gradually improving however still has anxiety. She claims that she has been trying to go to some groups and participate as best as she can. She was fairly guarded and evasive and continues to have fairly poor insight into her drinking and her need for treatment. She states that she has been speaking with her over the phone who also wants her to come home. Photoengraving Apprentice again spoke with patient about rehab and other medication options for alcohol cravings. She states that she was able to sleep fairly last night however continues to have poor appetite. At this time patient denies any suicidal or homical ideations, intent or plan. Patient denies any auditory, visual hallucinations and denies any paranoia or delusions. Patient denies any side effects from the medications and has been compliant with meds. Photoengraving Apprentice spoke with patient's Scott Jung over the phone at [phone]. He addressed his concerns about patient not being given the right to be discharged from the hospital and claims that patient was "forced to sign voluntary". Photoengraving Apprentice explained the 2 different ways of being admitted including involuntary and voluntary status and explained patient's rights on the unit and if she would like to sign AMA. Patient's also demanded discharge several times and was fairly rude towards display card writer calling him a "spineless bastard" and also threatened display card writer at the end of the conversation stating "watch your back". He also claims that he wanted to speak to display card writer "[id number]" tomorrow after patient was discharged. He had a very hostile tone and was very argumentative over the phone. Photoengraving Apprentice explained patients treatment here on the unit and rationale for staying another night to decrease her etoh w/c medication and increase her cymbalta. continued to persist and demand discharge today. Mental Status Exam: General Appearance: Patient appears to be in a wheelchair, stated age is alert, directable, and guarded. Behavior: Patient is calmly seated without any agitated behavior. Speech: Patient's speech is fluent and nonpressured. Soft tone of voice Mood/Affect: Mood is improving mildly, affect is congruent and constricted. Anxious. Suicidality/Homicidality: Patient denies having any suicidal or homicidal ideation intent or plan. Perceptions: Patient denies any visual hallucinations and denies any auditory hallucinations Though content/process: Patient is fairly concrete, has poverty of content. She was logical. Continues to minimize her need for treatment. Memory and concentration: AOX3, grossly intact for the purposes of this session Judgment and insight: Poor, Improving mildly Assessment Major depression recurrent severe Anxiety disorder unspecified Alcohol dependence Nicotine dependence Plan: -Patient continues to meet criteria for inpatient psychiatric admission for symptom stabilization and safety. Patient has signed adult voluntary form and medication consent and was placed in patient's chart. -Medications: Increase Cymbalta to 60 mg daily for mood/anxiety/pain. Continue with trazodone 50 mg daily at bedtime for insomnia/mood. Decrease Librium to 10 mg 3 times a day with plan to continue tapering down -When necessary Ativan and Haldol for agitation/aggression. -ciwa protocol with prn ativan. -NRT - nicotine patch+ Nicorette gum -SW on board for discharge planning. Encouraged the patient to participate in milieu. if patient does well then liekly discharge tomorrow back home. Patient is refusing rehab or any other substance use treatment option.
[2021-02-06] MEDS: traZODone HCL 50 MG TAB PO SCH (21:58)
[2021-02-06] MEDS: ACETAMINOPHEN TAB 500 MG TAB PO PRN (22:00)
[2021-02-07 07:18] VITALS: BP 80/48; PULSE 64; RESP 16; TEMP 97.8
[2021-02-07] MEDS: MULTIVITAMINS, THERA 1 EACH TAB PO SCH (08:37)
[2021-02-07] MEDS: NICOTINE 14MG/24HR PATCH TRANSDERM SCH (08:37)
[2021-02-07] MEDS ORDERED: DULoxetine HCL 60 MG CAPSULE.DR PO SCH (09:00)
--- NOTE | 2021-02-07 10:38 | P.DS ---
Providers Date of admission: 02/03/21 16:05 Expected date of discharge: 02/07/21 Attending physician: Tristan Moreno MD Consults: 02/04/21 09:46 Consult Physician Routine Consulting Provider: Henok More Consult Reason/Comments: H&P Do you want consulting provider notified?: Yes Primary care physician: Henok More - Discharge Diagnosis(es) (1) Major depressive disorder, recurrent severe without psychotic features Current Visit: Yes Status: Acute Priority: High (2) Anxiety disorder Current Visit: Yes Status: Acute Priority: Medium (3) Alcohol dependence Current Visit: Yes Status: Acute Priority: Medium (4) Nicotine dependence Current Visit: Yes Status: Acute Priority: Low Hospital Course: Admission HPI: Admission note was completed by Dr. Handy "Patient stated she came to Hospital on Saturday because of drinking alcohol heavily. She was admitted to medical floor. She was transferred to psychiatric floor because of her depression and repetitively falling down for which no medical cause was ascertained. This patient stated that her medical condition is deteriorating. She stated she is unsteady and can't walk so stays in the wheelchair. I happened to see her in the wheelchair as well. She stated that it has been going on for last 4 years. She stated that she falls frequently. She stated she feels anxious, nervous, feels dizzy, feels lightheaded, feels like she is going to fall down, starts having palpitations, becomes short of breath, starts shaking and sweating. She stated that she feels depressed and upset. She was talking in a very low monotonous voice. She stated her 19 year old son brought her to the hospital. Past history: she stated she was never in a psychiatric hospital before this particular time. She was never in a psychiatric treatment ever before." Hospital course: Upon admission to the unit patient was initially depressed and anxious and going through withdrawals. Patient was however directable and agreeable to commence treatment and signed adult voluntary form. Patient got along well with other patients on the unit and followed unit protocol. Patient was compliant with the medications and denied any side effects throughout hospital course. Patient was placed on Librium taper for alcohol withdrawal along with ciwa protocol with prn ativan. Patient was started on trazodone 50 mg daily at bedtime for ins omnia/mood. Patient was also started on Cymbalta and increased to a dose of 60 mg daily for mood/anxiety/pain. Patient spoke of her stressors and engaged in therapy both group and individual. Patient was also seen by medical team for history and physical exam. Throughout the course of the hospitalization patient gradually improved with regards to mood, anxiety, suicidal thoughts, withdrawal symptoms, sleep and became more future oriented. On the day of discharge patient denied any suicidal or homicidal ideations intent or plan denied any auditory or visual hallucinations. Patient endorsed wanting to live for her and children. The patient claims that her does have guns in the house however that they are locked away. Patient denied any paranoia and did not endorse any delusions. Patient does have a significant history of substance abuse and was counseled on abstaining from all substances including alcohol and marijuana. Patient was offered however declined inpatient substance-abuse rehab. Patient also declined any medications or outpatient treatment programs for alcohol use. Patient was also counseled on the medications and need for regular compliance and was encouraged to follow-up with their outpatient appointment for mental health and also for primary care. Prior to discharge a family meeting will be arranged by older adult social work specialist with patient's to answer any questions and ensure safety upon discharge. Hide Cooking Operator also spoke with patient's Scott Jung over the phone yesterday to discuss patients care and address concerns/answr questions (please refer to progress note on 02/06/21 for further details.) Mental status exam: General Appearance: Patient appears to be in a wheelchair, older than stated age is alert, directable, and cooperative. Patient is in no acute distress and has improved hygiene and grooming Behavior: Patient is calmly seated without any agitated behavior. Speech: Patient's speech is fluent and nonpressured. Soft tone Mood/Affect: Patient reports their mood is "better", affect is congruent Suicidality/Homicidality: Patient denies having any suicidal or homicidal ideation intent or plan. Perceptions: Patient denies any auditory or visual hallucinations. Though content/process: There is no evidence of any delusional thought content and thought process is linear and goal-directed. more future oriented Memory and concentration: AOX3, grossly intact for the purposes of this session. Can spell "WORLD" backwards correctly. Judgment and insight: improved with guarded prognosis Impression: Major depressive disorder, severe without psychotic features Anxiety disorder unspecified Alcohol dependence Nicotine dependence Plan: -Continue with discharge today as patient has improved and stabilized psychiatrically and is not currently an imminent threat to herself and/or others. Patient will remain at chronically elevated risk for harm to self and/or others due to her substance abuse. -Continue medications: Cymbalta 60 mg daily for mood/anxiety/pain, trazodone 50 mg daily at bedtime for insomnia/mood. Librium was discontinued prior to discharge. -Patient was counseled on the need for medication compliance and appropriate follow-up at mental health and also primary care for medical issues. Patient verbalized understanding and agreed. -Social work to arrange for and conduct family meeting to ensure safety upon discharge and answer any questions/concerns. Social work also to arrange for patients follow up appointments for psychiatric care along with follow up with primary care provider. -Patient counseled on abstaining from recreational drugs and marijuana and alcohol. Was informed/educated on the adverse effects on their physical and mental health. Patient verbally agreed and understood. Patient was offered substance abuse treatment however declined at this time. -Patient was instructed to return to the hospital or seek immediate medical care if their psychiatric or medical symptoms do worsen or reoccur. Allergies Allergy/AdvReac Type Severity Reaction Status Date / Time No Known Allergies Allergy Verified 02/03/21 16:[address] Glu mg/dL 85 02/04/21 11:04 Hemoglobin A1c 4.6 % (4.0-6.0) 02/04/21 11:04 Triglycerides 127 mg/dL (<150) 02/04/21 11:04 Cholesterol 218 mg/dL (<200) H 02/04/21 11:04 LDL Cholesterol, Calc 143 mg/dL (0-99) H 02/04/21 11:04 HDL Cholesterol 50 mg/dL (40-60) 02/04/21 11:04 Vital Signs Temp 97.8 F 02/07/21 07:17 Pulse 64 02/07/21 07:17 Resp 16 02/07/21 07:17 BP 80/48 02/07/21 07:17 Pulse Ox Patient Condition at Discharge: Stable Plan - Discharge Summary Discharge Rx Participant: No New Discharge Prescriptions: New traZODone HCL [Desyrel] 50 mg PO HS 30 Days tab Acetaminophen Tab [Tylenol] 1,000 mg PO Q6H PRN tab PRN Reason: Pain Or Fever > 100.5 DULoxetine HCL [Cymbalta] 60 mg PO DAILY 30 Days capsule. Nicotine 14Mg/24Hr Patch [Habitrol] 1 patch TRANSDERM DAILY 14 Days patch Multivitamins, Thera [Multivitamin (formulary)] 1 each PO DAILY 30 Days tab Continue Ibuprofen [Motrin Ib] 600 mg PO Q8H PRN PRN Reason: Pain Or Fever > 100.5 Discontinued Multivitamins, Thera [Multivitamin (formulary)] 1 tab PO DAILY Acetaminophen [Tylenol] 1,000 mg PO Q6H PRN PRN Reason: Pain Or Fever > 100.5 Discharge Medication List Ibuprofen [Motrin Ib] 600 mg PO Q8H PRN 01/30/21 [History] Acetaminophen Tab [Tylenol] 1,000 mg PO Q6H PRN tab 02/07/21 [Rx] DULoxetine HCL [Cymbalta] 60 mg PO DAILY 30 Days capsule. 02/07/21 [Rx] Multivitamins, Thera [Multivitamin (formulary)] 1 each PO DAILY 30 Days tab 02/07/21 [Rx] Nicotine 14Mg/24Hr Patch [Habitrol] 1 patch TRANSDERM DAILY 14 Days patch 02/07/21 [Rx] traZODone HCL [Desyrel] 50 mg PO HS 30 Days tab 02/07/21 [Rx] Follow up Appointment(s)/Referral(s): [facility] [Outside] - 02/14/21 12:30 pm (Anna Marie Rivero) Activity/Diet/Wound Care/Special Instructions: Activity and diet as tolerated. Avoid the use of street drugs and alcohol. Take all medications as prescribed. When you are in need of refills on your medications please contact your medical provider and/or outpatient psychiatrist to have this done. Please go to scheduled outpatient appointment for aftercare treatment. If symptoms return or become worse, call the crisis line at and/or go to the nearest emergency room for evaluation. Discharge Disposition: HOME SELF-CARE
== END 2021-02-07 12:45 | disposition home or self-care (01) | DRG 885 ==
LOC: 3MHU 16:05
PROVIDERS: ADMIT Psychiatry & Neurology Psychiatry; ATTEND Psychiatry & Neurology Psychiatry
DX: F33.2 Major depressive disorder, recurrent severe without psychotic features (principal); F10.231 Alcohol dependence with withdrawal delirium; R45.851 Suicidal ideations; F41.0 Panic disorder [episodic paroxysmal anxiety]; F17.200 Nicotine dependence, unspecified, uncomplicated; F43.10 Post-traumatic stress disorder, unspecified; G47.00 Insomnia, unspecified; M79.7 Fibromyalgia; R29.6 Repeated falls; Z79.899 Other long term (current) drug therapy; Z82.5 Family history of asthma and other chronic lower respiratory diseases
CPT/HCPCS: 80061; 83036

== ENCOUNTER 2021-02-25 12:16 | Inpatient (IN) | payer BC, OTHER ==
[2021-02-25] MEDS ORDERED: METOCLOPRAMIDE 5 MG/ML 2 ML VIAL IVP STA (12:34)
[2021-02-25] MEDS ORDERED: SODIUM CHLORIDE 0.9% 1,000 ML IV STA ×2 (12:34)
--- NOTE | 2021-02-25 13:10 | ED ---
Nausea/Vomiting/Diarrhea HPI - General Chief complaint: Nausea/Vomiting/Diarrhea Stated complaint: nausea/vomiting Time Seen by Provider: 02/25/21 12:16 Source: patient, EMS, RN notes reviewed Mode of arrival: EMS Limitations: no limitations - History of Present Illness Initial comments: This is a 41-year-old female was brought in by EMS because of 4 days of nausea vomiting decreased oral intake fatigue weakness bodyaches. She does have a history of alcoholism she states she last drank about 5 days ago. She had alcohol for a while. No diarrhea reported. He has of a headache also she states no complaints or modifying factors no trauma reported as complain some shortness of breath also she does have a history of COPD. She currently denies smoking. She was having nausea in spite of the medication given by paramedics. No other current complaints or modifying factors MD complaint: nausea, vomiting, other - Related Data Home Medications Medication Instructions Recorded Confirmed Ibuprofen [Motrin Ib] 600 mg PO Q8H PRN 01/30/21 02/25/21 Multivitamins, Thera [Multivitamin 1 tab PO DAILY 02/25/21 02/25/21 (formulary)] Previous Rx's Medication Instructions Recorded Acetaminophen Tab [Tylenol] 1,000 mg PO Q6H PRN tab 02/07/21 DULoxetine HCL [Cymbalta] 60 mg PO DAILY 30 Days capsule. 02/07/21 Nicotine 14Mg/24Hr Patch [Habitrol] 1 patch TRANSDERM DAILY 14 Days 02/07/21 patch traZODone HCL [Desyrel] 50 mg PO HS 30 Days tab 02/07/21 Allergies Allergy/AdvReac Type Severity Reaction Status Date / Time No Known Allergies Allergy Verified 02/25/21 13:06 Review of Systems ROS Statement: Those systems with pertinent positive or pertinent negative responses have been documented in the HPI. ROS Other: All systems not noted in ROS Statement are negative. Past Medical History Past Medical History: Asthma, COPD, Fibromyalgia, Memory Impairment Additional Past Medical History / Comment(s): freq nausea, elevated enzymes, bleeding with urination, sciatica, anemia, heart murmur as a child, hard to move arms and legs (1.5 years ago) History of Any Multi-Drug Resistant Organisms: None Reported Past Surgical History: No Surgical Hx Reported Past Anesthesia/Blood Transfusion Reactions: No Reported Reaction Additional Past Anesthesia/Blood Transfusion Reaction / Comment(s): never has had general anesthesia,has had epidural in past with labor. Past Psychological History: ADD/ADHD, Anxiety, Depression Smoking Status: Current some day smoker Past Alcohol Use History: Abuse, Daily, Heavy Past Drug Use History: Marijuana - Past Family History Mother Family Medical History: CVA/TIA, Fibromyalgia Additional Family Medical History / Comment(s): MTHR bleeding disorder, fibro myalgia, athritis; sents in brain Sister(s) Additional Family Medical History / Comment(s): "sticky platelet disorder" General Exam - General Exam Comments Initial Comments: This is a well-developed sec appearing female who is awake alert oriented 3 Limitations: no limitations General appearance: alert, lethargic Head exam: Present: atraumatic, normocephalic, normal inspection Eye exam: Present: normal appearance, PERRL, EOMI. Absent: scleral icterus, conjunctival injection, periorbital swelling ENT exam: Present: mucous membranes dry Neck exam: Present: normal inspection. Absent: tenderness, meningismus, lymphadenopathy Respiratory exam: Present: decreased breath sounds. Absent: respiratory distress, wheezes, rales, rhonchi, stridor Cardiovascular Exam: Present: normal rhythm, tachycardia, normal heart sounds. Absent: systolic murmur, diastolic murmur, rubs, gallop, clicks GI/Abdominal exam: Present: soft, normal bowel sounds. Absent: distended, tenderness, guarding, rebound, rigid Extremities exam: Present: normal inspection, full ROM, normal capillary refill. Absent: tenderness, pedal edema, joint swelling, calf tenderness Back exam: Present: normal inspection Neurological exam: Present: alert, oriented X3, CN II-XII intact Psychiatric exam: Present: normal affect, normal mood Skin exam: Present: warm, dry, intact, normal color. Absent: rash Course Vital Signs 02/25/21 02/25/21 12:18 13:56 Temperature 98.3 F Pulse Rate 115 H 104 H Respiratory 16 17 Rate Blood Pressure 148/100 139/107 O2 Sat by Pulse 98 99 Oximetry - Reevaluation(s) Reevaluation #1: 02/25/21 14:46 Patient states she was feeling somewhat improved after IV fluids. She also did admit she been having chest pain in addition to her other complaints. Medical Decision Making - Medical Decision Making I did discuss findings with the patient as well as Dr. More the patient be admitted with consultation by cardiology. No chest pain at this time. Nausea has improved. Additionally the patient received IV bicarb or CO2 is less than 5. Additionally the patient'sconsistent with alcohol withdrawal. Patient will also be started on a banana bag. She get IV magnesium. - Lab Data Result diagrams: 02/25/21 12:49 02/25/21 12:49 Lab Results 02/25/21 02/25/21 02/25/21 Range/Units 12:49 12:49 12:49 WBC 30.9 H (3.8-10.6) k/uL RBC 4.69 (3.80-5.40) m/uL Hgb 17.5 H (11.4-16.0) gm/dL Hct 54.2 H (34.0-46.0) % MCV 115.7 H D (80.0-100.0) fL MCH 37.3 H (25.0-35.0) pg MCHC 32.3 (31.0-37.0) g/dL RDW 15.0 (11.5-15.5) % Plt Count 335 (150-450) k/uL MPV 9.4 Neutrophils % 94 % Lymphocytes % 2 % Monocytes % 2 % Eosinophils % 1 % Basophils % 0 % Neutrophils # 29.1 H (1.3-7.7) k/uL Lymphocytes # 0.7 L (1.0-4.8) k/uL Monocytes # 0.7 (0-1.0) k/uL Eosinophils # 0.2 (0-0.7) k/uL Basophils # 0.0 (0-0.2) k/uL Manual Slide Review Performed Macrocytosis Marked A Sodium (137-145) mmol/L Potassium (3.5-5.1) mmol/L Chloride (98-107) mmol/L Carbon Dioxide (22-30) mmol/L Anion Gap mmol/L BUN (7-17) mg/dL Creatinine (0.52-1.04) mg/dL Est GFR (CKD-EPI)AfAm (>60 ml/min/1.73 sqM) Est GFR (CKD-EPI)NonAf (>60 ml/min/1.73 sqM) Glucose (74-99) mg/dL Plasma Lactic Acid Luis Enrique (0.7-2.0) mmol/L Calcium (8.4-10.2) mg/dL Magnesium (1.6-2.3) mg/dL Total Bilirubin (0.2-1.3) mg/dL AST (14-36) U/L ALT (4-34) U/L Alkaline Phosphatase (38-126) U/L Creatine Kinase (30-135) U/L Troponin I (0.000-0.034) ng/mL Total Protein (6.3-8.2) g/dL Albumin (3.5-5.0) g/dL Amylase (30-110) U/L Lipase (23-300) U/L Urine Color Yellow Urine Appearance Clear (Clear) Urine pH 6.5 (5.0-8.0) Ur Specific [place] 1.019 (1.001-1.035) Urine Protein 3+ H (Negative) Urine Glucose (UA) Negative (Negative) Urine Ketones 4+ H (Negative) Urine Blood Small H (Negative) Urine Nitrite Negative (Negative) Urine Bilirubin 2+ H (Negative) Urine Urobilinogen 6.0 (<2.0) mg/dL Ur Leukocyte Esterase Negative (Negative) Urine RBC <1 (0-5) /hpf Urine WBC 2 (0-5) /hpf Ur Squamous Epith Cells 2 (0-4) /hpf Hyaline Casts 15 H (0-2) /lpf Urine Mucus Rare H (None) /hpf Urine HCG, Qual Not Detected (Not Detectd) Coronavirus (PCR) (Not Detectd) 02/25/21 02/25/21 02/25/21 Range/Units 12:49 12:49 12:49 WBC (3.8-10.6) k/uL RBC (3.80-5.40) m/uL Hgb (11.4-16.0) gm/dL Hct (34.0-46.0) % MCV (80.0-100.0) fL MCH (25.0-35.0) pg MCHC (31.0-37.0) g/dL RDW (11.5-15.5) % Plt Count (150-450) k/uL MPV Neutrophils % % Lymphocytes % % Monocytes % % Eosinophils % % Basophils % % Neutrophils # (1.3-7.7) k/uL Lymphocytes # (1.0-4.8) k/uL Monocytes # (0-1.0) k/uL Eosinophils # (0-0.7) k/uL Basophils # (0-0.2) k/uL Manual Slide Review Macrocytosis Sodium 132 L (137-145) mmol/L Potassium 4.3 (3.5-5.1) mmol/L Chloride 103 (98-107) mmol/L Carbon Dioxide <5 L* (22-30) mmol/L Anion Gap mmol/L BUN 9 (7-17) mg/dL Creatinine 0.63 (0.52-1.04) mg/dL Est GFR (CKD-EPI)AfAm >90 (>60 ml/min/1.73 sqM) Est GFR (CKD-EPI)NonAf >90 (>60 ml/min/1.73 sqM) Glucose 172 H (74-99) mg/dL Plasma Lactic Acid Luis Enrique 1.6 (0.7-2.0) mmol/L Calcium 10.7 H (8.4-10.2) mg/dL Magnesium 1.5 L (1.6-2.3) mg/dL Total Bilirubin 0.8 (0.2-1.3) mg/dL AST 20 (14-36) U/L ALT 15 (4-34) U/L Alkaline Phosphatase 165 H (38-126) U/L Creatine Kinase 37 (30-135) U/L Troponin I 0.071 H* (0.000-0.034) ng/mL Total Protein 8.9 H (6.3-8.2) g/dL Albumin 5.1 H (3.5-5.0) g/dL Amylase 76 (30-110) U/L Lipase 93 (23-300) U/L Urine Color Urine Appearance (Clear) Urine pH (5.0-8.0) Ur Specific [place] (1.001-1.035) Urine Protein (Negative) Urine Glucose (UA) (Negative) Urine Ketones (Negative) Urine Blood (Negative) Urine Nitrite (Negative) Urine Bilirubin (Negative) Urine Urobilinogen (<2.0) mg/dL Ur Leukocyte Esterase (Negative) Urine RBC (0-5) /hpf Urine WBC (0-5) /hpf Ur Squamous Epith Cells (0-4) /hpf Hyaline Casts (0-2) /lpf Urine Mucus (None) /hpf Urine HCG, Qual (Not Detectd) Coronavirus (PCR) (Not Detectd) 02/25/21 Range/Units 12:49 WBC (3.8-10.6) k/uL RBC (3.80-5.40) m/uL Hgb (11.4-16.0) gm/dL Hct (34.0-46.0) % MCV (80.0-100.0) fL MCH (25.0-35.0) pg MCHC (31.0-37.0) g/dL RDW (11.5-15.5) % Plt Count (150-450) k/uL MPV Neutrophils % % Lymphocytes % % Monocytes % % Eosinophils % % Basophils % % Neutrophils # (1.3-7.7) k/uL Lymphocytes # (1.0-4.8) k/uL Monocytes # (0-1.0) k/uL Eosinophils # (0-0.7) k/uL Basophils # (0-0.2) k/uL Manual Slide Review Macrocytosis Sodium (137-145) mmol/L Potassium (3.5-5.1) mmol/L Chloride (98-107) mmol/L Carbon Dioxide (22-30) mmol/L Anion Gap mmol/L BUN (7-17) mg/dL Creatinine (0.52-1.04) mg/dL Est GFR (CKD-EPI)AfAm (>60 ml/min/1.73 sqM) Est GFR (CKD-EPI)NonAf (>60 ml/min/1.73 sqM) Glucose (74-99) mg/dL Plasma Lactic Acid Luis Enrique (0.7-2.0) mmol/L Calcium (8.4-10.2) mg/dL Magnesium (1.6-2.3) mg/dL Total Bilirubin (0.2-1.3) mg/dL AST (14-36) U/L ALT (4-34) U/L Alkaline Phosphatase (38-126) U/L Creatine Kinase (30-135) U/L Troponin I (0.000-0.034) ng/mL Total Protein (6.3-8.2) g/dL Albumin (3.5-5.0) g/dL Amylase (30-110) U/L Lipase (23-300) U/L Urine Color Urine Appearance (Clear) Urine pH (5.0-8.0) Ur Specific [place] (1.001-1.035) Urine Protein (Negative) Urine Glucose (UA) (Negative) Urine Ketones (Negative) Urine Blood (Negative) Urine Nitrite (Negative) Urine Bilirubin (Negative) Urine Urobilinogen (<2.0) mg/dL Ur Leukocyte Esterase (Negative) Urine RBC (0-5) /hpf Urine WBC (0-5) /hpf Ur Squamous Epith Cells (0-4) /hpf Hyaline Casts (0-2) /lpf Urine Mucus (None) /hpf Urine HCG, Qual (Not Detectd) Coronavirus (PCR) Not Detected (Not Detectd) - EKG Data -: EKG Interpreted by Me Rate: normal EKG Comments: Sinus rhythm was 96 CO interval 134 QRS duration 60 QT since QTC 296/373 possible left atrial large (compared with EKG dated 01/31/20 10 acute changes - Radiology Data Radiology results: report reviewed (Imaging reviewed no acute findings.), image reviewed Critical Care Time Critical Care Time: Yes Total Critical Care Time: 31 Critical Care Time: Critical care time included initial presentation with history physical labs x- rays reevaluation patient several occasions. Discussed with patient regarding findings discussed with Dr. Richards review of old charting was available documentation of the above and admission orders. Disposition Clinical Impression: Acute gastritis, Elevated troponin, Metabolic acidosis, Dehydration, Hypomag nesemia syndrome, History of alcohol abuse, Chest pain Disposition: ADMITTED IP TO THIS HOSP Condition: Fair Referrals: Henok More MD [Primary Care Provider] - 1-2 days
[2021-02-25 13:31] LABS: Basophils % (A) 0 %; Eosinophils # (A) 0.2 k/uL (0-0.7); Eosinophils % (A) 1 %; HCT 54.2 % (34.0-46.0); HGB 17.5 gm/dL (11.4-16.0); Lymphocytes # (A) 0.7 k/uL (1.0-4.8); Lymphocytes % (A) 2 %; MCH 37.3 pg (25.0-35.0); MCHC 32.3 g/dL (31.0-37.0); Macrocytosis Marked; Mean Platelet Volume 9.4; Monocytes # (A) 0.7 k/uL (0-1.0); Monocytes % (A) 2 %; Neutrophils # (A) 29.1 k/uL (1.3-7.7); Neutrophils % (A) 94 %; Platelet Count 335 k/uL (150-450); RBC 4.69 m/uL (3.80-5.40); WBC 30.9 k/uL (3.8-10.6)
[2021-02-25 13:33] LABS: Appearance,Urine Clear (Clear); Bilirubin,Urine 2+ (Negative); Blood,Urine Small (Negative); Color,Urine Yellow; Glucose,Urine (UA) Negative (Negative); Hyaline Casts,Urine 15 /lpf (0-2); Ketones,Urine 4+ (Negative); Leukocyte Esterase,Urine Negative (Negative); Mucus,Urine Rare /hpf; Nitrite,Urine Negative (Negative); PH, Urine 6.5 (5.0-8.0); Protein,Urine 3+ (Negative); RBC,Urine <1 /hpf (0-5); Specific Gravity,Urine 1.019 (1.001-1.035); Squamous Epithelial Cell,Urine 2 /hpf (0-4); WBC,Urine 2 /hpf (0-5)
--- NOTE | 2021-02-25 13:33 | XR ---
EXAMINATION TYPE: XR chest 2V DATE OF EXAM: 02/25/2021 COMPARISON: Chest x-ray 01/30/2021 HISTORY: Nausea vomiting diarrhea, abdominal pain TECHNIQUE: Frontal and lateral views of the chest are obtained. FINDINGS: There is no focal air space opacity, pleural effusion, or pneumothorax seen. The cardiac silhouette size is within normal limits. There is elevation of right hemidiaphragm. The osseous str uctures are intact. IMPRESSION: No acute cardiopulmonary process.
--- NOTE | 2021-02-25 13:34 | XR ---
KUB HISTORY: Nausea vomiting diarrhea, abdominal pain Frontal KUB and 2 images There is no bowel obstruction or pneumoperitoneum. There is a mild spinal curvature. No pathologic ca lcification. Probable phleboliths in the pelvis. There are overlying artifacts. IMPRESSION: Nonobstructed bowel gas pattern
[2021-02-25 13:37] LABS: ALT 15 U/L (4-34); AST 20 U/L (14-36); African American GFR (CKD) >90 (>60 ml/min/1.73 sqM); Albumin 5.1 g/dL (3.5-5.0); Alkaline Phosphatase 165 U/L (38-126); Amylase 76 U/L (30-110); Blood Urea Nitrogen 9 mg/dL (7-17); Calcium 10.7 mg/dL (8.4-10.2); Chloride 103 mmol/L (98-107); Creatine Kinase 37 U/L (30-135); Glucose 172 mg/dL (74-99); Lipase 93 U/L (23-300); Magnesium 1.5 mg/dL (1.6-2.3); Non-African American GFR(CKD) >90 (>60 ml/min/1.73 sqM); Potassium 4.3 mmol/L (3.5-5.1); Sodium 132 mmol/L (137-145); Total Bilirubin 0.8 mg/dL (0.2-1.3); Total Protein 8.9 g/dL (6.3-8.2)
[2021-02-25 13:39] LABS: MCV 115.7 fL (80.0-100.0)
[2021-02-25 13:44] LABS: Carbon Dioxide <5 mmol/L (22-30)
[2021-02-25] MEDS ORDERED: SODIUM BICARB 8.4% 50 ML SYR (1 MEQ/ML) IV STA ×2 (13:47→14:21)
[2021-02-25] MEDS ORDERED: MAGNESIUM SULFATE-D5W PMX 1 GM in DEXTROSE/WATER 1 100ML.BAG IVPB ONE (13:47)
[2021-02-25] MEDS ORDERED: HEPARIN SODIUM 1,000 UN/ML (10ML VL) IV ONE (14:51)
[2021-02-25] MEDS ORDERED: THIAMINE 100 MG/ML 2 ML VIAL IM STA (14:57)
[2021-02-25] MEDS ORDERED: LORazepam 2 MG/ML INJ IV PRN (14:57)
[2021-02-25] MEDS ORDERED: IBUPROFEN 200 MG TAB PO PRN (14:57)
[2021-02-25] MEDS ORDERED: SODIUM CHLORIDE 0.9% 1,000 ML with MVI, ADULT NO.4 WITH VIT K 10 ML, THIAMINE 100 MG, F... IV ONE ×4 (15:15)
[2021-02-25] MEDS: HEPARIN SOD,PORK IN 0.45% NACL 25,000 UNIT in 0.45% NACL 1 250ML.BAG IV SCH (15:28)
[2021-02-25] MEDS: THIAMINE 100 MG TAB PO SCH (17:43)
[2021-02-25] MEDS: NITROGLYCERIN OINT 1 INCH/GM PACKET TOPICAL SCH (19:52)
[2021-02-25] MEDS: SODIUM CHLORIDE 0.9% 1,000 ML IV SCH (19:52)
[2021-02-25] MEDS ORDERED: MAG HYDROX/AL HYDROX/SIMETH 30 ML, HYOSCYAMINE ELIXIR 10 ML, LIDOCAINE VISCOUS 2% 10 ML PO ONE ×3 (20:00)
[2021-02-25] MEDS: LORazepam 2 MG/ML INJ IV PRN ×2 (20:06→22:48)
[2021-02-25] MEDS: traZODone HCL 50 MG TAB PO SCH (21:58)
[2021-02-25] MEDS: ACETAMINOPHEN TAB 500 MG TAB PO PRN (22:47)
[2021-02-25] MEDS ORDERED: HEPARIN SODIUM 1,000 UN/ML (10ML VL) IV PRN (23:16)
[2021-02-26] MEDS: NITROGLYCERIN OINT 1 INCH/GM PACKET TOPICAL SCH ×4 (04:23→17:35)
[2021-02-26] MEDS: LORazepam 2 MG/ML INJ IV PRN ×4 (04:24→23:28)
[2021-02-26 06:22] LABS: Cholesterol 267 mg/dL (<200); HDL Cholesterol 48 mg/dL (40-60); LDL Cholesterol,Calculated 164 mg/dL (0-99); Triglycerides 275 mg/dL (<150)
[2021-02-26] MEDS: THIAMINE 100 MG TAB PO SCH ×2 (06:41→17:35)
[2021-02-26] MEDS: SODIUM CHLORIDE 0.9% 1,000 ML IV SCH ×3 (06:48→17:49)
[2021-02-26] MEDS: DULoxetine HCL 60 MG CAPSULE.DR PO SCH (08:00)
[2021-02-26] MEDS: ASPIRIN 325 MG TAB PO SCH (08:00)
[2021-02-26] MEDS: MULTIVITAMINS, THERA 1 EACH TAB PO SCH (08:00)
[2021-02-26] MEDS: NICOTINE 14MG/24HR PATCH TRANSDERM SCH (08:00)
[2021-02-26] MEDS: HEPARIN SOD,PORK IN 0.45% NACL 25,000 UNIT in 0.45% NACL 1 250ML.BAG IV SCH (15:09)
--- NOTE | 2021-02-26 17:45 | P.CRDCN ---
History of Present Illness History of present illness: HISTORY OF PRESENTING ILLNESS Patient is a pleasant 41-year-old female with history of alcohol is him, COPD, prior tobacco abuse, fibromyalgia, heart murmur since childhood who presents secondary to nausea, vomiting, shortness breath, abdominal pain and chest pain over the last 5 days. She states she has not eaten much or this time. She was evaluated approximate 3 weeks ago for alcohol is him and states she previously drank approximately a pint a day however has not drank since then. She denies any indigestion, or exposure. No fevers or chills. She admits to a history of having a murmur as a child however states she has never seen a special needs nanny and does not believe she had an echocardiogram performed in the past. She states prior to 5 days ago she felt fairly well and denies any chest pain or pressure. Her chest pain felt like a pressure sensation over the front of her chest. EKG was performed which showed normal sinus rhythm, normal axis, no significant ST-T wave abnormalities. Chest x-ray showed no acute process. Blood work showed multiple abnormalities including white blood cell count 30.9, hemoglobin 17.5, MCV 115, platelets 335, sodium 132, bicarb less than 5, BUN 9, creatinine 0.6, calcium 10.7, magnesium 1.5, albumin 5.1, troponin 0.07, 0.15, 0.12, tri glycerides 275, total cholesterol 267, LDL 164, amylase 76, lipase 93, villarreal virus not detected. Patient was placed on IV fluids and home medications. She was placed on a heparin drip. She is fairly somnolent most of the day however now arousable and states she still feels nauseous with some abdominal pain and chest pain. She has had sinus tachycardia with heart rates 110s and 120s with blood pressures predominantly controlled. REVIEW OF SYSTEMS At the time of my exam: CONSTITUTIONAL: Denies fever or chills. CARDIOVASCULAR: + chest pain, +shortness of breath, no orthopnea, PND or palpita tions. RESPIRATORY: Denies cough. GASTROINTESTINAL: +abdominal pain, no diarrhea, constipation, +nausea, +vomiting. MUSCULOSKELETAL: Denies myalgias. NEUROLOGIC: Denies numbness, tingling or weakness. ENDOCRINE: Denies fatigue, weight change, polydipsia or polyurina. GENITOURINARY: Denies burning, hematuria or urgency with micturation. HEMATOLOGIC: Denies history of anemia or bleeding. PHYSICAL EXAMINATION Vital signs reviewed. CONSTITUTIONAL: No apparent distress, ill appearing HEENT: Head is normocephalic. Pupils are equal, round. Sclerae anicteric. Mucous membranes of the mouth are moist. No JVD. No carotid bruit. CHEST EXAMINATION: Lungs are clear to auscultation. No chest wall tenderness is noted on palpation or with deep breathing. HEART EXAMINATION: Tachycardic rate and regular rhythm. S1, S2 heard. +diffuse 4/6 systolic murmur, no gallops or rub. ABDOMEN: Soft, nontender. Positive bowel sounds. EXTREMITIES: 2+ peripheral pulses, no lower extremity edema and no calf tender ness. NEUROLOGIC EXAMINATION: Patient is awake, alert and oriented x3. ASSESSMENT 1. Elevated troponin of unclear significance, suspect type II mechanism secondary to multiple derangements however she is having chest pain 2. Substernal chest pain 3. Severe acidosis, bicarb less than 5 4. Shortness breath, likely component of tachypnea related to metabolic acidosis 5. Systolic murmur, history of murmur as a child and denies history of echo in the past. Rule out congenital heart disease 6. Alcoholism, status post abstinence since 02/06/2021 7. Fibromyalgia, anxiety, depression 8. Sinus tachycardia, likely reactive 9. Leukocytosis, rule out sepsis versus other 10. Nausea, vomiting, abdominal pain PLAN Patient with main presentation of nausea, vomiting, abdominal pain, severe meta bolic derangements including metabolic acidosis, leukocytosis and electrolyte abnormalities. Chest pain somewhat atypical and suspect type II mechanism however she is having chest pain and we will check a 2-D echo. Additionally evaluate for any failure heart disease or congenital heart disease with a significant murmur on exam. Sinus tachycardia likely reactive to other processes and continue to monitor. Past Medical History Past Medical History: Asthma, COPD, Fibromyalgia, Memory Impairment Additional Past Medical History / Comment(s): freq nausea, elevated enzymes, bleeding with urination, sciatica, anemia, heart murmur as a child, hard to move arms and legs (1.5 years ago) History of Any Multi-Drug Resistant Organisms: None Reported Past Surgical History: No Surgical Hx Reported Past Anesthesia/Blood Transfusion Reactions: No Reported Reaction Additional Past Anesthesia/Blood Transfusion Reaction / Comment(s): never has had general anesthesia,has had epidural in past with labor. Past Psychological History: ADD/ADHD, Anxiety, Depression Smoking Status: Current some day smoker Past Alcohol Use History: Abuse, Daily, Heavy Additional Past Alcohol Use History / Comment(s): started smoking at age 13, smokes a hakf a pack a day; states drinks daily but had reduced since last hospital visit. Past Drug Use History: Marijuana - Past Family History Mother Family Medical History: CVA/TIA, Fibromyalgia Additional Family Medical History / Comment(s): MTHR bleeding disorder, fibromyalgia, athritis; sents in brain Sister(s) Additional Family Medical History / Comment(s): "sticky platelet disorder" Medications and Allergies Home Medications Medication Instructions Recorded Confirmed Type Ibuprofen [Motrin Ib] 600 mg PO Q8H PRN 01/30/21 02/25/21 History Acetaminophen Tab [Tylenol] 1,000 mg PO Q6H PRN tab 02/07/21 02/25/21 Rx DULoxetine HCL [Cymbalta] 60 mg PO DAILY 30 Days capsule. 02/07/21 02/25/21 Rx Nicotine 14Mg/24Hr Patch [Habitrol] 1 patch TRANSDERM DAILY 14 Days 02/07/21 02/25/21 Rx patch traZODone HCL [Desyrel] 50 mg PO HS 30 Days tab 02/07/21 02/25/21 Rx Multivitamins, Thera [Multivitamin 1 tab PO DAILY 02/25/21 02/25/21 History (formulary)] Allergies Allergy/AdvReac Type Severity Reaction Status Date / Time No Known Allergies Allergy Verified 02/25/21 13:06 Physical Exam Vitals: Vital Signs Temp Pulse Pulse Resp BP BP Pulse Ox 02/26/21 16:01 98.8 F 120 H 16 114/70 98 02/26/21 13:11 120 H 18 02/26/21 12:09 98.7 F 120 H 18 143/69 100 02/26/21 08:00 118 H 18 02/26/21 07:59 97.8 F 118 H 18 132/72 98 02/26/21 04:21 14 02/26/21 04:00 97.8 F 113 H 18 133/77 100 02/26/21 01:00 120 H 18 96/59 99 02/25/21 22:36 103 H 18 144/92 100 02/25/21 20:00 110 H 20 125/70 99 02/25/21 18:59 121 H 16 143/85 98 Intake and Output 02/26/21 02/26/21 02/26/21 06:59 14:59 22:59 Intake Total 146.563 103.437 Balance 146.563 103.437 Intake: Intake, IV Titration 146.563 103.437 Amount Heparin Sod,Pork in 0.45% 146.563 103.437 NaCl 25,000 unit In 0.45 % NaCl 1 250ml.bag @ 12 UNITS/KG/HR 8.709 mls/hr IV .Q24H [facility] Rx#: [id number] Oral 0 Other: Voiding Method Bedpan Bedpan # Voids 1 Weight 73 kg Results 02/25/21 12:49 02/25/21 12:49 Cardiac Enzymes 02/25/21 Range/Units 21:28 Troponin I 0.123 H* (0.000-0.034) ng/mL Coagulation 02/25/21 02/26/21 02/26/21 Range/Units 21:28 05:39 12:51 APTT 28.0 41.3 H 43.3 H (22.0-30.0) sec Lipids 02/26/21 Range/Units 05:39 Triglycerides 275 H (<150) mg/dL Cholesterol 267 H (<200) mg/dL HDL Cholesterol 48 (40-60) mg/dL Current Medications Generic Name Dose Route Start Last Admin Trade Name Freq PRN Reason Stop Dose Admin Acetaminophen 1,000 mg 02/25/21 14:57 02/25/21 22:47 Acetaminophen Tab 500 Mg Tab PO 1,000 mg Q6H PRN Administration Pain or Fever > 100.5 Aspirin 325 mg 02/26/21 09:00 02/26/21 08:00 Aspirin 325 Mg Tab PO 325 mg DAILY [facility] Administration Duloxetine HCl 60 mg 02/26/21 09:00 02/26/21 08:00 Duloxetine Hcl 60 Mg Capsule.Dr PO 60 mg DAILY [facility] Administration Heparin Sodium (Porcine) 0 unit 02/25/21 23:16 02/25/21 23:23 Heparin Sodium 1,000 Un/Ml (10ml Vl) IV 3,625 unit PER PROTOCOL PRN Administration Low PTT Protocol Sodium Chloride 1,000 mls @ 100 mls/hr 02/25/21 15:00 02/26/21 12:11 Saline 0.9% IV 100 mls/hr .Q10H [facility] Administration Heparin Sodium/Sodium Chloride 250 mls @ 8.709 mls/hr 02/25/21 15:00 02/26/21 15:09 25,000 unit/ Sodium Chloride IV 19 units/kg/hr .Q24H [facility] 13.789 mls/hr Administration Protocol 12 UNITS/KG/HR Ibuprofen 600 mg 02/25/21 15:02 Ibuprofen 600 Mg Tab PO Q8H PRN Pain or Fever > 100.5 Lorazepam 1 mg 02/25/21 14:57 02/26/21 06:41 Lorazepam 2 Mg/Ml Inj IV 1 mg Q2HR PRN Administration CIWA 8 or 9 Lorazepam 1 mg 02/25/21 14:57 02/25/21 22:48 Lorazepam 2 Mg/Ml Inj IV 1 mg Q1HR PRN Administration CIWA 10 to 15 Lorazepam 2 mg 02/25/21 14:57 Lorazepam 2 Mg/Ml Inj IV 02/27/21 14:58 Q10M PRN CIWA 16 or higher Multivitamins 1 each 02/26/21 09:00 02/26/21 08:00 Multivitamins, Thera 1 Each Tab PO 1 each DAILY [facility] Administration Nicotine 1 patch 02/26/21 09:00 02/26/21 08:00 Nicotine 14mg/24hr Patch TRANSDERM 1 patch DAILY [facility] Administration Nitroglycerin 1 inch 02/25/21 18:00 02/26/21 17:35 Nitroglycerin Oint 1 Inch/Gm Packet TOPICAL 1 inch Q6HR [facility] Administration Ondansetron HCl 4 mg 02/26/21 17:39 Ondansetron 4 Mg/2 Ml Vial IVP Q6HR PRN Nausea And Vomiting Thiamine HCl 100 mg 02/25/21 17:30 02/26/21 17:35 Thiamine 100 Mg Tab PO 100 mg BID-W/MEALS [facility] Administration Trazodone HCl 50 mg 02/25/21 21:00 02/25/21 21:58 Trazodone Hcl 50 Mg Tab PO 50 mg HS [facility] Administration Intake and Output 02/26/21 02/26/21 02/26/21 06:59 14:59 22:59 Intake Total 146.563 103.437 Balance 146.563 103.437 Intake: Intake, IV Titration 146.563 103.437 Amount Heparin Sod,Pork in 0.45% 146.563 103.437 NaCl 25,000 unit In 0.45 % NaCl 1 250ml.bag @ 12 UNITS/KG/HR 8.709 mls/hr IV .Q24H [facility] Rx#: [id number] Oral 0 Other: Voiding Method Bedpan Bedpan # Voids 1 Weight 73 kg 02/25/21 12:49 02/25/21 12:49
[2021-02-26] MEDS: ACETAMINOPHEN TAB 500 MG TAB PO PRN ×2 (17:48→23:27)
[2021-02-26] MEDS: ONDANSETRON 4 MG/2 ML VIAL IVP PRN ×2 (17:48→23:29)
[2021-02-26 17:55] LABS: ABG Base Excess -3.3 mmol/L; ABG HCO3 21 mmol/L (21-25); ABG Oxygen Saturation 97.9 % (94-97); ABG PCO2 30 mmHg (35-45); ABG PH 7.45 (7.35-7.45); ABG PO2 77 mmHg (83-108); ABG TCO2 22 mmol/L (19-24); Allen Test Performed? Yes
[2021-02-26 18:17] LABS: Basophils # (A) 0.1 k/uL (0-0.2); Basophils % (A) 0 %; Eosinophils # (A) 0.1 k/uL (0-0.7); Eosinophils % (A) 0 %; HCT 41.5 % (34.0-46.0); HGB 14.8 gm/dL (11.4-16.0); Lymphocytes # (A) 1.2 k/uL (1.0-4.8); Lymphocytes % (A) 6 %; MCH 40.6 pg (25.0-35.0); MCHC 35.6 g/dL (31.0-37.0); MCV 114.2 fL (80.0-100.0); Macrocytosis Marked; Mean Platelet Volume 8.5; Monocytes # (A) 0.8 k/uL (0-1.0); Monocytes % (A) 4 %; Neutrophils # (A) 18.6 k/uL (1.3-7.7); Neutrophils % (A) 89 %; Platelet Count 183 k/uL (150-450); RBC 3.63 m/uL (3.80-5.40); RDW 14.5 % (11.5-15.5); WBC 20.9 k/uL (3.8-10.6)
[2021-02-26 18:28] LABS: African American GFR (CKD) >90 (>60 ml/min/1.73 sqM); Anion Gap 12 mmol/L; Blood Urea Nitrogen 4 mg/dL (7-17); Calcium 8.6 mg/dL (8.4-10.2); Carbon Dioxide 20 mmol/L (22-30); Chloride 103 mmol/L (98-107); Glucose 103 mg/dL (74-99); Non-African American GFR(CKD) >90 (>60 ml/min/1.73 sqM); Sodium 135 mmol/L (137-145)
[2021-02-26 18:34] LABS: Potassium 2.9 mmol/L (3.5-5.1)
[2021-02-26] MEDS ORDERED: Potassium Replacement Protocol 1 EACH MISC MISCELLANE PRN (18:35)
[2021-02-26] MEDS: POTASSIUM CHLORIDE ER 20 MEQ TAB.ER PO SCH ×3 (18:46→21:41)
[2021-02-26] MEDS: traZODone HCL 50 MG TAB PO SCH (19:54)
[2021-02-27] MEDS ORDERED: Potassium Replacement Protocol 1 EACH MISC MISCELLANE PRN ×3 (01:37→11:27)
[2021-02-27] MEDS: NITROGLYCERIN OINT 1 INCH/GM PACKET TOPICAL SCH ×4 (01:43→16:56)
[2021-02-27] MEDS: POTASSIUM CHLORIDE ER 20 MEQ TAB.ER PO SCH ×5 (02:11→13:05)
[2021-02-27] MEDS: NICOTINE 14MG/24HR PATCH TRANSDERM SCH (06:40)
[2021-02-27] MEDS: THIAMINE 100 MG TAB PO SCH ×2 (06:40→17:15)
[2021-02-27] MEDS: MULTIVITAMINS, THERA 1 EACH TAB PO SCH (08:25)
[2021-02-27] MEDS: ASPIRIN 325 MG TAB PO SCH (08:25)
[2021-02-27] MEDS: DULoxetine HCL 60 MG CAPSULE.DR PO SCH (08:25)
[2021-02-27] MEDS: SODIUM CHLORIDE 0.9% 1,000 ML IV SCH ×2 (08:32→16:56)
[2021-02-27] MEDS: IBUPROFEN 600 MG TAB PO PRN (08:33)
--- NOTE | 2021-02-27 11:04 | ECHOF ---
Referral Reason:chest pain MEASUREMENTS -------- HEIGHT: 170.2 cm WEIGHT: 74.8 kg BP: 121/85 RVIDd: 1.9 cm (< 3.3) IVSd: 1.2 cm (0.6 - 1.1) LVIDd: 3.8 cm (3.9 - 5.3) LVPWd: 1.3 cm (0.6 - 1.1) IVSs: 1.8 cm LVIDs: 2.3 cm LVPWs: 1.7 cm LAESV Index (A-L): 22.88 ml/m Ao Diam: 3.0 cm (2.0 - 3.7) AV Cusp: 2.2 cm (1.5 - 2.6) MV EXCURSION: 21.315 mm (> 18.000) MV EF SLOPE: 52 mm/s (70 - 150) EPSS: 0.2 cm MV E Mani: 0.81 m/s MV DecT: 220 ms MV A Mani: 0.99 m/s MV E/A Ratio: 0.82 RAP: 5.00 mmHg RVSP: 18.50 mmHg FINDINGS -------- Sinus rhythm. This was a technically adequate study. The left ventricular size is normal. There is mild concentric left ventricular hypertrophy. Overa ll left ventricular systolic function is normal with, an EF between 55 - 60 %. The diastolic fillin g pattern is normal for the age of the patient 13.65. The right ventricle is normal in size. Normal LA size by volume 22+/-6 ml/m2. The right atrial size is normal. Interatrial and interventricular septum intact. The aortic valve is trileaflet, and appears structurally normal. No aortic stenosis or regurgitation. The mitral valve is normal. Mild mitral regurgitation is present. The tricuspid valve appears structurally normal. Mild tricuspid regurgitation present. Right vent ricular systolic pressure is normal at < 35 mmHg. The right ventricular systolic pressure, as measu red by Doppler, is 18.50mmHg. Trace/mild (physiologic) pulmonic regurgitation. The aortic root size is normal. IVC Not well visulized. There is no pericardial effusion. CONCLUSIONS -------- 1. There is mild concentric left ventricular hypertrophy. 2. Overall left ventricular systolic function is normal with, an EF between 55 - 60 %. 3. The diastolic filling pattern is normal for the age of the patient 13.65 4. Normal LA size by volume 22+/-6 ml/m2. 5. The aortic valve is trileaflet, and appears structurally normal. No aortic stenosis or regurgitati on. 6. Mild mitral regurgitation is present. 7. Mild tricuspid regurgitation present. 8. Trace/mild (physiologic) pulmonic regurgitation. FARM EQUIPMENT ENGINEER: Nicolle Umaña RDCS
[2021-02-27 11:45] LABS: Basophils % (A) 0 %; Eosinophils # (A) 0.2 k/uL (0-0.7); Eosinophils % (A) 1 %; HCT 37.5 % (34.0-46.0); Lymphocytes # (A) 1.7 k/uL (1.0-4.8); Lymphocytes % (A) 13 %; MCH 38.4 pg (25.0-35.0); MCHC 34.6 g/dL (31.0-37.0); Macrocytosis Marked; Mean Platelet Volume 9.4; Monocytes # (A) 0.5 k/uL (0-1.0); Monocytes % (A) 4 %; Neutrophils # (A) 10.6 k/uL (1.3-7.7); Neutrophils % (A) 81 %; Platelet Count 172 k/uL (150-450); RBC 3.38 m/uL (3.80-5.40); RDW 14.2 % (11.5-15.5)
[2021-02-27] MEDS: HEPARIN SOD,PORK IN 0.45% NACL 25,000 UNIT in 0.45% NACL 1 250ML.BAG IV SCH (16:33)
--- NOTE | 2021-02-27 18:02 | P.PN ---
Subjective Progress Note Date: 02/27/21 This is a 41-year-old female with history of alcohol is him, COPD, fibromyalgia, and heart murmur who was admitted to the hospital with nausea, vomiting, shortness of breath, abdominal pain and also chest pain. Her troponin values are mildly elevated but the pattern was consistent with acute injury pattern. EKG did not reveal any acute changes. Patient has multiple other metabolic issues. Her echo Cardigan showed normal LV function without any segmental wall motion defects or significant valvular abnormalities. We'll going to discontinue heparin. She is currently on lorazepam and aspirin and nicotine patches. Her pains appear to be atypical. Chest x-ray did not reveal any acute pulmonary process. Patient may need stress test to rule out any underlying ischemic heart disease. Lab values showed mild leukocytosis. There is a marked microcytosis could be related to alcohol abuse. Patient has moderate hypercholesterolemia. Continue current medical therapy. We will consider for outpatient stress test Objective - Vital Signs Vital signs: Vital Signs Temp 98.7 F 02/27/21 11:22 Pulse 98 02/27/21 15:29 Resp 16 02/27/21 15:29 BP 121/80 02/27/21 15:29 Pulse Ox 100 02/27/21 15:29 Intake & Output 02/26/21 02/27/21 02/27/21 18:59 06:59 18:59 Intake Total 103.437 800 Output Total 700 450 Balance 103.437 -700 350 Weight 75 kg Intake: IV 800 Sodium Chloride 0.9% 1, 800 000 ml @ 100 mls/hr IV . Q10H [facility] Rx#:[id number] Intake, IV Titration 103.437 Amount Heparin Sod,Pork in 0.45% 103.437 NaCl 25,000 unit In 0.45 % NaCl 1 250ml.bag @ 12 UNITS/KG/HR 8.709 mls/hr IV .Q24H [facility] Rx#: [id number] Oral 0 Output: Urine 700 450 Other: Voiding Method Bedpan Bedpan # Voids 1 - Exam GENERAL EXAM: Patient is alert and oriented and doesn't appear to be in any acute distress, appears to be slightly sleepy and lethargic HEENT: Normocephalic. Normal reaction of pupils, equal size, normal range of extraocular motion. No erythema or exudates in the throat. NECK: No masses, no nuchal rigidity. CHEST: No chest wall deformity. LUNGS: Equal air entry with no crackles or wheeze. HEART: S1 and S2 normal with no audible mumurs or gallops. Regular rhythm, femorals equal on both sides.. ABDOMEN: No hepatosplenomegaly, normal bowel sounds, no guarding or rigidity. SKIN: No rashes CENTRAL NERVOUS SYSTEM: No focal deficits. EXTREMITIES: No cyanosis, clubbing or edema. - Labs CBC & Chem 7: 02/27/21 10:44 02/27/21 15:21 Labs: Abnormal Lab Results - Last 24 Hours (Table) 02/26/21 02/26/21 02/26/21 Range/Units 17:39 17:39 17:39 WBC 20.9 H (3.8-10.6) k/uL RBC 3.63 L (3.80-5.40) m/uL MCV 114.2 H (80.0-100.0) fL MCH 40.6 H (25.0-35.0) pg Neutrophils # 18.6 H (1.3-7.7) k/uL Macrocytosis Marked A APTT 43.4 H (22.0-30.0) sec ABG pCO2 (35-45) mmHg ABG pO2 (83-108) mmHg ABG O2 Saturation (94-97) % Sodium 135 L (137-145) mmol/L Potassium 2.9 L (3.5-5.1) mmol/L Carbon Dioxide 20 L (22-30) mmol/L BUN 4 L (7-17) mg/dL Creatinine 0.41 L (0.52-1.04) mg/dL Glucose 103 H (74-99) mg/dL 02/26/21 02/26/21 02/27/21 Range/Units 17:51 23:05 09:34 WBC (3.8-10.6) k/uL RBC (3.80-5.40) m/uL MCV (80.0-100.0) fL MCH (25.0-35.0) pg Neutrophils # (1.3-7.7) k/uL Macrocytosis APTT (22.0-30.0) sec ABG pCO2 30 L (35-45) mmHg ABG pO2 77 L (83-108) mmHg ABG O2 Saturation 97.9 H (94-97) % Sodium (137-145) mmol/L Potassium 2.8 L 3.3 L (3.5-5.1) mmol/L Carbon Dioxide (22-30) mmol/L BUN (7-17) mg/dL Creatinine (0.52-1.04) mg/dL Glucose (74-99) mg/dL 02/27/21 02/27/21 Range/Units 10:43 10:44 WBC 13.0 H (3.8-10.6) k/uL RBC 3.38 L (3.80-5.40) m/uL MCV 111.0 H (80.0-100.0) fL MCH 38.4 H (25.0-35.0) pg Neutrophils # 10.6 H (1.3-7.7) k/uL Macrocytosis Marked A APTT 53.1 H (22.0-30.0) sec ABG pCO2 (35-45) mmHg ABG pO2 (83-108) mmHg ABG O2 Saturation (94-97) % Sodium (137-145) mmol/L Potassium (3.5-5.1) mmol/L Carbon Dioxide (22-30) mmol/L BUN (7-17) mg/dL Creatinine (0.52-1.04) mg/dL Glucose (74-99) mg/dL Assessment and Plan (1) Chest pain Current Visit: Yes Status: Acute Code(s): R07.9 - CHEST PAIN, UNSPECIFIED SNOMED Code(s): 99672069 (2) Elevated troponin Current Visit: Yes Status: Acute Code(s): R77.8 - OTHER SPECIFIED ABNORMALITIES OF PLASMA PROTEINS SNOMED Code(s): 901461950 (3) History of alcohol abuse Current Visit: Yes Status: Acute Code(s): F10.11 - ALCOHOL ABUSE, IN REMISSION SNOMED Code(s): 850496245 (4) Metabolic acidosis Current Visit: Yes Status: Acute Code(s): E87.2 - ACIDOSIS SNOMED Code(s): 65213572 (5) Alcohol dependence Current Visit: No Status: Acute Priority: Medium Code(s): F10.20 - ALCOHOL DEPENDENCE, UNCOMPLICATED SNOMED Code(s): 66272270 Plan: Her chest pains are atypical. Cardiac enzymes studies are not consistent with acute coronary syndrome. She needs to change her lifestyle. May need a stress test to rule out underlying ischemic heart disease. She does have [id number] hypercholesterolemia. She may have to follow low-cholesterol diet and may be considered for statin therapy. Rest of the management as for the PCP
[2021-02-27] MEDS: ONDANSETRON 4 MG/2 ML VIAL IVP PRN (21:36)
[2021-02-27] MEDS: traZODone HCL 50 MG TAB PO SCH (21:36)
[2021-02-27] MEDS: ACETAMINOPHEN TAB 500 MG TAB PO PRN (21:36)
[2021-02-28] MEDS: IBUPROFEN 600 MG TAB PO PRN (00:40)
[2021-02-28] MEDS: NITROGLYCERIN OINT 1 INCH/GM PACKET TOPICAL SCH ×5 (02:36→23:49)
[2021-02-28] MEDS: THIAMINE 100 MG TAB PO SCH ×2 (06:54→16:14)
[2021-02-28] MEDS: NICOTINE 14MG/24HR PATCH TRANSDERM SCH ×2 (06:54→06:55)
[2021-02-28] MEDS: SODIUM CHLORIDE 0.9% 1,000 ML IV SCH ×2 (07:00→16:15)
[2021-02-28] MEDS: ASPIRIN 325 MG TAB PO SCH (08:52)
[2021-02-28] MEDS: DULoxetine HCL 60 MG CAPSULE.DR PO SCH (08:52)
[2021-02-28] MEDS: ONDANSETRON 4 MG/2 ML VIAL IVP PRN (08:52)
[2021-02-28] MEDS: MULTIVITAMINS, THERA 1 EACH TAB PO SCH (08:52)
[2021-02-28] MEDS: ACETAMINOPHEN TAB 500 MG TAB PO PRN ×2 (08:53→19:51)
[2021-02-28] MEDS ORDERED: DOBUTamine DRIP for NUC MED 500 MG in DEXTROSE/WATER 1 250ML.BAG IV PRN (09:56)
--- NOTE | 2021-02-28 15:18 | P.PN ---
Subjective Patient is a pleasant 41-year-old female with history of alcohol, COPD, prior tobacco abuse, fibromyalgia, heart murmur since childhood who presents secondary to nausea, vomiting, shortness breath, abdominal pain and chest pain over the last 5 days. We are consulted for chest pain and elevated troponin Troponin 0.07, 0.15, 0.12, EKG was performed which showed normal sinus rhythm, normal axis, no significant ST-T wave abnormalities. Chest x-rayno acute cardiopulmonary process KUB- nonobstructive bowel gas pattern Echocardiogram 02/27 revealed normal left ventricle systolic function EF between 5560 percent, mild MR, mild TR 02/28/21: Patient seen and examined at bedside, no acute distress. Blood pressure 131/89, heart rate 87, maintaining oxygen saturations on room air. No repeat labs for today. PHYSICAL EXAMINATION Vital signs reviewed. CONSTITUTIONAL: No apparent distress, ill appearing HEENT: Head is normocephalic. No JVD. No carotid bruit. CHEST EXAMINATION: Lungs are clear to auscultation. No chest wall tenderness is noted on palpation or with deep breathing. HEART EXAMINATION: Regular rate and regular rhythm. S1, S2 heard. +diffuse systolic murmur, no gallops or rub. ABDOMEN: Soft, nontender. Positive bowel sounds. EXTREMITIES: 2+ peripheral pulses, no lower extremity edema and no calf tenderness. NEUROLOGIC EXAMINATION: Patient is awake, alert and oriented x3. ASSESSMENT Elevated troponin of unclear significance, suspect type II mechanism secondary to multiple derangements however she is having chest pain Chest pain, atypical Cardiac enzymes studies are not consistent with acute coronary syndrome. Leukocytosis- blood cultures negative Severe acidosis, bicarb less than 5 Shortness breath, likely component of tachypnea related to metabolic acidosis Systolic murmur, history of murmur as a child and denies history of echo in the past. Rule out congenital heart disease Alcoholism, status post abstinence since 02/06/2021 Fibromyalgia, anxiety, depression Sinus tachycardia, likely reactive Nausea, vomiting, abdominal pain, unclear etiology Hypokalemia, resolved Hyperlipidemia 10 year ASCVD risk low 1.4%. PLAN Will obtain [place] stress echocardiogram tomorrow rule out any underlying ischemic heart disease. NPO at midnight Repeat BMP and CBC tomorrow Emphasis on on lifestyle to reduce ASCVD risk factors Rest of management per PCP Further recommendations based on clinical course Objective - Vital Signs Vital signs: Vital Signs Temp 97.2 F L 02/28/21 04:00 Pulse 87 02/28/21 11:41 Resp 18 02/28/21 11:41 BP 131/89 02/28/21 11:41 Pulse Ox 100 02/28/21 11:41 Intake & Output 02/27/21 02/28/21 02/28/21 18:59 06:59 18:59 Intake Total 800 Output Total 450 560 Balance 350 -560 Weight 75.5 kg Intake: IV 800 Sodium Chloride 0.9% 1, 800 000 ml @ 100 mls/hr IV . Q10H [facility] Rx#:[id number] Output: Urine 450 560 Other: Voiding Method Bedpan Bedpan # Voids 1 1 - Labs CBC & Chem 7: 02/27/21 10:44 02/27/21 15:21 Labs: Microbiology - Last 24 Hours (Table) 02/26/21 17:39 Blood Culture - Preliminary Blood No Growth after 24 hours
[2021-02-28] MEDS ORDERED: CALCIUM CARBONATE 500 MG CHEWABLE PO PRN (15:38)
[2021-02-28] MEDS: ETODOLAC 400 MG TAB PO PRN (16:14)
[2021-02-28] MEDS: traZODone HCL 50 MG TAB PO SCH (19:51)
[2021-02-28 20:06] VITALS: RESP 18
[2021-02-28] MEDS ORDERED: ETODOLAC 400 MG TAB PO SCH (21:00)
[2021-02-28] MEDS ORDERED: MELATONIN 3 MG TABLET PO SCH (21:00)
--- NOTE | 2021-02-28 22:21 | HP ---
HISTORY AND PHYSICAL ADMITTING CHIEF COMPLAINT: Chest pain, abdominal pain, and alcoholism. HISTORY OF PRESENT ILLNESS: This is another recent admission for this 41-year-old white female chronic alcoholic. She presented to the emergency room with chest pain and slightly elevated troponin. She also has gastritis and esophagitis all related to her heavy alcohol consumption. In the emergency room, she was also hypomagnesemic, and she was nauseated, and vomiting. REVIEW OF SYSTEMS: She has had no blackouts . She has had no change in vision or hearing. She has had no cough, shortness of breath, palpitations, orthopnea, PND, murmurs, rheumatic fever, history of hypertension, hematemesis, melena, jaundice, renal failure, dysuria, frequency, urgency, hematuria, diabetes, etc. Past medical history, family history, personal and social histories reveal that she has had a longstanding history of alcoholism. She was just in the hospital recently. She also is having difficulty with depression and she was seen by Psychiatry when she was in last visit. She is not allergic to any medication. She is not currently taking any medications. She does smoke and continues to drink heavily and has not been serious about seeking treatment. PHYSICAL EXAMINATION: Her blood pressure is 141/90 with a pulse of 105, respirations of 36, and she is afebrile. In general, she appeared to be pale and depressed. Head, ears, eyes, nose, mouth and throat were unremarkable. Neck is supple. Chest is clear. Cardiac exam is normal with sinus tachycardia. The abdomen is flat, soft and nontender. Liver was enlarged about 1 inch below the right costal margin. Extremities are normal. Neurologically, she is intact. IMPRESSION: She is admitted to the hospital with diagnoses: 1. Chest pain. 2. Elevated troponin. 3. Chronic alcoholism. 4. Esophagitis and gastritis. 5. Depression. PLAN: 1. Bedrest. 2. IV fluids. 3. CIWA protocol. 4. Workup chest pain. MMODL / IJN: [id number] /
--- NOTE | 2021-02-28 22:30 | PN ---
PROGRESS NOTE DATE OF SERVICE: 02/28/2021. CHIEF COMPLAINT: Chest pain, alcoholism, gastritis and esophagitis. HISTORY OF PRESENT ILLNESS: This lady is still complaining of a burning epigastric pain and she is still vomiting. PHYSICAL EXAMINATION: CHEST: Clear. The cardiac exam is normal. The abdomen is slightly distended and she has epigastric tenderness. IMPRESSION: 1. Gastritis and esophagitis. 2. Chest pain. 3. Chronic alcoholism. 4. Impending DTs. 5. Depression. PLAN: Continue with IV fluids and CIWA protocol as well as treat her gastritis. MMODL / IJN: [id number] /
[2021-03-01] MEDS: ONDANSETRON 4 MG/2 ML VIAL IVP PRN (00:09)
[2021-03-01] MEDS: ETODOLAC 400 MG TAB PO PRN (01:15)
[2021-03-01] MEDS: NITROGLYCERIN OINT 1 INCH/GM PACKET TOPICAL SCH ×2 (02:05→05:56)
[2021-03-01] MEDS: SODIUM CHLORIDE 0.9% 1,000 ML IV SCH ×2 (03:45→07:09)
[2021-03-01] MEDS: NICOTINE 14MG/24HR PATCH TRANSDERM SCH (07:08)
[2021-03-01] MEDS: MULTIVITAMINS, THERA 1 EACH TAB PO SCH (07:08)
[2021-03-01] MEDS: ASPIRIN 325 MG TAB PO SCH (07:08)
[2021-03-01] MEDS: THIAMINE 100 MG TAB PO SCH (07:08)
[2021-03-01] MEDS: DULoxetine HCL 60 MG CAPSULE.DR PO SCH (07:08)
[2021-03-01] MEDS: ACETAMINOPHEN TAB 500 MG TAB PO PRN (07:20)
[2021-03-01 08:35] LABS: HCT 37.9 % (34.0-46.0); HGB 13.3 gm/dL (11.4-16.0); MCH 38.7 pg (25.0-35.0); MCHC 34.9 g/dL (31.0-37.0); MCV 110.7 fL (80.0-100.0); Macrocytosis Marked; Mean Platelet Volume 8.8; Platelet Count 180 k/uL (150-450); RBC 3.43 m/uL (3.80-5.40); RDW 14.3 % (11.5-15.5); WBC 9.2 k/uL (3.8-10.6)
[2021-03-01 09:02] VITALS: BP 115/80; PULSE 90; TEMP 98.4
[2021-03-01 09:05] LABS: African American GFR (CKD) >90 (>60 ml/min/1.73 sqM); Anion Gap 5 mmol/L; Blood Urea Nitrogen 3 mg/dL (7-17); Calcium 8.4 mg/dL (8.4-10.2); Carbon Dioxide 26 mmol/L (22-30); Chloride 104 mmol/L (98-107); Glucose 83 mg/dL (74-99); Non-African American GFR(CKD) >90 (>60 ml/min/1.73 sqM); Potassium 3.5 mmol/L (3.5-5.1); Sodium 135 mmol/L (137-145)
--- NOTE | 2021-03-01 10:31 | P.PN ---
Subjective This is a pleasant 41-year-old female past medical history significant for fibromyalgia, former nicotine dependence, COPD and daily alcohol intake. She is seen and examined sitting up on the edge of the bed in no acute distress. She denies any further symptoms of chest discomfort. She has no significant shortness of breath, palpitations, nausea, vomiting or diaphoresis. Blood pressure 115/80 heart rate 90 afebrile maintaining oxygen saturation on room air. Laboratory data reviewed, WBC 9.2, hemoglobin 13.3, sodium 135, potassium 3.5 and creatinine 0.33. Currently maintained on aspirin 325 mg daily. GENERAL: Well-appearing, well-nourished and in no acute distress. NECK: Supple without JVD or thyromegaly. LUNGS: Breath sounds clear to auscultation bilaterally. Respiration equal and unlabored. No wheezes, rales or rhonchi. HEART: Regular rate and rhythm with systolic ejection murmur noted, no rubs or gallops. S1 and S2 heard. EXTREMITIES: Normal range of motion, no edema. No clubbing or cyanosis. Peripheral pulses intact. ASSESSMENT Chest pain Troponin leak, not consistent with ACS. Unclear significance. Leukocytosis Severe acidosis Daily alcohol intake Hypokalemia, resolved Dyslipidemia PLAN Proceed with dobutamine stress test as previously ordered. If normal, she can be discharged from a cardiac perspective. Follow up with Dr. Mak upon discharge. Ongoing alcohol cessation recommended. Nurse Practitioner note has been reviewed, I agree with a documented findings and plan of care. Patient was seen and examined. Objective - Vital Signs Vital signs: Vital Signs Temp 98.4 F 03/01/21 08:00 Pulse 90 03/01/21 08:00 Resp 18 03/01/21 09:27 BP 115/80 03/01/21 08:00 Pulse Ox 98 03/01/21 08:00 Intake & Output 02/28/21 03/01/21 03/01/21 18:59 06:59 18:59 Intake Total 100 Balance 100 Weight 75.5 kg Intake: Oral 100 Other: Voiding Method Bedpan Bedside Commode # Voids 1 2 - Labs CBC & Chem 7: 03/01/21 07:59 03/01/21 07:59 Labs: Abnormal Lab Results - Last 24 Hours (Table) 03/01/21 03/01/21 Range/Units 07:59 07:59 RBC 3.43 L (3.80-5.40) m/uL MCV 110.7 H (80.0-100.0) fL MCH 38.7 H (25.0-35.0) pg Macrocytosis Marked A Sodium 135 L (137-145) mmol/L BUN 3 L (7-17) mg/dL Creatinine 0.33 L (0.52-1.04) mg/dL Microbiology - Last 24 Hours (Table) 02/26/21 17:39 Blood Culture - Preliminary Blood No Growth after 48 hours
--- NOTE | 2021-03-01 11:30 | CDI ---
Documentation Clarification Form Date: 03/01/2021 11:00:35 AM From: Flaquita Shaffer RN, CCDS Admit Date: 02/25/2021 02:51:00 PM Patient Name: Alistair Jung Visit Number: [id number] Discharge Date: ATTENTION: The Clinical Documentation Specialists (CDI) and [facility] Coding Staff appreciate your assistance in clarifying documentation. Please respond to the clarification below the line at the bottom and electronically sign. The CDI & [facility] Coding staff will review the response and follow-up if needed. Please note: Queries are made part of the Legal Health Record. If you have any questions, please contact the author of this message via ITS. Dr. William Mak There is documentation of type II mechanism in your consult on . Additional clarification is requested. History/Risk Factors: COPD, Tobacco abuse, Alcohol abuse, Heart murmur Clinical Indicators: 41-year-old female present to ED on 02/25 with complaints abdominal and chest pain over the last 5 days 03/27 EKG: Shows normal sinus rhythm, normal axis, no significant ST-T wave abnormalities. 02/25 Vital signs: 148/110 115 16 98.3 98 % RA 02/25 Labs: WBC 30.9, HGB 17.5, HGB 54.2, Platelets 335, Bicarb <5, Sodium 132, BUN 9, Creatinine 0.6, Troponin 0.071, 0.153, 0.123; Covid not detected 02/25 CXR: No acute cardiopulmonary process 02/27 ECHO: There is mild concentric left ventricular hypertrophy. Overall left ventricular systolic function is normal with, an EF between 55-60 % Treatment: Telemetry Monitoring .9NS with Vitamin supplements @100 MLS HR .9NS 1000 MLS Bolus x1 Sodium Bicarbonate 50 ML IV STA X2 Mg Sulfate1 GM IVPB X1 Heparin drip (Titrate 02/25-02/27) Can you please clarify Type II mechanism? [ X ] Type II TX secondary to metabolic acidosis, leukocytosis and electrolyte abnormalities [ ] Other, please specify [ ] Unable to determine (Template Last Revised: January 2021) MTDD
--- NOTE | 2021-03-01 15:37 | ECHOS ---
STRESS ECHOCARDIOGRAM LUMASON: N/A Vial INDICATIONS: Chest pain MEDICATIONS: BASELINE HEART RATE: 85. BASELINE BLOOD PRESSURE: 124/86 MAXIMUM HEART RATE: 155 MAXIMUM BLOOD PRESSURE: 198/80 85% MPHR: 153 100% MPHR: 180 METS: N/A MAXIMUM STAGE REACHED: 3 TOTAL EXERCISE TIME: 8:20 CLINICAL INFORMATION: Baseline rhythm is a sinus mechanism, rate of 85, normal axis and intervals, normal electrocardiogram. Baseline blood pressure 124/86 mmHg. Patient received infusion of dobutamine per protocol, peak rate 155 beats per minute which is equal to 86% maximum predicted heart rate. Peak blood pressure 198/80 mmHg. Electrocardiograph monitoring revealed no evidence of diagnostic ischemic ST deviation. Baseline echocardiogram revealed normal wall motion. At peak infusion, there was normal wall motion augmentation with no hypokinesis or dyskinesis. CONCLUSION: 1. Normal electrocardiograph response to exercise with rare PVCs. 2. Normal stress echocardiogram with no evidence of stress-induced ischemia. MMODL / IJN: [id number] /
--- NOTE | 2021-03-01 23:14 | DS ---
DISCHARGE SUMMARY CHIEF COMPLAINT: Chest pain and alcoholism. HISTORY OF PRESENT ILLNESS AND PHYSICAL EXAMINATION: Details of this lady's history and physical can be found in the initial workup. LABORATORY STUDIES: While she was in the hospital she had laboratory studies, details of which can be found in the laboratory section of her chart. COURSE IN THE HOSPITAL: After admission she was placed on bedrest and started on intravenous fluids, and she was subsequently seen by Cardiology. She underwent a stress study which was normal. It was felt she could be discharged. She refused psychiatric evaluation once again for management of her depression. She will go home on her usual activity, diet and medications, and we will contact her in a day or two from the office. FINAL DIAGNOSES: 1. Chest pain, non-cardiac. 2. Chronic alcoholism. 3. Cirrhosis. 4. Depression. OPERATIONS: None. CONSULTATION: Cardiology. She is improved. ELOY / SHEYLA: [id number] /
[2021-03-02] MEDS ORDERED: ASPIRIN 81 MG PO SCH (09:00)
--- NOTE | 2021-03-07 15:51 | CDI ---
Documentation Clarification Form Date: 03/07/2021 03:48:00 PM From: Aviva Emmanuel Phone: Admit Date: 02/25/2021 02:51:00 PM Patient Name: Alistair Jung Visit Number: [id number] Discharge Date: 03/01/2021 01:49:00 PM ATTENTION: The Clinical Documentation Specialists (CDI) and [facility] Coding Staff appreciate your assistance in clarifying documentation. Please respond to the clarification below the line at the bottom and electronically sign. The CDI & [facility] Coding staff will review the response and follow-up if needed. Please note: Queries are made part of the Legal Health Record. If you have any questions, please contact the author of this message via ITS. Dr. Henok More, Conflicting documentation has been found in the medical record. As attending physician, please provide clarification. Dr. Mak documented in his 02/26 consult: Elevated troponin of unclear significance, suspect type II mechanism secondary to multiple derangements however she is having chest pain. Dr. Mak was queried to clarify Type II mechanism, his response: Type II MN secondary to metabolic acidosis, leukocytosis and electrolyte abnormalities. Your discharge summary: chest pain, non-cardiac, chronic alcoholism, cirrhosis & depression. History/Risk Factors: COPD, smoker, alcoholism, heart murmur Clinical Indicators: She presented to the ER with chest pain. Troponin I; 0.071, 0.153, 0.123. Treatment: ECHO, IV fluids Please clarify which diagnosis is most appropriate: [ ] Type II MN secondary to metabolic acidosis, leukocytosis and electrolyte abnormalities [ ] Chest pain, non-cardiac [ ] Other (please specify) [ ] Unable to determine MTDD
--- NOTE | 2021-03-09 23:13 | MISC ---
MISCELLANOUS REPORT QUERY: Chest pain, noncardiac. MMODL / IJN: [id number] /
== END 2021-03-01 13:49 | disposition home or self-care (01) | DRG 313 ==
LOC: EC 12:16 → 3SCARD 14:51 → 1SOBS 02-28 21:14
PROVIDERS: ADMIT Family Medicine; ATTEND Family Medicine
DX: R07.89 Other chest pain (principal); E87.2 Acidosis; F10.239 Alcohol dependence with withdrawal, unspecified; K74.60 Unspecified cirrhosis of liver; J44.9 Chronic obstructive pulmonary disease, unspecified; Z20.822 Contact with and (suspected) exposure to COVID-19; E86.0 Dehydration; D72.829 Elevated white blood cell count, unspecified; K29.20 Alcoholic gastritis without bleeding; K20.90 Esophagitis, unspecified without bleeding; E83.42 Hypomagnesemia; E78.00 Pure hypercholesterolemia, unspecified; E78.5 Hyperlipidemia, unspecified; E87.6 Hypokalemia; F32.9 Major depressive disorder, single episode, unspecified; M79.7 Fibromyalgia; M54.30 Sciatica, unspecified side; F41.9 Anxiety disorder, unspecified; F90.9 Attention-deficit hyperactivity disorder, unspecified type; F17.210 Nicotine dependence, cigarettes, uncomplicated; Z71.6 Tobacco abuse counseling; Z79.899 Other long term (current) drug therapy; Z71.41 Alcohol abuse counseling and surveillance of alcoholic; Z86.2 Personal history of diseases of the blood and blood-forming organs and certain disorders involving the immune mechanism; Z83.2 Family history of diseases of the blood and blood-forming organs and certain disorders involving the immune mechanism; Z82.61 Family history of arthritis; Z82.3 Family history of stroke; Z82.69 Family history of other diseases of the musculoskeletal system and connective tissue
CPT/HCPCS: 36415; 36600; 71046; 74018; 80048; 80053; 80061; 81001; 81025; 82150; 82550; 82805; 83605; 83690; 83735; 84132; 84484; 85025; 85027; 85730; 87040; 87635; 93005; 93306; 93351; 96361; 96365; 96375; 96376; 99285; 99291

== ENCOUNTER 2022-03-05 10:20 | Emergency (ER) | payer BC, OTHER ==
[2022-03-05 10:26] VITALS: TEMP 98.1
[2022-03-05] MEDS ORDERED: HYDROcodone/APAP 5-325MG 1 EACH TAB PO STA (11:20)
--- NOTE | 2022-03-05 11:44 | XR ---
EXAMINATION TYPE: XR chest 2V DATE OF EXAM: 03/05/2022 COMPARISON: Chest x-ray dated 02/25/2021 HISTORY: Cough and shortness of breath TECHNIQUE: Frontal and lateral views of the chest are obtained. FINDINGS: Blunting of the right costophrenic angle is noted, however, no significant effusion eviden t on the lateral exam. No evident pneumothorax. Cardiac mediastinal silhouette is stable. Right hemid iaphragm again mildly elevated. Question some patchy substernal increased density. Bronchial wall th ickening is noted. IMPRESSION: Difficult to exclude a right middle lobe pneumonia, possible small effusion, follow-up. Correlate for bronchiolitis.
[2022-03-05 11:53] VITALS: BP 114/90; PULSE 58; RESP 18
--- NOTE | 2022-03-05 12:10 | ED ---
General Adult HPI - General Chief complaint: Upper Respiratory Infection Stated complaint: SOB Time Seen by Provider: 03/05/22 10:54 Source: patient, family, RN notes reviewed Mode of arrival: ambulatory Limitations: no limitations - History of Present Illness Initial comments: 42-year-old female presents emergency Department with chief complaint of cough and cold like symptoms for last 3-4 days. Patient states that she has large amount bodyaches, congestion, mild shortness breath she does have asthma COPD and continues to smoke. Patient denies any nausea and diarrhea constipation states her is at home sick with similar symptoms recently diagnosed with acute bronchitis. - Related Data Home Medications Medication Instructions Recorded Confirmed Acetaminophen Tab [Tylenol Tab] 1,000 mg PO Q6HR PRN 03/05/22 03/05/22 Ibuprofen [Motrin Ib] 800 mg PO Q8H PRN 03/05/22 03/05/22 Previous Rx's Medication Instructions Recorded Dexamethasone [Decadron] 6 mg PO DAILY #5 tablet 03/05/22 Allergies Allergy/AdvReac Type Severity Reaction Status Date / Time No Known Allergies Allergy Verified 03/05/22 11:42 Review of Systems ROS Statement: Those systems with pertinent positive or pertinent negative responses have been documented in the HPI. ROS Other: All systems not noted in ROS Statement are negative. Past Medical History Past Medical History: Asthma, COPD, Fibromyalgia, Memory Impairment Additional Past Medical History / Comment(s): freq nausea, elevated enzymes, bleeding with urination, sciatica, anemia, heart murmur as a child, hard to move arms and legs (1.5 years ago) History of Any Multi-Drug Resistant Organisms: None Reported Past Surgical History: No Surgical Hx Reported Past Anesthesia/Blood Transfusion Reactions: No Reported Reaction Additional Past Anesthesia/Blood Transfusion Reaction / Comment(s): never has had general anesthesia,has had epidural in past with labor. Past Psychological History: ADD/ADHD, Anxiety, Depression Smoking Status: Current some day smoker Past Alcohol Use History: Abuse, Daily, Heavy Past Drug Use History: Marijuana - Past Family History Mother Family Medical History: CVA/TIA, Fibromyalgia Additional Family Medical History / Comment(s): MTHR bleeding disorder, fibromyalgia, athritis; sents in brain Sister(s) Additional Family Medical History / Comment(s): "sticky platelet disorder" General Exam Limitations: no limitations General appearance: alert, in no apparent distress Head exam: Present: atraumatic, normocephalic, normal inspection Eye exam: Present: normal appearance, PERRL, EOMI. Absent: scleral icterus, conjunctival injection, periorbital swelling ENT exam: Present: normal exam, normal oropharynx, mucous membranes moist Neck exam: Present: normal inspection, full ROM. Absent: tenderness, meningismus, lymphadenopathy Respiratory exam: Present: normal lung sounds bilaterally. Absent: respiratory distress, wheezes, rales, rhonchi, stridor Cardiovascular Exam: Present: regular rate, normal rhythm, normal heart sounds. Absent: systolic murmur, diastolic murmur, rubs, gallop, clicks Course Vital Signs 03/05/22 03/05/22 03/05/22 10:22 11:11 11:51 Temperature 98.1 F Pulse Rate 72 58 L Respiratory 18 25 H 18 Rate Blood Pressure 112/76 114/90 O2 Sat by Pulse 99 99 Oximetry Medical Decision Making - Medical Decision Making Patient is covid19 positive she was offered monoclonal antibodies, antivirals, steroids return if symptoms worsen she is agreeable to steroids that she has COPD, and asthma. - Lab Data Lab Results 03/05/22 03/05/22 Range/Units 10:57 10:57 Coronavirus (PCR) Detected A (Not Detectd) Influenza Type A RNA Not Detected (Not Detectd) Influenza Type B (PCR) Not Detected (Not Detectd) Disposition Clinical Impression: COVID-19 Disposition: HOME SELF-CARE Condition: Stable Instructions (If sedation given, give patient instructions): COVID-19 (Coronavirus Disease 2019) (ED) Additional Instructions: Please return to the Emergency Department if symptoms worsen or any other concerns. Prescriptions: Dexamethasone [Decadron] 6 mg PO DAILY #5 tablet Is patient prescribed a controlled substance at d/c from ED?: No Referrals: None,Stated [Primary Care Provider] - 1-2 days Time of Disposition: 12:09
== END 2022-03-05 12:20 | disposition home or self-care (01) ==
LOC: EC 10:20
DX: U07.1 COVID-19 (principal); J44.9 Chronic obstructive pulmonary disease, unspecified; F17.200 Nicotine dependence, unspecified, uncomplicated
CPT/HCPCS: 71046; 87502; 87635; 99285

== ENCOUNTER 2023-12-11 14:25 | Emergency (ER) | payer BC, OTHER ==
--- NOTE | 2023-12-11 14:50 | ED ---
SOB HPI - General Chief Complaint: Shortness of Breath Stated Complaint: loss of appetite Time Seen by Provider: 12/11/23 14:35 Source: patient, family, RN notes reviewed Mode of arrival: wheelchair Limitations: no limitations - History of Present Illness Initial Comments: Patient is a 43-year-old female presented to ER with chief complaint of weakness. Daughter is providing some HPI reports patient quit drinking about 8 days ago. Patient was drinking a half gallon per day. She states patient has a history of psychosis with alcohol withdrawals. Denies any history of seizures or DTs with withdrawl. Patient is attending AA outpatient and denies any need of help. Patient states for the past 10 days she has been extremely weak and having some shortness of breath. Patient also is endorsing chills, cough, congestion. Patiently diagnosed with COVID 7 days ago. Patient also is reporting nausea but denies vomiting. Denies any constipation/diarrhea, abdominal pain, urinary symptoms, chest pain, peripheral edema. - Related Data Home Medications Medication Instructions Recorded Confirmed Acetaminophen Tab [Tylenol Tab] 1,000 mg PO Q6HR PRN 03/05/22 03/05/22 Ibuprofen [Motrin Ib] 800 mg PO Q8H PRN 03/05/22 03/05/22 Previous Rx's Medication Instructions Recorded dexAMETHasone [Decadron] 6 mg PO DAILY #5 tablet 03/05/22 Albuterol Inhaler [Ventolin Hfa 1 - 2 puff INHALATION Q6H PRN #1 12/11/23 Inhaler] each Allergies Allergy/AdvReac Type Severity Reaction Status Date / Time No Known Allergies Allergy Verified 03/05/22 11:42 Review of Systems ROS Statement: Those systems with pertinent positive or pertinent negative responses have been documented in the HPI. ROS Other: All systems not noted in ROS Statement are negative. Past Medical History Past Medical History: Asthma, COPD, Fibromyalgia, Memory Impairment Additional Past Medical History / Comment(s): freq nausea, elevated enzymes, bleeding with urination, sciatica, anemia, heart murmur as a child, hard to move arms and legs (1.5 years ago) History of Any Multi-Drug Resistant Organisms: None Reported Past Surgical History: No Surgical Hx Reported Past Anesthesia/Blood Transfusion Reactions: No Reported Reaction Additional Past Anesthesia/Blood Transfusion Reaction / Comment(s): never has had general anesthesia,has had epidural in past with labor. Past Psychological History: ADD/ADHD, Anxiety, Depression Smoking Status: Current some day smoker Past Alcohol Use History: Abuse, Daily, Heavy Past Drug Use History: Marijuana - Past Family History Mother Family Medical History: CVA/TIA, Fibromyalgia Additional Family Medical History / Comment(s): MTHR bleeding disorder, fibromyalgia, athritis; sents in brain Sister(s) Additional Family Medical History / Comment(s): "sticky platelet disorder" General Exam Limitations: no limitations General appearance: alert, in no apparent distress Head exam: Present: atraumatic, normocephalic, normal inspection Eye exam: Present: normal appearance, PERRL, EOMI. Absent: scleral icterus, conjunctival injection, periorbital swelling Pupils: Present: normal accommodation ENT exam: Present: normal exam, normal oropharynx, mucous membranes moist, TM's normal bilaterally Neck exam: Present: normal inspection. Absent: tenderness, meningismus, lymphadenopathy Respiratory exam: Present: normal lung sounds bilaterally. Absent: respiratory distress, wheezes, rales, rhonchi, stridor Cardiovascular Exam: Present: normal rhythm, tachycardia, normal heart sounds. Absent: systolic murmur, diastolic murmur, rubs, gallop, clicks GI/Abdominal exam: Present: soft, normal bowel sounds. Absent: distended, te nderness, guarding, rebound, rigid Neurological exam: Present: alert, oriented X3, CN II-XII intact Psychiatric exam: Present: normal affect, normal mood, anxious Skin exam: Present: warm, dry, intact, normal color, other (Multiple contusions noted on bilateral upper extremities). Absent: rash Course Vital Signs 12/11/23 12/11/23 12/11/23 14:26 17:31 18:34 Temperature 97.9 F 98 F 97.9 F Pulse Rate 118 H 110 H 99 Respiratory 20 18 18 Rate Blood Pressure 122/82 117/82 120/82 O2 Sat by Pulse 99 100 100 Oximetry Medical Decision Making - Medical Decision Making Was pt. sent in by a medical professional or institution (, PA, MUSIC THERAPIST, urgent care, hospital, or jail...) When possible be specific @ -No Did you speak to anyone other than the patient for history (EMS, parent, family, police, friend...)? What history was obtained from this source @ -No Did you review nursing and triage notes (agree or disagree)? Why? @ -I reviewed and agree with nursing and triage notes Were old charts reviewed (outside hosp., previous admission, EMS record, old EKG, old radiological studies, urgent care reports/EKG's, jail records)? Report findings @ -No old charts were reviewed Differential Diagnosis (chest pain, altered mental status, abdominal pain women, abdominal pain men, vaginal bleeding, weakness, fever, dyspnea, syncope, headache, dizziness, GI bleed, back pain, seizure, CVA, palpatations, mental health, musculoskeletal)? @ -Differential Dyspnea: Coronary syndrome, arrhythmia, tamponade, asthma, COPD, pulmonary embolism, pneumonia, pneumothorax, pulmonary effusion, anaphylaxis, diabetic ketoacidosis, flailed chest, pulmonary contusion, diaphragmatic rupture, anemia, neuromuscular, this is not meant to be an all-inclusive list. EKG interpreted by me (3pts min.). @ -As above X-rays interpreted by me (1pt min.). @ -Chest x-ray shows no acute process. CT interpreted by me (1pt min.). @ -None done U/S interpreted by me (1pt. min.). @ -None done What testing was considered but not performed or refused? (CT, X-rays, U/S, labs)? Why? @ -None What meds were considered but not given or refused? Why? @ -None Did you discuss the management of the patient with other professionals (professionals i.e. , PA, MUSIC THERAPIST, lab, RT, psych nurse, community mental health social worker, public health veterinarian, teacher, traffic maintenance officer, home health care case manager)? Give summary @ -No Was smoking cessation discussed for >3mins.? @ -I discussed smoking cessation for greater than 3 minutes. The risk of smoking were discussed with the patient including but not limited to risks of cancer, stroke, coronary artery disease and COPD. Also discussed with patient were multiple methods of quitting smoking. Lastly we discussed the financial cost of smoking. Was critical care preformed (if so, how long)? @ -No Were there social determinants of health that impacted care today? How? (Homelessness, low income, unemployed, alcoholism, drug addiction, transportation, low edu. Level, literacy, decrease access to med. care, correction, re hab)? @ -Alcoholism Was there de-escalation of care discussed even if they declined (Discuss DNR or withdrawal of care, Hospice)? DNR status @ -No What co-morbidities impacted this encounter? (DM, HTN, Smoking, COPD, CAD, Cancer, CVA, ARF, Chemo, Hep., AIDS, mental health diagnosis, sleep apnea, m orbid obesity)? @ -Alcoholism, COPD, anxiety, smoker Was patient admitted / discharged? Hospital course, mention meds given and route, prescriptions, significant lab abnormalities, going to OR and other pertinent info. @ -Discharge. Patient is a 43-year-old female presented to ER with chief compl aint of dyspnea and weakness. Patient has alcohol dependence and last drink was about 8 days ago. Patient is currently trying to quit drinking. Patient is attending AA outpatient. Patient also diagnosed with COVID 7 days ago. No histories of seizures or DTs with withdrawal. History and physical exam were completed. Vital stable. Patient was mildly tachycardic at 118. EKG shows sinus tachycardia with no acute signs of infarct or ischemia. Labs obtained show white blood cell count of 13.4, sodium 129, potassium 2.8, magnesium 1.8, alk phos 166. COVID, RSV, influenza negative. Chest x-ray shows no acute process. Patient did receive IV fluids, Toradol, Zofran for symptom control in the ER. Upon reevaluation patient was eager to go home. I discussed lab and imaging results with patient. Patient received by mouth potassium and magnesium prior to discharge. Patient discharged with starter pack of Zofran. Precribed albuterol for dyspnea. I discussed smoking cessation for greater than 3 minutes. The risk of smoking were discussed with the patient including but not limited to risks of cancer, stroke, coronary artery disease and COPD. Also discussed with patient were multiple methods of quitting smoking. Lastly we discussed the financial cost of smoking. Return parameters were discussed. Patient will be discharged in stable condition with follow-up to PCP. Patient expresed understanding and agreement with care plan. Undiagnosed new problem with uncertain prognosis? @ -No Drug Therapy requiring intensive monitoring for toxicity (Heparin, Nitro, Insulin, Cardizem)? @ -No Were any procedures done? @ -No Diagnosis/symptom? @ -Hypokalemia, dyspnea, weakness Acute, or Chronic, or Acute on Chronic? @ -Acute Uncomplicated (without systemic symptoms) or Complicated (systemic symptoms)? @ -Uncomplicated Side effects of treatment? @ -No Exacerbation, Progression, or Severe Exacerbation? @ -No Poses a threat to life or bodily function? How? (Chest pain, [place], [place], pneumonia, PE, COPD, DKA, ARF, appy, cholecystitis, CVA, Diverticulitis, Homicidal, Suicidal, threat to staff... and all critical care pts) @ -No - Lab Data Result diagrams: 12/11/23 15:22 12/11/23 17:00 Lab Results 12/11/23 12/11/23 12/11/23 Range/Units 14:32 15:22 17:00 WBC 13.4 H (3.8-10.6) k/uL RBC 4.29 (3.80-5.40) m/uL Hgb 15.4 (11.4-16.0) gm/dL Hct 43.7 (34.0-46.0) % MCV 102.0 H (80.0-100.0) fL MCH 36.0 H (25.0-35.0) pg MCHC 35.3 (31.0-37.0) g/dL RDW 12.8 (11.5-15.5) % Plt Count 318 (150-450) k/uL MPV 8.5 Macrocytosis Slight Sodium 129 L (137-145) mmol/L Potassium 2.8 L (3.5-5.1) mmol/L Chloride 96 L (98-107) mmol/L Carbon Dioxide 18 L (22-30) mmol/L Anion Gap 15 mmol/L BUN 21 H (7-17) mg/dL Creatinine 0.66 (0.52-1.04) mg/dL Est GFR (CKD-EPI)AfAm >90 (>60 ml/min/1.73 sqM) Est GFR (CKD-EPI)NonAf >90 (>60 ml/min/1.73 sqM) Glucose 92 (74-99) mg/dL Calcium 9.0 (8.4-10.2) mg/dL Magnesium 1.8 (1.6-2.3) mg/dL Total Bilirubin 0.7 (0.2-1.3) mg/dL AST 22 (14-36) U/L ALT 14 (4-34) U/L Alkaline Phosphatase 166 H (38-126) U/L Total Protein 6.9 (6.3-8.2) g/dL Albumin 4.0 (3.5-5.0) g/dL Influenza Type A (PCR) Not Detected (Not Detectd) Influenza Type B (PCR) Not Detected (Not Detectd) RSV (PCR) Not Detected (Not Detectd) SARS-CoV-2 (PCR) Not Detected (Not Detectd) - EKG Data -: EKG Interpreted by Me EKG Comments: EKG taken at 15: 19 shows sinus tachycardia with no acute ST segment or T wave abnormalities. Ventricular rate 116, MI interval 135, QRS duration 85, QT/QTc 347/416. - Radiology Data Radiology results: report reviewed, image reviewed Disposition Clinical Impression: Hypomagnesemia, Hypokalemia, Hyponatremia, History of alcohol abuse, Dyspnea Disposition: HOME SELF-CARE Condition: Stable Instructions (If sedation given, give patient instructions): Acute Nausea and Vomiting (ED), Alcohol Withdrawal (ED) Additional Instructions: Please follow-up with PCP in the next 1 to 2 days. Return to the ER for any new or worsening symptoms. Prescriptions: Albuterol Inhaler [Ventolin Hfa Inhaler] 1 - 2 puff INHALATION Q6H PRN #1 each PRN Reason: Shortness Of Breath Is patient prescribed a controlled substance at d/c from ED?: No Referrals: Henok More MD [Primary Care Provider] - 1-2 days Time of Disposition: 18:08
--- NOTE | 2023-12-11 15:51 | XR ---
EXAMINATION TYPE: XR chest 2V DATE OF EXAM: 12/11/2023 COMPARISON: 03/05/2022 HISTORY: Chest pain TECHNIQUE: Frontal and lateral view. S of the chest are obtained. FINDINGS: There is no focal air space opacity. No evidence for pneumothorax. No pleural effusion. The cardiac silhouette size is within normal limits. The osseous structures are grossly intact. IMPRESSION: 1. No acute cardiopulmonary process.
[2023-12-11 16:00] LABS: HCT 43.7 % (34.0-46.0); HGB 15.4 gm/dL (11.4-16.0); MCHC 35.3 g/dL (31.0-37.0); Macrocytosis Slight; Mean Platelet Volume 8.5; Platelet Count 318 k/uL (150-450); RBC 4.29 m/uL (3.80-5.40); RDW 12.8 % (11.5-15.5); WBC 13.4 k/uL (3.8-10.6)
[2023-12-11] MEDS: SODIUM CHLORIDE 0.9% 500 ML 500 ML IV STA (16:01)
[2023-12-11] MEDS: KETOROLAC 15 MG/ML 1 ML VIAL IVP STA (16:03)
[2023-12-11] MEDS: ONDANSETRON 4 MG/2 ML VIAL IVP STA (16:03)
[2023-12-11] MEDS: METOCLOPRAMIDE 5 MG/ML 2 ML VIAL IVP STA (17:06)
[2023-12-11 17:38] LABS: ALT 14 U/L (4-34); AST 22 U/L (14-36); African American GFR (CKD) >90 (>60 ml/min/1.73 sqM); Alkaline Phosphatase 166 U/L (38-126); Anion Gap 15 mmol/L; Blood Urea Nitrogen 21 mg/dL (7-17); Carbon Dioxide 18 mmol/L (22-30); Chloride 96 mmol/L (98-107); Glucose 92 mg/dL (74-99); Magnesium 1.8 mg/dL (1.6-2.3); Non-African American GFR(CKD) >90 (>60 ml/min/1.73 sqM); Potassium 2.8 mmol/L (3.5-5.1); Sodium 129 mmol/L (137-145); Total Bilirubin 0.7 mg/dL (0.2-1.3); Total Protein 6.9 g/dL (6.3-8.2)
[2023-12-11] MEDS ORDERED: POTASSIUM CHLORIDE ER 20 MEQ TAB.ER PO STA (17:44)
[2023-12-11] MEDS ORDERED: POTASSIUM CHLORIDE ER 20 MEQ TAB.ER PO SCH (18:00)
[2023-12-11 18:01] VITALS: RESP 18
[2023-12-11] MEDS: ONDANSETRON 4 MG ODT STARTER PACK 2 TAB BTL PO STA (18:19)
[2023-12-11] MEDS: MAGNESIUM OXIDE 400 MG TAB PO STA (18:19)
[2023-12-11] MEDS: POTASSIUM CHLORIDE ER 20 MEQ TAB.ER PO STA (18:19)
[2023-12-11 18:53] VITALS: BP 120/82; PULSE 99; TEMP 97.9
== END 2023-12-11 18:37 | disposition home or self-care (01) ==
LOC: EC 14:25
DX: E87.1 Hypo-osmolality and hyponatremia (principal); E83.42 Hypomagnesemia; E87.6 Hypokalemia; R06.00 Dyspnea, unspecified; F10.139 Alcohol abuse with withdrawal, unspecified; R00.0 Tachycardia, unspecified; J44.89 Other specified chronic obstructive pulmonary disease; F17.200 Nicotine dependence, unspecified, uncomplicated; F12.90 Cannabis use, unspecified, uncomplicated; Z86.59 Personal history of other mental and behavioral disorders; Z20.822 Contact with and (suspected) exposure to COVID-19
CPT/HCPCS: 36415; 93005; 80053; 83735; 85027; 87636; 71046; 99285; 96374; 96375 ×2; 96361; 99406; J2765; J2405; J1885; S0119

== ENCOUNTER 2024-01-31 15:17 | Emergency (ER) | payer OTHER ==
[2024-01-31 15:54] VITALS: TEMP 97.7
[2024-01-31 18:20] LABS: Basophils # (A) 0.1 k/uL (0-0.2); Basophils % (A) 0 %; Eosinophils # (A) 0.4 k/uL (0-0.7); Eosinophils % (A) 2 %; HGB 17.7 gm/dL (11.4-16.0); Lymphocytes # (A) 1.5 k/uL (1.0-4.8); Lymphocytes % (A) 6 %; MCH 32.3 pg (25.0-35.0); MCV 100.8 fL (80.0-100.0); Monocytes # (A) 0.6 k/uL (0-1.0); Monocytes % (A) 2 %; Neutrophils # (A) 23.7 k/uL (1.3-7.7); Neutrophils % (A) 90 %; Platelet Count 295 k/uL (150-450); RBC 5.47 m/uL (3.80-5.40); RDW 13.3 % (11.5-15.5); WBC 26.3 k/uL (3.8-10.6)
[2024-01-31 18:35] LABS: HCT 55.1 % (34.0-46.0)
[2024-01-31] MEDS: ONDANSETRON 4 MG/2 ML VIAL IVP STA (18:41)
[2024-01-31] MEDS: SODIUM CHLORIDE 0.9% 1,000 ML IV STA (18:42)
[2024-01-31] MEDS: PANTOPRAZOLE 40 MG/10 ML VIAL IVP STA (18:42)
[2024-01-31] MEDS: SODIUM CHLORIDE 0.9% 2,000 ML IV ONE (18:42)
[2024-01-31] MEDS: MORPHINE SULFATE 4 MG/ML SYRINGE IVP STA (19:49)
--- NOTE | 2024-01-31 20:38 | ED ---
General Adult HPI - General Chief complaint: Nausea/Vomiting/Diarrhea Stated complaint: Vomiting Time Seen by Provider: 01/31/24 16:17 Source: patient Mode of arrival: ambulatory Limitations: no limitations - History of Present Illness Initial comments: 43-year-old female presenting with chief complaint of nausea and vomiting. Patient has history of alcohol use disorder and gastric ulcers. For about the last day patient notes that her emesis is quite dark. She is concerned due to her history of ulcers. She admits to some epigastric pain. No chest pain or difficulty breathing. No dysuria, hematuria, hematochezia, melena, diarrhea, fevers, chills. Patient is a daily drinker and normally drinks about a pint per day. Her last drink was about 3 days ago. - Related Data Home Medications Medication Instructions Recorded Confirmed Acetaminophen Tab [Tylenol Tab] 1,000 mg PO Q6HR PRN 03/05/22 03/05/22 Ibuprofen [Motrin Ib] 800 mg PO Q8H PRN 03/05/22 03/05/22 Previous Rx's Medication Instructions Recorded dexAMETHasone [Decadron] 6 mg PO DAILY #5 tablet 03/05/22 Albuterol Inhaler [Ventolin Hfa 1 - 2 puff INHALATION Q6H PRN #1 12/11/23 Inhaler] each Allergies Allergy/AdvReac Type Severity Reaction Status Date / Time No Known Allergies Allergy Verified 01/31/24 15:20 Review of Systems ROS Statement: Those systems with pertinent positive or pertinent negative responses have been documented in the HPI. ROS Other: All systems not noted in ROS Statement are negative. Past Medical History Past Medical History: Asthma, COPD, Fibromyalgia, Memory Impairment Additional Past Medical History / Comment(s): freq nausea, elevated enzymes, bleeding with urination, sciatica, anemia, heart murmur as a child, hard to move arms and legs (1.5 years ago) History of Any Multi-Drug Resistant Organisms: None Reported Past Surgical History: No Surgical Hx Reported Past Anesthesia/Blood Transfusion Reactions: No Reported Reaction Additional Past Anesthesia/Blood Transfusion Reaction / Comment(s): never has had general anesthesia,has had epidural in past with labor. Past Psychological History: ADD/ADHD, Anxiety, Depression Smoking Status: Current some day smoker Past Alcohol Use History: Abuse, Daily, Heavy Past Drug Use History: Marijuana - Past Family History Mother Family Medical History: CVA/TIA, Fibromyalgia Additional Family Medical History / Comment(s): MTHR bleeding disorder, fibromyalgia, athritis; sents in brain Sister(s) Additional Family Medical History / Comment(s): "sticky platelet disorder" General Exam Limitations: no limitations General appearance: alert, in no apparent distress Head exam: Present: atraumatic, normocephalic Eye exam: Present: normal appearance Neck exam: Present: normal inspection Respiratory exam: Present: normal lung sounds bilaterally. Absent: respiratory distress, wheezes, rales, rhonchi, stridor Cardiovascular Exam: Present: normal rhythm, tachycardia, normal heart sounds. Absent: systolic murmur, diastolic murmur, rubs, gallop, clicks GI/Abdominal exam: Present: soft, tenderness. Absent: distended, guarding, rebound, rigid Neurological exam: Present: alert, oriented X3 Psychiatric exam: Present: normal affect, normal mood Skin exam: Present: warm, dry Course Vital Signs 01/31/24 01/31/24 01/31/24 15:18 20:51 21:50 Temperature 97.7 F Pulse Rate 143 H 124 H 130 H Respiratory 22 16 18 Rate Blood Pressure 144/102 132/96 146/101 O2 Sat by Pulse 97 96 97 Oximetry EKG Findings - EKG Comments: EKG Findings:: Sinus tachycardia ventricular rate 127. RI interval 142. QRS 90. QT 275. QTc 350. Medical Decision Making - Medical Decision Making Was pt. sent in by a medical professional or institution (, PA, FILTER TENDER JELLY, urgent care, hospital, or skilled nursing...) When possible be specific @ -No Did you speak to anyone other than the patient for history (EMS, parent, family, police, friend...)? What history was obtained from this source @ -No Did you review nursing and triage notes (agree or disagree)? Why? @ -I reviewed and agree with nursing and triage notes Were old charts reviewed (outside hosp., previous admission, EMS record, old EKG, old radiological studies, urgent care reports/EKG's, skilled nursing records)? Report findings @ -No old charts were reviewed Differential Diagnosis (chest pain, altered mental status, abdominal pain women, abdominal pain men, vaginal bleeding, weakness, fever, dyspnea, syncope, headache, dizziness, GI bleed, back pain, seizure, CVA, palpatations, mental health, musculoskeletal)? @ -MDM Differential GI Bleed: Esophageal varices, aortoenteric fistula, Danita-Rodriguez, gastritis, peptic ulcer disease, diverticulosis, inflammatory bowel disease, hemorrhoids, fissure, colitis, malignancy, Meckels diverticulum this is not meant to be an all- inclusive list. EKG interpreted by me (3pts min.). @ -EKG shows sinus tachycardia ventricular rate 127. RI interval 142. QRS 90. QT 275. QTc 350. X-rays interpreted by me (1pt min.). @ -None done CT interpreted by me (1pt min.). @ -CT shows no evidence of bowel obstruction, free fluid or free air. Normal appendix. Mildly thickened appearance of the gastric wall, may be due to incomplete distention but is concerning for possible inflammatory thickening versus neoplasm. Follow-up clinically. U/S interpreted by me (1pt. min.). @ -None done What testing was considered but not performed or refused? (CT, X-rays, U/S, labs)? Why? @ -None What meds were considered but not given or refused? Why? @ -None Did you discuss the management of the patient with other professionals (professionals i.e. , PA, FILTER TENDER JELLY, lab, RT, psych nurse, rn social work, top closer, teacher, flight deck officer, casework supervisor)? Give summary @ -No Was smoking cessation discussed for >3mins.? @ -No Was critical care preformed (if so, how long)? @ -No Were there social determinants of health that impacted care today? How? (Homelessness, low income, unemployed, alcoholism, drug addiction, transportation, low edu. Level, literacy, decrease access to med. care, correction, rehab)? @ -No Was there de-escalation of care discussed even if they declined (Discuss DNR or withdrawal of care, Hospice)? DNR status @ -No What co-morbidities impacted this encounter? (DM, HTN, Smoking, COPD, CAD, Cancer, CVA, ARF, Chemo, Hep., AIDS, mental health diagnosis, sleep apnea, morbid obesity)? @ -Alcohol use disorder, peptic ulcer disease Was patient admitted / discharged? Hospital course, mention meds given and route, prescriptions, significant lab abnormalities, going to OR and other pertinent info. @ -43-year-old female with history of alcohol use disorder and peptic ulcer disease presenting with chief complaint of nausea and vomiting. Nausea vomiting has been ongoing for about 7 days. Over the last 2 days she has had dark emesis. Patient is tachycardic upon arrival. She is receiving IV fluid bolus. WBC 26.3, there is likely some contribution of a reactive leukocytosis due to vomiting. Patient is hemoconcentrated. Carbon dioxide of 8 and anion gap of 21. Likely attributed to alcoholic ketoacidosis. She is negative for influenza, RSV, and COVID. Blood type a positive. CT obtained and report is pending. Patient received 3 L IV fluid bolus, thiamine, morphine, Dilaudid, and GI cocktail. She is resting comfortably on reevaluation. Given that the patient likely has an upper GI bleed and we do not have GI in the hospital this week she will require transfer. [facility] transfer, accepting physician is Dr. Rodriguez. Patient is agreeable with this plan. I discussed this case with my attending Dr. Recinos Undiagnosed new problem with uncertain prognosis? @ -No Drug Therapy requiring intensive monitoring for toxicity (Heparin, Nitro, Insulin, Cardizem)? @ -No Were any procedures done? @ -No Diagnosis/symptom? @ -Upper GI bleed, alcoholic ketoacidosis Acute, or Chronic, or Acute on Chronic? @ -Acute Uncomplicated (without systemic symptoms) or Complicated (systemic symptoms)? @ -Complicated Side effects of treatment? @ -No Exacerbation, Progression, or Severe Exacerbation? @ -No Poses a threat to life or bodily function? How? (Chest pain, USA, DC, pneumonia, PE, COPD, DKA, ARF, appy, cholecystitis, CVA, Diverticulitis, Homicidal, Suicidal, threat to staff... and all critical care pts) @ -Yes - Lab Data Result diagrams: 01/31/24 18:11 01/31/24 21: Lab Results 01/31/24 01/31/24 01/31/24 Range/Units 18:11 21:29 21:29 WBC 26.3 H (3.8-10.6) k/uL RBC 5.47 H (3.80-5.40) m/uL Hgb 17.7 H (11.4-16.0) gm/dL Hct 55.1 H (34.0-46.0) % MCV 100.8 H (80.0-100.0) fL MCH 32.3 (25.0-35.0) pg MCHC 32.0 (31.0-37.0) g/dL RDW 13.3 (11.5-15.5) % Plt Count 295 (150-450) k/uL MPV 9.0 Neutrophils % 90 % Lymphocytes % 6 % Monocytes % 2 % Eosinophils % 2 % Basophils % 0 % Neutrophils # 23.7 H (1.3-7.7) k/uL Lymphocytes # 1.5 (1.0-4.8) k/uL Monocytes # 0.6 (0-1.0) k/uL Eosinophils # 0.4 (0-0.7) k/uL Basophils # 0.1 (0-0.2) k/uL VBG pH (7.31-7.41) VBG pCO2 (37-51) mmHg VBG HCO3 (24-28) mmol/L Sodium 134 L (137-145) mmol/L Potassium 3.8 (3.5-5.1) mmol/L Chloride 105 (98-107) mmol/L Carbon Dioxide 8 L* (22-30) mmol/L Anion Gap 21 mmol/L BUN 12 (7-17) mg/dL Creatinine 0.43 L (0.52-1.04) mg/dL Est GFR (CKD-EPI)AfAm >90 (>60 ml/min/1.73 sqM) Est GFR (CKD-EPI)NonAf >90 (>60 ml/min/1.73 sqM) Glucose 108 H (74-99) mg/dL Plasma Lactic Acid Luis Enrique (0.7-2.0) mmol/L Calcium 11.9 H (8.4-10.2) mg/dL Total Bilirubin 1.2 (0.2-1.3) mg/dL AST 23 (14-36) U/L ALT 18 (4-34) U/L Alkaline Phosphatase 153 H (38-126) U/L Troponin I <0.012 (0.000-0.034) ng/mL Total Protein 7.9 (6.3-8.2) g/dL Albumin 4.6 (3.5-5.0) g/dL Amylase 50 (30-110) U/L Lipase 33 (23-300) U/L Influenza Type A (PCR) (Not Detectd) Influenza Type B (PCR) (Not Detectd) RSV (PCR) (Not Detectd) SARS-CoV-2 (PCR) (Not Detectd) Blood Type Blood Type Recheck Bld Type Recheck Status Antibody Screen Spec Expiration Date 01/31/24 01/31/24 01/31/24 Range/Units 21:36 22:27 23:07 WBC (3.8-10.6) k/uL RBC (3.80-5.40) m/uL Hgb (11.4-16.0) gm/dL Hct (34.0-46.0) % MCV (80.0-100.0) fL MCH (25.0-35.0) pg MCHC (31.0-37.0) g/dL RDW (11.5-15.5) % Plt Count (150-450) k/uL MPV Neutrophils % % Lymphocytes % % Monocytes % % Eosinophils % % Basophils % % Neutrophils # (1.3-7.7) k/uL Lymphocytes # (1.0-4.8) k/uL Monocytes # (0-1.0) k/uL Eosinophils # (0-0.7) k/uL Basophils # (0-0.2) k/uL VBG pH (7.31-7.41) VBG pCO2 (37-51) mmHg VBG HCO3 (24-28) mmol/L Sodium (137-145) mmol/L Potassium (3.5-5.1) mmol/L Chloride (98-107) mmol/L Carbon Dioxide (22-30) mmol/L Anion Gap mmol/L BUN (7-17) mg/dL Creatinine (0.52-1.04) mg/dL Est GFR (CKD-EPI)AfAm (>60 ml/min/1.73 sqM) Est GFR (CKD-EPI)NonAf (>60 ml/min/1.73 sqM) Glucose (74-99) mg/dL Plasma Lactic Acid Luis Enrique 0.9 (0.7-2.0) mmol/L Calcium (8.4-10.2) mg/dL Total Bilirubin (0.2-1.3) mg/dL AST (14-36) U/L ALT (4-34) U/L Alkaline Phosphatase (38-126) U/L Troponin I (0.000-0.034) ng/mL Total Protein (6.3-8.2) g/dL Albumin (3.5-5.0) g/dL Amylase (30-110) U/L Lipase (23-300) U/L Influenza Type A (PCR) Not Detected (Not Detectd) Influenza Type B (PCR) Not Detected (Not Detectd) RSV (PCR) Not Detected (Not Detectd) SARS-CoV-2 (PCR) Not Detected (Not Detectd) Blood Type O Positive Blood Type Recheck O Pos Bld Type Recheck Status No Antibody Screen NEGATIVE Spec Expiration Date 02/03/2024 - 233501/31/24 Range/Units 23:28 WBC (3.8-10.6) k/uL RBC (3.80-5.40) m/uL Hgb (11.4-16.0) gm/dL Hct (34.0-46.0) % MCV (80.0-100.0) fL MCH (25.0-35.0) pg MCHC (31.0-37.0) g/dL RDW (11.5-15.5) % Plt Count (150-450) k/uL MPV Neutrophils % % Lymphocytes % % Monocytes % % Eosinophils % % Basophils % % Neutrophils # (1.3-7.7) k/uL Lymphocytes # (1.0-4.8) k/uL Monocytes # (0-1.0) k/uL Eosinophils # (0-0.7) k/uL Basophils # (0-0.2) k/uL VBG pH 7.24 L (7.31-7.41) VBG pCO2 36 L (37-51) mmHg VBG HCO3 15 L (24-28) mmol/L Sodium (137-145) mmol/L Potassium (3.5-5.1) mmol/L Chloride (98-107) mmol/L Carbon Dioxide (22-30) mmol/L Anion Gap mmol/L BUN (7-17) mg/dL Creatinine (0.52-1.04) mg/dL Est GFR (CKD-EPI)AfAm (>60 ml/min/1.73 sqM) Est GFR (CKD-EPI)NonAf (>60 ml/min/1.73 sqM) Glucose (74-99) mg/dL Plasma Lactic Acid Luis Enrique (0.7-2.0) mmol/L Calcium (8.4-10.2) mg/dL Total Bilirubin (0.2-1.3) mg/dL AST (14-36) U/L ALT (4-34) U/L Alkaline Phosphatase (38-126) U/L Troponin I (0.000-0.034) ng/mL Total Protein (6.3-8.2) g/dL Albumin (3.5-5.0) g/dL Amylase (30-110) U/L Lipase (23-300) U/L Influenza Type A (PCR) (Not Detectd) Influenza Type B (PCR) (Not Detectd) RSV (PCR) (Not Detectd) SARS-CoV-2 (PCR) (Not Detectd) Blood Type Blood Type Recheck Bld Type Recheck Status Antibody Screen Spec Expiration Date Disposition Clinical Impression: Upper GI bleed, Alcoholic ketoacidosis Disposition: OTHER INSTITUTION NOT DEFINED Condition: Stable Referrals: Henok More MD [Primary Care Provider] - 1-2 days Time of Disposition: 23:50 - Out of Hospital Transfer - Req. Specs Out of Hospital Transfer - Requested Specifics: Other [facility] Center ([facility])
[2024-01-31] MEDS: HYDROmorphone 1 MG/ML 1 ML SYRINGE IVP STA (21:46)
[2024-01-31] MEDS: SODIUM CHLORIDE 0.9% 1,000 ML IV ONE (21:46)
[2024-01-31 22:02] VITALS: BP 146/101; PULSE 130; RESP 18
[2024-01-31 22:06] LABS: ALT 18 U/L (4-34); African American GFR (CKD) >90 (>60 ml/min/1.73 sqM); Albumin 4.6 g/dL (3.5-5.0); Amylase 50 U/L (30-110); Anion Gap 21 mmol/L; Blood Urea Nitrogen 12 mg/dL (7-17); Calcium 11.9 mg/dL (8.4-10.2); Chloride 105 mmol/L (98-107); Glucose 108 mg/dL (74-99); Lipase 33 U/L (23-300); Non-African American GFR(CKD) >90 (>60 ml/min/1.73 sqM); Sodium 134 mmol/L (137-145); Total Bilirubin 1.2 mg/dL (0.2-1.3); Total Protein 7.9 g/dL (6.3-8.2)
[2024-01-31 22:21] LABS: AST 23 U/L (14-36); Alkaline Phosphatase 153 U/L (38-126); Carbon Dioxide 8 mmol/L (22-30); Potassium 3.8 mmol/L (3.5-5.1)
[2024-01-31] MEDS ORDERED: LORazepam 2 MG/ML INJ IV PRN ×3 (22:43)
[2024-01-31] MEDS: MAG HYDROX/AL HYDROX/SIMETH 30 ML, HYOSCYAMINE ELIXIR 10 ML, LIDOCAINE VISCOUS 2% 10 ML PO STA ×2 (22:49→23:06)
[2024-01-31] MEDS: THIAMINE 100 MG/ML 2 ML VIAL IVP SCH (22:50)
[2024-02-01 00:09] LABS: VBG PH 7.24 (7.31-7.41)
--- NOTE | 2024-02-01 00:10 | CT ---
EXAMINATION TYPE: CT abdomen pelvis w con CT DLP: 730.4 mGycm, Automated exposure control for dose reduction was used. DATE OF EXAM: 01/31/2024 9:22 PM COMPARISON: None. CLINICAL INDICATION:Female, 43 years old with history of abdominal pain; vomiting x 1 week. states vo hermleindo is now black. hx of gastric ulcers TECHNIQUE: Axial CT of the abdomen and pelvis. Sagittal and coronal reformats were created on a [facility] workstation. Contrast used:100 mL of Isovue 300 with IV Contrast, (none if empty) Oral contrast used: without Oral Contrast (none if empty) FINDINGS: LOWER CHEST: Mild scarring or subsegmental atelectasis. Heart size upper normal with mild coronary ca lcifications. ABDOMEN LIVER: Small focus of low-attenuation in the anterior liver along the fissure for ligamentum teres, m ost consistent with focal fat. Otherwise unremarkable liver. GALLBLADDER AND BILE DUCTS: Unremarkable gallbladder. No biliary ductal dilatation. PANCREAS: Unremarkable. SPLEEN: Unremarkable. ADRENAL GLANDS: Unremarkable. KIDNEYS AND URETERS: Kidneys enhance symmetrically. No evidence of hydronephrosis or visible renal ca lculus. The ureters are unremarkable. PELVIS BLADDER: Unremarkable REPRODUCTIVE: Uterus is present, is slightly anteflexed and deviated into the right pelvis. Bilateral ovaries are unremarkable. ABDOMEN & PELVIS STOMACH AND BOWEL: Moderate thickened appearance of the proximal gastric wall. Stomach is otherwise m ostly fluid-filled and mildly distended. The duodenal sweep is unremarkable. Nonobstructive bowel pat tern. Normal appearance of the appendix. Moderate stool throughout the colon with some air is nondist ended and not well assessed. A few diverticula are suggested without evidence of diverticulitis. PERITONEUM/RETROPERITONEUM: No evidence of pneumoperitoneum or free fluid. VASCULATURE: Aorta and major branches are grossly unremarkable. No AAA. Portal veins are enhancing. Splenic vein is patent. LYMPH NODES: No gross evidence for lymphadenopathy. SOFT TISSUE/ABDOMINAL WALL: Unremarkable MUSCULOSKELETAL: No acute osseous abnormalities. Mild disc degeneration changes are present throughou t the thoracolumbar spine. Mild to moderate apex left curvature of the spine centered around L3. IMPRESSION: 1. No evidence of bowel obstruction, free fluid or free air. Normal appendix. 2. Mildly thickened appearance of the gastric wall, may be due to incomplete distention but is dale rning for possible inflammatory thickening versus neoplasm. Follow-up clinically.
== END 2024-02-01 00:34 | disposition other institution (70) ==
LOC: EC 15:17
DX: K92.2 Gastrointestinal hemorrhage, unspecified (principal); E87.29 Other acidosis; F10.90 Alcohol use, unspecified, uncomplicated; R00.0 Tachycardia, unspecified; F17.200 Nicotine dependence, unspecified, uncomplicated; Z87.11 Personal history of peptic ulcer disease
CPT/HCPCS: 99285; 96374; 96375 ×3; 96361; 36415; 93005; 86900; 86901; 80053; 82150; 82803; 83605; 83690; 84484; 85025; 86850; 87636; 74177; J2270; J3411; J1170; C9113; Q9967

== ENCOUNTER 2024-11-24 05:11 | Inpatient (IN) | payer OTHER ==
--- NOTE | 2024-11-24 05:53 | ED ---
General Adult HPI - General Source: patient Mode of arrival: wheelchair <Lila Pedraza - Last Filed: 11/24/24 05:53> - General Source: patient, family, RN notes reviewed <Yessi Stafford - Last Filed: 11/24/24 14:40> - General Chief complaint: Alcohol Stated complaint: Chest pain, vomiting Time Seen by Provider: 11/24/24 05:45 - History of Present Illness Initial comments: This is a 44-year-old female with a history of alcohol abuse presenting to the emergency department with 2 of her daughters for complaint of persistent nausea, chest pain, epigastric abdominal pain and anxiety. Patient reports that she has been having a difficult time keeping down foods and liquids over the past day and has been having profuse nausea and vomiting over the past 2 days. Daughter is at bedside states that patient has a history of alcohol abuse and has been drinking upwards of 1/5 of liquor per day over the past week and a half and is concerned that she may be going through alcohol withdrawal. Patient does have a history of seizures due to alcohol withdrawal. Denies drug use. Daughter at bedside states that patient has a history of paranoid schizophrenia and has taken a dose of BuSpar over the last few days. Daughter also reports the patient has a history of gastric ulcers. Patient denies current medication use or previous abdominal surgeries. Family reports her last drink was within the last 12 hours. (Yessi Stafford) - Related Data Home Medications Medication Instructions Recorded Confirmed No Known Home Medications 11/24/24 11/24/24 Allergies Allergy/AdvReac Type Severity Reaction Status Date / Time No Known Allergies Allergy Verified 11/24/24 09:12 Review of Systems ROS Other: All systems not noted in ROS Statement are negative. <Lila Pedraza - Last Filed: 11/24/24 05:53> ROS Other: All systems not noted in ROS Statement are negative. <Yessi Stafford - Last Filed: 11/24/24 14:40> ROS Statement: Those systems with pertinent positive or pertinent negative responses have been documented in the HPI. Past Medical History Past Medical History: Asthma, COPD, Fibromyalgia, Memory Impairment Additional Past Medical History / Comment(s): freq nausea, elevated enzymes, b leeding with urination, sciatica, anemia, heart murmur as a child, hard to move arms and legs (1.5 years ago) History of Any Multi-Drug Resistant Organisms: None Reported Past Surgical History: No Surgical Hx Reported Past Anesthesia/Blood Transfusion Reactions: No Reported Reaction Additional Past Anesthesia/Blood Transfusion Reaction / Comment(s): never has had general anesthesia,has had epidural in past with labor. Past Psychological History: ADD/ADHD, Anxiety, Depression Smoking Status: Current some day smoker Past Alcohol Use History: Abuse, Daily, Heavy Past Drug Use History: Marijuana - Past Family History Mother Family Medical History: CVA/TIA, Fibromyalgia Additional Family Medical History / Comment(s): MTHR bleeding disorder, fibromyalgia, athritis; sents in brain Sister(s) Additional Family Medical History / Comment(s): "sticky platelet disorder" <Lila Pedraza - Last Filed: 11/24/24 05:53> General Exam General appearance: alert, anxious Eye exam: Present: normal appearance, PERRL, EOMI. Absent: scleral icterus, conjunctival injection, periorbital swelling Neck exam: Present: normal inspection. Absent: tenderness, meningismus, lymphadenopathy Respiratory exam: Present: normal lung sounds bilaterally. Absent: respiratory distress, wheezes, rales, rhonchi, stridor Cardiovascular Exam: Present: normal rhythm, tachycardia, normal heart sounds. Absent: systolic murmur, diastolic murmur, rubs, gallop, clicks GI/Abdominal exam: Present: soft, tenderness (epigastric), normal bowel sounds. Absent: distended, guarding, rebound, rigid Extremities exam: Present: normal inspection, full ROM, normal capillary refill. Absent: tenderness, pedal edema, joint swelling, calf tenderness Back exam: Present: normal inspection Skin exam: Present: warm, dry, intact, normal color. Absent: rash <Yessi Stafford - Last Filed: 11/24/24 14:40> Course Vital Signs 11/24/24 11/24/24 11/24/24 05:16 06:30 07:26 Temperature 98.3 F 97.3 F L Pulse Rate 143 H 128 H 134 H Respiratory 20 18 16 Rate Blood Pressure 176/135 161/104 156/116 O2 Sat by Pulse 100 99 97 Oximetry 11/24/24 11/24/24 11/24/24 07:44 08:03 09:03 Temperature 97.6 F Pulse Rate 126 H 123 H 116 H Respiratory 18 16 18 Rate Blood Pressure 165/110 149/106 152/103 O2 Sat by Pulse 100 100 100 Oximetry 11/24/24 11/24/24 10:04 12:29 Temperature 99.1 F 99.1 F Pulse Rate 112 H 118 H Respiratory 14 20 Rate Blood Pressure 140/119 163/97 O2 Sat by Pulse 99 100 Oximetry Medical Decision Making - Lab Data Result diagrams: 11/24/24 05:52 11/24/24 05:52 <Yessi Stafford - Last Filed: 11/24/24 14:40> - Medical Decision Making Was pt. sent in by a medical professional or institution (, PA, RF DESIGN ENGINEER, urgent care, hospital, or prison...) When possible be specific @ -No Did you speak to anyone other than the patient for history (EMS, parent, family, police, friend...)? What history was obtained from this source @ -Spoke to patient's daughters at bedside to the patient with a history of severe alcohol abuse and last drink was approximately 12 hours ago. Did you review nursing and triage notes (agree or disagree)? Why? @ -I reviewed and agree with nursing and triage notes Were old charts reviewed (outside hosp., previous admission, EMS record, old EKG, old radiological studies, urgent care reports/EKG's, prison records)? Report findings @ -Reviewed patient's emergency department visit note from 01/31/2024 where she presented with nausea and vomiting and dark emesis where she was transferred to [facility] with concern for alcoholic ketoacidosis and upper GI bleed Differential Diagnosis (chest pain, altered mental status, abdominal pain women, abdominal pain men, vaginal bleeding, weakness, fever, dyspnea, syncope, headache, dizziness, GI bleed, back pain, seizure, CVA, palpatations, mental health, musculoskeletal)? @ -Differential Abdominal Pain Women: Appendicitis, Cholecystitis, diverticulosis, ischemic bowel, pancreatitis, hepatitis, UTI, gastroenteritis, AAA, incarcerated hernia, bowel obstruction, constipation, inflammatory bowel, hepatitis, peptic ulcer disease, splenic infarction, perforated viscus, vulvitis, ovarian torsion, PID, kidney stone, placenta abruption, this is not meant to be an all-inclusive list EKG interpreted by me (3pts min.). @ -none X-rays interpreted by me (1pt min.). @ -None done CT interpreted by me (1pt min.). @ -None done U/S interpreted by me (1pt. min.). @ -None done What testing was considered but not performed or refused? (CT, X-rays, U/S, labs)? Why? @ -None What meds were considered but not given or refused? Why? @ -None Did you discuss the management of the patient with other professionals (professionals i.e. , PA, RF DESIGN ENGINEER, lab, RT, psych nurse, manager social services, sleeve machine tender, t eacher, jail officer, family caseworker)? Give summary @ -Dr. More for admission, who has accepted and recommends continued fluid hydration Was smoking cessation discussed for >3mins.? @ -No Was critical care preformed (if so, how long)? @ -No Were there social determinants of health that impacted care today? How? (Homelessness, low income, unemployed, alcoholism, drug addiction, transportation, low edu. Level, literacy, decrease access to med. care, senior living, rehab)? @ -No Was there de-escalation of care discussed even if they declined (Discuss DNR or withdrawal of care, Hospice)? DNR status @ -No What co-morbidities impacted this encounter? (DM, HTN, Smoking, COPD, CAD, Cancer, CVA, ARF, Chemo, Hep., AIDS, mental health diagnosis, sleep apnea, morbid obesity)? @ -None Was patient admitted / discharged? Hospital course, mention meds given and route, prescriptions, significant lab abnormalities, going to OR and other pertinent info. @ -Admitted. 44-year-old female presenting with persistent nausea and vomiting. The anxious and tremulous on my examination in addition to hypertensive and tachycardic. She is provided with IV fluids, Ativan with concern for alcohol withdrawal and antiemetics. Labs remarkable for leukocytosis of 21.3 with left shift neutrophils and 19.2. Patient noted to be severely acidotic CO2 of less than 5 patient's toxicology including salicylates, acetaminophen, serum alcohol less than 10. Patient's lactic acid elevated at 0.7. VBG remarkable for a bicarb at 9 and venous blood gas pH is 7.13. Patient is provided with additional fluids at time alerted of acidosis. Patient will be admitted to internal medicine with aggressive fluid hydration and repeat CMP to ensure resolved acidosis. She will be continued on CIWA protocol. A serum osmolality has been sent however laboratory reveals that this test is a send out. Case discussed with my attending Dr. Alejandro Undiagnosed new problem with uncertain prognosis? @ -No Drug Therapy requiring intensive monitoring for toxicity (Heparin, Nitro, Insulin, Cardizem)? @ -No Were any procedures done? @ -No Diagnosis/symptom? @ -alcohol withdrawal, acidosis Acute, or Chronic, or Acute on Chronic? @ -acute Uncomplicated (without systemic symptoms) or Complicated (systemic symptoms)? @ -complicated Side effects of treatment? @ -No Exacerbation, Progression, or Severe Exacerbation? @ -No Poses a threat to life or bodily function? How? (Chest pain, [place], [place], pneumonia, PE, COPD, DKA, ARF, appy, cholecystitis, CVA, Diverticulitis, Homicidal, Suicidal, threat to staff... and all critical care pts) @ -No (Yessi Stafford) - Lab Data Lab Results 11/24/24 11/24/24 11/24/24 Range/Units 05:52 05:52 05:52 WBC 21.3 H (3.8-10.6) k/uL RBC 4.14 (3.80-5.40) m/uL Hgb 15.0 (11.4-16.0) gm/dL Hct 45.4 (34.0-46.0) % MCV 109.6 H (80.0-100.0) fL MCH 36.3 H (25.0-35.0) pg MCHC 33.2 (31.0-37.0) g/dL RDW 18.1 H (11.5-15.5) % Plt Count 229 (150-450) k/uL MPV 8.5 Neutrophils % 90 % Lymphocytes % 4 % Monocytes % 5 % Eosinophils % 1 % Basophils % 0 % Neutrophils # 19.2 H (1.3-7.7) k/uL Lymphocytes # 0.8 L (1.0-4.8) k/uL Monocytes # 1.0 (0-1.0) k/uL Eosinophils # 0.2 (0-0.7) k/uL Basophils # 0.0 (0-0.2) k/uL Manual Slide Review Performed Anisocytosis Slight Macrocytosis Marked A PT 10.9 (10.0-12.5) sec INR 1.0 (<1.2) VBG pH (7.31-7.41) VBG pCO2 (37-51) mmHg VBG HCO3 (24-28) mmol/L Sodium 130 L (137-145) mmol/L Potassium 4.8 (3.5-5.1) mmol/L Chloride 95 L (98-107) mmol/L Carbon Dioxide <5 L* (22-30) mmol/L Anion Gap mmol/L BUN 12 (7-17) mg/dL Creatinine 0.81 (0.52-1.04) mg/dL Est GFR (CKD-EPI)AfAm >90 (>60 ml/min/1.73 sqM) Est GFR (CKD-EPI)NonAf 90 (>60 ml/min/1.73 sqM) Glucose 103 H (74-99) mg/dL POC Glucose (mg/dL) (70-110) mg/dL POC Glu [employer] ID Plasma Lactic Acid Luis Enrique (0.7-2.0) mmol/L Calcium 10.1 (8.4-10.2) mg/dL Phosphorus 2.5 (2.5-4.5) mg/dL Magnesium 1.6 (1.6-2.3) mg/dL Total Bilirubin 1.8 H (0.2-1.3) mg/dL AST 30 (14-36) U/L ALT 15 (4-34) U/L Alkaline Phosphatase 188 H (38-126) U/L Total Protein 10.2 H (6.3-8.2) g/dL Albumin 5.8 H (3.5-5.0) g/dL Lipase 48 (23-300) U/L Salicylates mg/dL Acetaminophen ug/mL Serum Alcohol <10 mg/dL 11/24/24 11/24/24 11/24/24 Range/Units 06:55 08:52 08:52 WBC (3.8-10.6) k/uL RBC (3.80-5.40) m/uL Hgb (11.4-16.0) gm/dL Hct (34.0-46.0) % MCV (80.0-100.0) fL MCH (25.0-35.0) pg MCHC (31.0-37.0) g/dL RDW (11.5-15.5) % Plt Count (150-450) k/uL MPV Neutrophils % % Lymphocytes % % Monocytes % % Eosinophils % % Basophils % % Neutrophils # (1.3-7.7) k/uL Lymphocytes # (1.0-4.8) k/uL Monocytes # (0-1.0) k/uL Eosinophils # (0-0.7) k/uL Basophils # (0-0.2) k/uL Manual Slide Review Anisocytosis Macrocytosis PT (10.0-12.5) sec INR (<1.2) VBG pH 7.13 L* (7.31-7.41) VBG pCO2 26 L (37-51) mmHg VBG HCO3 9 L* (24-28) mmol/L Sodium (137-145) mmol/L Potassium (3.5-5.1) mmol/L Chloride (98-107) mmol/L Carbon Dioxide (22-30) mmol/L Anion Gap mmol/L BUN (7-17) mg/dL Creatinine (0.52-1.04) mg/dL Est GFR (CKD-EPI)AfAm (>60 ml/min/1.73 sqM) Est GFR (CKD-EPI)NonAf (>60 ml/min/1.73 sqM) Glucose (74-99) mg/dL POC Glucose (mg/dL) 119 H (70-110) mg/dL POC Glu [employer] ID [facility] [place] Plasma Lactic Acid Luis Enrique 0.7 (0.7-2.0) mmol/L Calcium (8.4-10.2) mg/dL Phosphorus (2.5-4.5) mg/dL Magnesium (1.6-2.3) mg/dL Total Bilirubin (0.2-1.3) mg/dL AST (14-36) U/L ALT (4-34) U/L Alkaline Phosphatase (38-126) U/L Total Protein (6.3-8.2) g/dL Albumin (3.5-5.0) g/dL Lipase (23-300) U/L Salicylates mg/dL Acetaminophen ug/mL Serum Alcohol mg/dL 11/24/24 Range/Units 09:10 WBC (3.8-10.6) k/uL RBC (3.80-5.40) m/uL Hgb (11.4-16.0) gm/dL Hct (34.0-46.0) % MCV (80.0-100.0) fL MCH (25.0-35.0) pg MCHC (31.0-37.0) g/dL RDW (11.5-15.5) % Plt Count (150-450) k/uL MPV Neutrophils % % Lymphocytes % % Monocytes % % Eosinophils % % Basophils % % Neutrophils # (1.3-7.7) k/uL Lymphocytes # (1.0-4.8) k/uL Monocytes # (0-1.0) k/uL Eosinophils # (0-0.7) k/uL Basophils # (0-0.2) k/uL Manual Slide Review Anisocytosis Macrocytosis PT (10.0-12.5) sec INR (<1.2) VBG pH (7.31-7.41) VBG pCO2 (37-51) mmHg VBG HCO3 (24-28) mmol/L Sodium (137-145) mmol/L Potassium (3.5-5.1) mmol/L Chloride (98-107) mmol/L Carbon Dioxide (22-30) mmol/L Anion Gap mmol/L BUN (7-17) mg/dL Creatinine (0.52-1.04) mg/dL Est GFR (CKD-EPI)AfAm (>60 ml/min/1.73 sqM) Est GFR (CKD-EPI)NonAf (>60 ml/min/1.73 sqM) Glucose (74-99) mg/dL POC Glucose (mg/dL) (70-110) mg/dL POC Glu [employer] ID Plasma Lactic Acid Luis Enrique (0.7-2.0) mmol/L Calcium (8.4-10.2) mg/dL Phosphorus (2.5-4.5) mg/dL Magnesium (1.6-2.3) mg/dL Total Bilirubin (0.2-1.3) mg/dL AST (14-36) U/L ALT (4-34) U/L Alkaline Phosphatase (38-126) U/L Total Protein (6.3-8.2) g/dL Albumin (3.5-5.0) g/dL Lipase (23-300) U/L Salicylates <1.0 mg/dL Acetaminophen <10.0 ug/mL Serum Alcohol mg/dL Disposition <Lila Pedraza - Last Filed: 11/24/24 05:53> Decision to Admit Reason: Admit from EC Decision Date: 11/24/24 Decision Time: 12:50 <Yessi Stafford - Last Filed: 11/24/24 14:40> Clinical Impression: Acidosis, unspecified, Alcohol abuse, Alcohol withdrawal Disposition: ADMITTED IP TO THIS [facility] Condition: Serious
[2024-11-24] MEDS: SODIUM CHLORIDE 0.9% 1,000 ML IV STA (06:27)
[2024-11-24 06:56] LABS: Glucose,Whole Blood 119 mg/dL (70-110)
[2024-11-24 07:15] LABS: Anisocytosis Slight; Basophils % (A) 0 %; Eosinophils # (A) 0.2 k/uL (0-0.7); Eosinophils % (A) 1 %; HCT 45.4 % (34.0-46.0); Lymphocytes # (A) 0.8 k/uL (1.0-4.8); Lymphocytes % (A) 4 %; MCH 36.3 pg (25.0-35.0); MCHC 33.2 g/dL (31.0-37.0); MCV 109.6 fL (80.0-100.0); Macrocytosis Marked; Mean Platelet Volume 8.5; Monocytes % (A) 5 %; Neutrophils # (A) 19.2 k/uL (1.3-7.7); Neutrophils % (A) 90 %; Platelet Count 229 k/uL (150-450); RBC 4.14 m/uL (3.80-5.40); RDW 18.1 % (11.5-15.5); WBC 21.3 k/uL (3.8-10.6)
[2024-11-24 07:31] LABS: ALT 15 U/L (4-34); African American GFR (CKD) >90 (>60 ml/min/1.73 sqM); Alcohol <10 mg/dL; Blood Urea Nitrogen 12 mg/dL (7-17); Calcium 10.1 mg/dL (8.4-10.2); Chloride 95 mmol/L (98-107); Lipase 48 U/L (23-300); Non-African American GFR(CKD) 90 (>60 ml/min/1.73 sqM); Phosphorus 2.5 mg/dL (2.5-4.5); Sodium 130 mmol/L (137-145); Total Bilirubin 1.8 mg/dL (0.2-1.3)
[2024-11-24] MEDS: SODIUM CHLORIDE 0.9% 1,500 ML IV STA (07:31)
[2024-11-24] MEDS: LORazepam 2 MG/ML INJ IV STA (07:32)
[2024-11-24] MEDS: ONDANSETRON 4 MG/2 ML VIAL IVP STA (07:32)
[2024-11-24] MEDS: PANTOPRAZOLE 40 MG/10 ML VIAL IVP STA (07:37)
[2024-11-24 07:43] LABS: Prothrombin Time 10.9 sec (10.0-12.5)
[2024-11-24 08:07] LABS: Carbon Dioxide <5 mmol/L (22-30)
[2024-11-24 08:08] LABS: Glucose 103 mg/dL (74-99); Total Protein 10.2 g/dL (6.3-8.2)
[2024-11-24 08:09] LABS: AST 30 U/L (14-36); Albumin 5.8 g/dL (3.5-5.0); Alkaline Phosphatase 188 U/L (38-126); Magnesium 1.6 mg/dL (1.6-2.3)
[2024-11-24 08:10] LABS: Potassium 4.8 mmol/L (3.5-5.1)
[2024-11-24] MEDS ORDERED: LORazepam 2 MG/ML INJ IV PRN (08:17)
[2024-11-24] MEDS: LACTATED RINGERS 1,000 ML BAG IV STA (08:51)
[2024-11-24 09:03] LABS: VBG PH 7.13 (7.31-7.41)
[2024-11-24 09:29] LABS: Acetaminophen <10.0 ug/mL; Salicylate <1.0 mg/dL
[2024-11-24] MEDS ORDERED: NALOXONE 0.4 MG/ML 1 ML VIAL IV PRN (12:52)
[2024-11-24] MEDS: SODIUM CHLORIDE 0.9% 1,000 ML IV SCH (13:48)
[2024-11-24 14:45] LABS: Amphetamine Screen,Urine Not Detected (NotDetected); Barbiturate Screen,Urine Not Detected (NotDetected); Benzodiazepines Screen,Urine Detected (NotDetected); Cocaine Screen,Urine Not Detected (NotDetected); Methadone Screen, Urine Not Detected (NotDetected); Opiate Screen,Urine Not Detected (NotDetected); Oxycodone Screen, Urine Not Detected (NotDetected); Phencyclidine Screen,Urine Not Detected (NotDetected); Tricyclic Antidepressant,Urine Not Detected (NotDetected); Urn Cannabinoid Scrn Not Detected (NotDetected)
[2024-11-24 15:07] LABS: ALT 10 U/L (4-34); African American GFR (CKD) >90 (>60 ml/min/1.73 sqM); Blood Urea Nitrogen 8 mg/dL (7-17); Calcium 8.8 mg/dL (8.4-10.2); Chloride 102 mmol/L (98-107); Glucose 93 mg/dL (74-99); Non-African American GFR(CKD) >90 (>60 ml/min/1.73 sqM); Potassium 3.6 mmol/L (3.5-5.1); Total Bilirubin 1.1 mg/dL (0.2-1.3)
[2024-11-24 15:16] LABS: AST 17 U/L (14-36); Albumin 4.3 g/dL (3.5-5.0); Alkaline Phosphatase 139 U/L (38-126); Anion Gap 21 mmol/L; Sodium 131 mmol/L (137-145)
[2024-11-24 15:23] LABS: Carbon Dioxide 8 mmol/L (22-30)
[2024-11-24] MEDS: LORazepam 2 MG/ML INJ IV PRN ×2 (16:50→23:06)
--- NOTE | 2024-11-24 22:44 | HP ---
HISTORY AND PHYSICAL CHIEF COMPLAINT: Nausea, vomiting, acute alcohol intoxication, and alcoholism with DTs. HISTORY OF PRESENT ILLNESS: This is another admission for this 44-year-old chronic alcoholic. She presented to the emergency room with the above-mentioned symptoms. She is also in DTs. She has not apparently had a drink for the last 3 or 4 days. CO2 was less than 5. REVIEW OF SYSTEMS: She denies any headaches, chest pain, abdominal pain, etc. She is vomiting, but without hematemesis or diarrhea. Past medical history, family history, personal and social histories are otherwise unremarkable or noncontributory. PHYSICAL EXAMINATION: VITAL SIGNS: Pulse is 110. HEAD, EARS, EYES, NOSE, MOUTH, AND THROAT: Normal. CHEST: Clear. CARDIAC: Normal except for tachycardia. ABDOMEN: Soft, nontender without masses or visceromegaly. EXTREMITIES: Normal. NEUROLOGIC: She is intact except for DTs. ASSESSMENT: She is admitted to the hospital with diagnoses of, 1. Acute alcohol intoxication. 2. Chronic alcoholism. 3. Intractable nausea and vomiting. 4. Delirium tremens. PLAN: 1. Bed rest. 2. IV fluids. 3. Antiemetics. 4. CIWA protocol. MMODL / IJN: [id number] /
[2024-11-25 00:30] LABS: Amorphous Sediment,Urine Occasional /hpf; Appearance,Urine Cloudy (Clear); Bacteria,Urine Few /hpf; Bilirubin,Urine 1+ (Negative); Blood,Urine Trace (Negative); Color,Urine Colorless; Glucose,Urine (UA) Negative (Negative); Hyaline Casts,Urine 15 /lpf (0-2); Ketones,Urine 4+ (Negative); Leukocyte Esterase,Urine Trace (Negative); Mucus,Urine Rare /hpf; Nitrite,Urine Negative (Negative); Protein,Urine 1+ (Negative); RBC,Urine <1 /hpf (0-5); Specific Gravity,Urine 1.015 (1.001-1.035); Squamous Epithelial Cell,Urine 3 /hpf (0-4); Urobilinogen,Urine <2.0 mg/dL (<2.0); WBC,Urine 6 /hpf (0-5)
[2024-11-25 07:59] LABS: Anisocytosis Slight; Basophils % (A) 0 %; Eosinophils # (A) 0.1 k/uL (0-0.7); Eosinophils % (A) 0 %; HCT 35.7 % (34.0-46.0); Lymphocytes # (A) 1.1 k/uL (1.0-4.8); Lymphocytes % (A) 7 %; MCH 35.5 pg (25.0-35.0); MCHC 33.3 g/dL (31.0-37.0); MCV 106.6 fL (80.0-100.0); Macrocytosis Marked; Monocytes # (A) 0.8 k/uL (0-1.0); Monocytes % (A) 5 %; Neutrophils # (A) 13.4 k/uL (1.3-7.7); Neutrophils % (A) 86 %; Platelet Count 201 k/uL (150-450); RBC 3.35 m/uL (3.80-5.40); RDW 18.7 % (11.5-15.5); WBC 15.6 k/uL (3.8-10.6)
[2024-11-25 08:09] LABS: ALT 9 U/L (4-34); AST 14 U/L (14-36); African American GFR (CKD) >90 (>60 ml/min/1.73 sqM); Alkaline Phosphatase 134 U/L (38-126); Anion Gap 17 mmol/L; Blood Urea Nitrogen 6 mg/dL (7-17); Calcium 9.2 mg/dL (8.4-10.2); Carbon Dioxide 15 mmol/L (22-30); Chloride 101 mmol/L (98-107); Glucose 90 mg/dL (74-99); Non-African American GFR(CKD) >90 (>60 ml/min/1.73 sqM); Potassium 2.8 mmol/L (3.5-5.1); Sodium 133 mmol/L (137-145); Total Bilirubin 0.8 mg/dL (0.2-1.3); Total Protein 6.7 g/dL (6.3-8.2)
[2024-11-25 08:19] LABS: HGB 11.9 gm/dL (11.4-16.0)
[2024-11-25] MEDS: PANTOPRAZOLE 40 MG/10 ML VIAL IV SCH (08:35)
[2024-11-25] MEDS: ONDANSETRON 4 MG/2 ML VIAL IVP PRN (15:29)
[2024-11-25] MEDS: ACETAMINOPHEN TAB 325 MG TAB PO PRN (16:10)
--- NOTE | 2024-11-26 02:35 | PN ---
PROGRESS NOTE DATE OF SERVICE: 11/25/2024 CHIEF COMPLAINT: Acute alcohol intoxication and DTs. HISTORY OF PRESENT ILLNESS: This lady is still in DTs. She is complaining of a crampy abdominal pain and nausea. PHYSICAL EXAMINATION: CHEST: Clear. CARDIAC: Sinus tachycardia. ABDOMEN: Soft and nontender. IMPRESSION: 1. Acute alcohol intoxication. 2. Chronic alcoholism. 3. Delirium tremens. 4[place] [address]. PLAN: Continue with IV fluids, rehydration, and CIWA protocol. MMODL / IJN: [id number] /
[2024-11-26 11:46] LABS: Anisocytosis Slight; Basophils % (A) 0 %; Eosinophils # (A) 0.1 k/uL (0-0.7); Eosinophils % (A) 1 %; HCT 29.6 % (34.0-46.0); HGB 10.1 gm/dL (11.4-16.0); Lymphocytes # (A) 1.1 k/uL (1.0-4.8); Lymphocytes % (A) 16 %; MCHC 34.1 g/dL (31.0-37.0); MCV 105.7 fL (80.0-100.0); Macrocytosis Marked; Mean Platelet Volume 8.1; Monocytes # (A) 0.5 k/uL (0-1.0); Monocytes % (A) 7 %; Neutrophils # (A) 5.3 k/uL (1.3-7.7); Neutrophils % (A) 74 %; Platelet Count 187 k/uL (150-450); RDW 18.1 % (11.5-15.5); WBC 7.1 k/uL (3.8-10.6)
[2024-11-26] MEDS: FOLIC ACID 1 MG TAB PO SCH (11:55)
[2024-11-26] MEDS: THIAMINE 100 MG TAB PO SCH (11:55)
[2024-11-26 11:59] LABS: ALT 9 U/L (4-34); AST 18 U/L (14-36); African American GFR (CKD) >90 (>60 ml/min/1.73 sqM); Alkaline Phosphatase 100 U/L (38-126); Anion Gap 7 mmol/L; Blood Urea Nitrogen 6 mg/dL (7-17); Calcium 8.4 mg/dL (8.4-10.2); Carbon Dioxide 25 mmol/L (22-30); Chloride 100 mmol/L (98-107); Glucose 108 mg/dL (74-99); Non-African American GFR(CKD) >90 (>60 ml/min/1.73 sqM); Sodium 132 mmol/L (137-145); Total Bilirubin 0.8 mg/dL (0.2-1.3); Total Protein 5.4 g/dL (6.3-8.2)
[2024-11-26 12:11] LABS: Potassium 2.5 mmol/L (3.5-5.1)
[2024-11-26] MEDS ORDERED: MAG HYDROX/AL HYDROX/SIMETH 30 ML CUP PO PRN (12:56)
[2024-11-26] MEDS: POTASSIUM CHLORIDE ER 20 MEQ TAB.ER PO STA ×2 (13:24→14:52)
[2024-11-26] MEDS: BUTALB/APAP/CAFF 50-325-40MG TAB PO PRN (13:24)
--- NOTE | 2024-11-26 14:34 | P.PN ---
Subjective Progress Note Date: 11/26/24 This is a 44-year-old female with a history of alcohol abuse presenting to the emergency department with 2 of her daughters for complaint of persistent nausea, chest pain, epigastric abdominal pain and anxiety. Patient reports that she has been having a difficult time keeping down foods and liquids over the past day and has been having profuse nausea and vomiting over the past 2 days. Daughter is at bedside states that patient has a history of alcohol abuse and has been drinking upwards of 1/5 of liquor per day over the past week and a half and is concerned that she may be going through alcohol withdrawal. 11/26. Patient seen and examined. Last CIWA score this morning is 6. Complaining of acidity in her stomach. Complaining of headache REVIEW OF SYSTEMS: CONSTITUTIONAL: No fever, no malaise,. CARDIOVASCULAR: No chest pain, no palpitations, no syncope. PULMONARY: No shortness of breath, no cough, GASTROINTESTINAL: No diarrhea, no nausea, no vomiting, no abdominal pain. NEUROLOGICAL: no weakness, PHYSICAL EXAMINATION: GENERAL: The patient is alert and oriented x3, not in any acute distress. Well developed, well nourished. HEENT: Pupils are round and equally reacting to light. EOMI. No scleral icterus. No conjunctival pallor. Normocephalic, atraumatic. No pharyngeal erythema. No thyromegaly. CARDIOVASCULAR: S1 and S2 present. No murmurs, rubs, or gallops. PULMONARY: Chest is clear to auscultation, no wheezing or crackles. ABDOMEN: Soft, nontender, nondistended, normoactive bowel sounds. No palpable organomegaly. MUSCULOSKELETAL: No joint swelling or deformity. EXTREMITIES: No cyanosis, clubbing, or pedal edema. NEUROLOGICAL: Gross neurological examination did not reveal any focal deficits. SKIN: No rashes. Assessment and plan Alcohol abuse Pending alcohol detox Hyponatremia Hypokalemia History of chronic alcoholism Monitor vital signs Monitor CBC Monitor CMP Continue CIWA protocol Continues symptom trigger based Ativan therapy Continue thiamine folic acid Increase Protonix to 40 g twice daily Ordered Fioricet Continue symptomatic treatment Labs and medication were reviewed.. Continue same treatment. Continue with symptomatic treatment. Resume home medication. Monitor labs and vitals. DVT and GI prophylaxis. Further recommendations as per clinical course of the patient Dictation was produced using [employer] dictation software. please excuse any grammatical, word or spelling errors. Objective - Vital Signs Vital signs: Vital Signs Temp 98.4 F 11/26/24 08:30 Pulse 95 11/26/24 08:30 Resp 17 11/26/24 08:30 BP 116/75 11/26/24 08:30 Pulse Ox 98 11/26/24 08:30 FiO2 Intake & Output 11/25/24 11/26/24 11/26/24 18:59 06:59 18:59 Intake Total 585 Balance 585 Weight 68 kg Intake: Intake, IV Titration 225 Amount Sodium Chloride 0.9% 1, 225 000 ml @ 75 mls/hr IV . [id number] [facility] Rx#:[id number] Oral 360 Other: Voiding Method Toilet Toilet # Voids 2 - Labs CBC & Chem 7: 11/26/24 11:35 11/26/24 11:35
--- NOTE | 2024-11-26 15:44 | CT ---
EXAMINATION TYPE: CT brain wo con DATE OF EXAM: 11/26/2024 3:32 PM COMPARISON: 02/09/2020 CLINICAL INDICATION: Female, 44 years old with history of Headache, Headache TECHNIQUE: CT of the brain is performed utilizing 3 mm thick sections through the posterior fossa and 3 mm thick sections through the remaining calvarium. Study is performed within 24 hours of arrival to the hospital. Contrast used: mL of , (none if empty) CT DLP: 1125.4 mGycm, Automated exposure control for dose reduction was used. FINDINGS: No abnormal hyperdensity is present to suggest an acute intracranial hemorrhage. No mass lesion is evident. No acute infarcts are evident. Ventricles and sulci are appropriate for the patient age. Paranasal sinuses and mastoid air cells within the [id number] are clear. IMPRESSION: 1. No acute intracranial process. Follow up MRI can be performed as clinically indicated. [facility], , 11/26/2024 3:42 PM
[2024-11-26] MEDS: PANTOPRAZOLE 40 MG/10 ML VIAL IV SCH (19:59)
[2024-11-26] MEDS: traZODone HCL 50 MG TAB PO PRN (21:04)
[2024-11-27 06:03] LABS: Anisocytosis Slight; Basophils # (A) 0.1 k/uL (0-0.2); Basophils % (A) 1 %; Eosinophils # (A) 0.1 k/uL (0-0.7); Eosinophils % (A) 2 %; HCT 29.7 % (34.0-46.0); HGB 10.2 gm/dL (11.4-16.0); Lymphocytes # (A) 1.6 k/uL (1.0-4.8); Lymphocytes % (A) 21 %; MCH 36.6 pg (25.0-35.0); MCHC 34.4 g/dL (31.0-37.0); Macrocytosis Marked; Mean Platelet Volume 8.3; Monocytes # (A) 0.5 k/uL (0-1.0); Monocytes % (A) 6 %; Neutrophils # (A) 5.4 k/uL (1.3-7.7); Neutrophils % (A) 69 %; Platelet Count 232 k/uL (150-450); RBC 2.79 m/uL (3.80-5.40); RDW 18.1 % (11.5-15.5); WBC 7.8 k/uL (3.8-10.6)
[2024-11-27 06:09] LABS: MCV 106.5 fL (80.0-100.0)
[2024-11-27 06:33] LABS: AST 21 U/L (14-36); African American GFR (CKD) >90 (>60 ml/min/1.73 sqM); Albumin 3.1 g/dL (3.5-5.0); Alkaline Phosphatase 97 U/L (38-126); Anion Gap 9 mmol/L; Blood Urea Nitrogen 4 mg/dL (7-17); Calcium 8.5 mg/dL (8.4-10.2); Carbon Dioxide 21 mmol/L (22-30); Chloride 103 mmol/L (98-107); Glucose 86 mg/dL (74-99); Non-African American GFR(CKD) >90 (>60 ml/min/1.73 sqM); Sodium 133 mmol/L (137-145); Total Bilirubin 0.5 mg/dL (0.2-1.3); Total Protein 5.4 g/dL (6.3-8.2)
[2024-11-27 06:42] LABS: ALT 19 U/L (4-34); Potassium 2.7 mmol/L (3.5-5.1)
[2024-11-27] MEDS: POTASSIUM CHLORIDE 20 MEQ in WATER FOR INJECTION 1 100ML.BAG IVPB SCH (08:07)
[2024-11-27 11:27] VITALS: RESP 18; TEMP 98.4
--- NOTE | 2024-11-27 13:32 | P.DS ---
Providers Date of admission: 11/24/24 13:01 Expected date of discharge: 11/27/24 Attending physician: Henok More Primary care physician: Henok More Hospital Course: Discharge diagnoses; Alcohol abuse Pending alcohol detox Hyponatremia Hypokalemia History of chronic alcoholism Hospital course; This is a 44-year-old female with a history of alcohol abuse presenting to the emergency department with 2 of her daughters for complaint of persistent nausea, chest pain, epigastric abdominal pain and anxiety. Patient reports that she has been having a difficult time keeping down foods and liquids over the past day and has been having profuse nausea and vomiting over the past 2 days. Daughter is at bedside states that patient has a history of alcohol abuse and has been drinking upwards of 1/5 of liquor per day over the past week and a half and is concerned that she may be going through alcohol withdrawal. 11/26. Patient seen and examined. Last CIWA score this morning is 6. Complaining of acidity in her stomach. Complaining of headache 11/27. Patient seen and examined. Potassium this morning is 2.7, replacement ordered. CT head was negative for any acute intracranial process. Patient keen to go home. Outpatient follow-up with alcohol rehab resources. PHYSICAL EXAMINATION: GENERAL: The patient is alert and oriented x3, not in any acute distress. Well developed, well nourished. HEENT: Pupils are round and equally reacting to light. EOMI. No scleral icterus. No conjunctival pallor. Normocephalic, atraumatic. No pharyngeal erythema. No thyromegaly. CARDIOVASCULAR: S1 and S2 present. No murmurs, rubs, or gallops. PULMONARY: Chest is clear to auscultation, no wheezing or crackles. ABDOMEN: Soft, nontender, nondistended, normoactive bowel sounds. No palpable organomegaly. MUSCULOSKELETAL: No joint swelling or deformity. EXTREMITIES: No cyanosis, clubbing, or pedal edema. NEUROLOGICAL: Gross neurological examination did not reveal any focal deficits. SKIN: No rashes. Dictation was produced using [employer] dictation software. please excuse any grammatical, word or spelling errors. Patient Condition at Discharge: Good Plan - Discharge Summary Discharge Rx Participant: Yes New Discharge Prescriptions: New hydrOXYzine HCL [Atarax] 10 mg PO TID PRN #15 tab PRN Reason: Anxiety Folic Acid 1 mg PO DAILY 30 Days #30 tab Pantoprazole [Protonix] 40 mg PO DAILY 30 Days #30 tab Thiamine [Vitamin B-1] 100 mg PO DAILY 30 Days #30 tab Discharge Medication List Folic Acid 1 mg PO DAILY 30 Days #30 tab 11/27/24 [Rx] Pantoprazole [Protonix] 40 mg PO DAILY 30 Days #30 tab 11/27/24 [Rx] Thiamine [Vitamin B-1] 100 mg PO DAILY 30 Days #30 tab 11/27/24 [Rx] hydrOXYzine HCL [Atarax] 10 mg PO TID PRN #15 tab 11/27/24 [Rx] Follow up Appointment(s)/Referral(s): Henok More MD [Primary Care Provider] - 1-2 days Issa Kincaid [NON-STAFF] - Deniz Kincaid [NON-STAFF] - Discharge/Stand Alone Forms: AA Meetings [address] - [facility], AA Meetings [place], Outpatient Counseling, In Substance Abuse Facilities Discharge Disposition: HOME SELF-CARE
[2024-11-27] MEDS: hydrOXYzine HCL 10 MG TAB PO ONE (14:50)
[2024-11-27 16:51] VITALS: BP 109/73; PULSE 90
== END 2024-11-27 18:29 | disposition home or self-care (01) | DRG 641 ==
LOC: EC 05:11 → 3SCARD 13:01
PROVIDERS: ADMIT Family Medicine; ATTEND Family Medicine
DX: E87.1 Hypo-osmolality and hyponatremia (principal); F10.231 Alcohol dependence with withdrawal delirium; F20.0 Paranoid schizophrenia; J44.89 Other specified chronic obstructive pulmonary disease; F10.229 Alcohol dependence with intoxication, unspecified; E87.6 Hypokalemia; F17.200 Nicotine dependence, unspecified, uncomplicated; M79.7 Fibromyalgia; Z87.11 Personal history of peptic ulcer disease; M19.90 Unspecified osteoarthritis, unspecified site; F90.9 Attention-deficit hyperactivity disorder, unspecified type; R11.2 Nausea with vomiting, unspecified
CPT/HCPCS: 36415; 70450; 80053; 80143; 80179; 80306; 80320; 81001; 82803; 83605; 83690; 83735; 83930; 84100; 85025; 85610; 93005; 96361; 96374; 96375; 96376; 99285

== ENCOUNTER → 2025-05-31 | Outpatient (CLI) | payer OTHER ==
--- NOTE | 2025-05-31 10:56 | MR ---
INDICATION: Patient age:Female; 45 years old; Reason for study: R27.0 ATAXIA, UNSPECIFIED; [facility]. COMPARISON: CT brain 11/26/2024, 02/09/2020, 01/13/2020. TECHNIQUE: Multi planar, multi sequence imaging was performed through the brain. The patient was then given 7 cc of Gadobutrol intravenously and multi planar, T1 fat-saturation images were obtained. FINDINGS: Motion degraded exam. The rodriguez-white junctions, ventricular system, basal cisterns appear unremarkable. Age-appropriate cer ebral parenchymal volume. Diffusion-weighted imaging shows no evidence of restricted diffusion to sug gest acute/subacute infarct. Intracranial arterial flow voids are maintained. Midline structures show no abnormality. No FLAIR signal abnormalities. The susceptibility weighted images do not reveal any evidence for micro-hemorrhage. After administration of gadolinium, no abnormal enhancement is seen. The bone marrow signal is within normal limits. The paranasal sinuses and globes are unremarkable. IMPRESSION: No evidence of intracranial mass, acute/subacute infarct, or abnormal enhancement. [facility], , 05/31/2025 10:53 AM
== END | disposition home or self-care (01) ==
LOC: RADMRIMAIN 09:52
PROVIDERS: ATTEND Internal Medicine Geriatric Medicine
DX: R27.0 Ataxia, unspecified (principal)
CPT/HCPCS: 70553; A9585